=== PATIENT | male | born 1950 | race Caucasian/White ===

== ENCOUNTER → 2017-06-05 | Outpatient (CLI) | payer BC ==
[~2017-06-05] MED LIST: ACC10 PO; ADVIN25050 INH; BUPRTAB51 PO; CALC500T68 PO; CHOL2000 PO; FLM4 PO; HYDC25 PO; MULT-506 PO; OXYC15TA89 PO; POTA550T4 PO; SERT50TA PO; VNTHFA/IN INH
[2017-06-05 12:22] LABS: BLOOD UREA NITROGEN 18 mg/dl (7-18)
[2017-06-05 12:23] LABS: CREATININE 0.92 mg/dl (0.60-1.40)
== END | disposition home or self-care (01) ==
LOC: C.LAB 09:33
PROVIDERS: ATTEND Physician Assistant
DX: Z01.812 Encounter for preprocedural laboratory examination (principal)

== ENCOUNTER 2017-07-10 11:23 | Inpatient (IN) | payer BC, OTHER ==
[~2017-07-10] VITALS: Ht 167.6 cm; Wt 105.2 kg
[2017-07-10] VITALS (8 sets, daily range): BP systolic 107–134; BP diastolic 60–73; PULSE 96–103; TEMP 36.9–37.4; O2SAT 96–97; Ht 167.6 cm; Wt 105.2 kg
[2017-07-10] MEDS ORDERED: SODIUM CHLORIDE 0.9% 1000ML 1,000 ML IV ONE ×3 (12:00→17:30)
[2017-07-10 12:30] LABS: CALCIUM 8.7 mg/dl (8.5-10.1); CREATININE 2.42 mg/dl (0.60-1.40); POTASSIUM 3.4 mmol/L (3.5-5.1)
[2017-07-10 12:36] LABS: HEMATOCRIT 22.9 % (42-52); HEMOGLOBIN 7.6 g/dL (14.0-18.0); MEAN CELL VOLUME 84.8 fL (80-100); MEAN CORPUSCULAR HEMOGLOBIN 28.1 pg (25-34); MEAN CORPUSCULAR HGB CONC 33.2 g/dl (32-36); MEAN PLATELET VOLUME 10.3 fL (7.4-10.4); PLATELET COUNT 256 K/uL (130-400); RED CELL DISTRIBUTION WIDTH SD 43.8 fL (36.4-46.3); WHITE BLOOD COUNT 30.54 K/uL (4.8-10.8)
[2017-07-10 12:42] LABS: BASO ABS # 0.01 K/uL (0-0.2); IG# 0.14 K/uL (0.00-0.02); LYMPH % 2.3 %; LYMPH ABS # 0.69 K/uL (1.2-3.4); MONO % 4.4 %; MONO ABS # 1.34 K/uL (0.11-0.59); NEUT % 92.8 %; NEUT ABS # 28.36 K/uL (1.4-6.5)
--- NOTE | 2017-07-10 12:49 | DIAGNOSTIC IMAGING REPORT ---
SINGLE VIEW CHEST CLINICAL HISTORY: Fever and chills. FINDINGS: An AP, portable, upright chest radiograph is compared to study dated 12/20/2015. The examination is degraded by portable technique and patient rotation. The heart is enlarged and there is atherosclerotic calcification of the thoracic aorta. The pulmonary vasculature is noncongested. There is no airspace consolidation or large pleural effusion. No pneumothorax is seen. The skeletal structures are osteopenic. The bony thorax is grossly intact. Fusion hardware projects over the thoracolumbar junction. Skin clips also project over the back. IMPRESSION: Cardiomegaly with no acute cardiopulmonary abnormality. Electronically signed by: Noel Hanna M.D. 07/10/2017 12:47 PM Dictated Date/Time: 07/10/2017 12:46 PM
[2017-07-10] MEDS ORDERED: METO25TA3 PO (13:01)
[2017-07-10] MEDS ORDERED: GABA1CAP4 PO (13:01)
[2017-07-10] MEDS ORDERED: MORP1TAB11 PO (13:01)
[2017-07-10] MEDS ORDERED: PIPERACILLIN/TAZOBACTAM 4.5 GM/100ML D5W IV STA (13:35)
[2017-07-10] MEDS ORDERED: DAPTOmycin IV 600 MG in SODIUM CHLORIDE 0.9% 50ML 50 ML IV ONE (13:45)
[2017-07-10] MEDS ORDERED: LORAZEPAM 2 MG/ML 1 ML VIAL IV STA (14:59)
--- NOTE | 2017-07-10 15:02 | DIAGNOSTIC IMAGING REPORT ---
ABD/PELVIS NO IV OR ORAL CONT CT DOSE: 1048.54 mGy.cm HISTORY: Pain abd distension; recent back surgery TECHNIQUE: Multiaxial CT images of the abdomen and pelvis were performed without contrast. A dose lowering technique was utilized adhering to the principles of ALARA. COMPARISON STUDY: 11/24/2013 FINDINGS: Hematoma with several contained air bubbles posterior to the low thoracic region. This measures 10 x 3 cm. It is posterior to interval placement of a jose stabilization procedure from the low thoracic through the upper lumbar region. There are small bilateral pleural effusions. There are findings of mild bibasilar atelectatic change. Liver spleen and pancreas are unremarkable. There is mild reactive colonic ileus. There are no obstructive changes. There is no intra-abdominal or intrapelvic free fluid. There is a Mckeon catheter within the bladder. There are pre-existing postoperative changes to the lumbar spine. IMPRESSION: 1. Interval development of a subcutaneous fluid pocket and/or hematoma posterior to the spine involving the low thoracic and upper lumbar region. 2. This appears to relate to interval placement of a jose stabilization procedure of the low thoracic through upper lumbar region. 3. Pre-existing laminectomy and fusion of the upper lumbar region to superior sacrum. 4. Mild reactive small bowel ileus with no true obstructive changes. 5. Small bilateral pleural effusions with bibasilar atelectatic change. The above report was generated using voice recognition software. It may contain grammatical, syntax or spelling errors. Electronically signed by: Jett James M.D. 07/10/2017 3:01 PM Dictated Date/Time: 07/10/2017 2:44 PM
--- NOTE | 2017-07-10 16:00 | DIAGNOSTIC IMAGING REPORT ---
LUMBAR SPINE W/O CONTRAST HISTORY: Pain evaluate for abscess TECHNIQUE: Multiplanar multisequence MRI of the lumbar spine was performed without the use of contrast. COMPARISON: CT abdomen and pelvis same date FINDINGS: For the purpose of the report the L5-S1 disc space will be located on axial image 26 of 33. Nondiagnostic exam due to extensive metallic artifact present. Soft tissue edematous change is noted posterior to the thoracolumbar spine. Appears to been near complete fusion of the thoracolumbar region. Transaxial images show no major compromise of the spinal canal. Evaluation of the low thoracic and upper lumbar region is essentially again nondiagnostic. IMPRESSION: 1. Essentially nondiagnostic exam due to the extensive metallic artifact throughout the low thoracic and lumbar spine. 2. Soft tissue edema posterior to the upper lumbar region and to a lesser extent lower lumbar region. 3. No evidence for focal collection or abscess within the mid to lower lumbar spine. 4. No major compromise of the lower lumbar spinal canal. 5. The study again is nondiagnostic in reference to the low thoracic and upper lumbar region due to the metallic artifact present. The above report was generated using voice recognition software. It may contain grammatical, syntax or spelling errors. Electronically signed by: Jett James M.D. 07/10/2017 3:58 PM Dictated Date/Time: 07/10/2017 3:56 PM
--- NOTE | 2017-07-10 16:15 | DIAGNOSTIC IMAGING REPORT ---
THORACIC SPINE WITHOUT HISTORY: Postoperative pain same TECHNIQUE: Multiplanar multisequence MRI of the thoracic spine was performed without the use of contrast. COMPARISON: CT same date FINDINGS: Nondiagnostic exam due to considerable metallic artifact. The study is nondiagnostic in terms of the low thoracic region. The upper thoracic region shows moderate degenerative disc change. Due to patient motion the study again is essentially nondiagnostic. The mid to upper thoracic region shows degenerative disc change throughout. No major compromise of the spinal canal is present. There is a subcutaneous fluid collection within the subcutaneous tissues extending from the level of T6 inferiorly to mL of minimal T9. This appears to have a maximum linear dimension of 8 cm with transaxial measurements within the subcutaneous fat of 8 x 2 cm. Within limitations of the artifact present, a major extension or significant extension to the spinal canal is appreciated. IMPRESSION: 1. Near nondiagnostic exam due to considerable metallic artifact. 2. Subcutaneous somewhat complex fluid pocket posterior to the thoracic spinal canal from T6 to approximately T9, although it may have more of an inferior extension which is not seen due to metallic artifact. 3. Diagnostic considerations include a subcutaneous hematoma with several small air bubbles most likely present on a postoperative basis. 4. No definite extension to the spinal canal although this is of questionable accuracy due to the severe metallic artifact present. The above report was generated using voice recognition software. It may contain grammatical, syntax or spelling errors. Electronically signed by: Jett James M.D. 07/10/2017 4:14 PM Dictated Date/Time: 07/10/2017 4:09 PM
[2017-07-10] MEDS ORDERED: ICU PROTOCOL FOR HYPERGLYCEMIA PRN ×2 (17:30→22:15)
[2017-07-10] MEDS ORDERED: LORAZEPAM 2 MG/ML 1 ML VIAL IV PRN (17:30)
[2017-07-10] MEDS ORDERED: HYDROmorphone INJ 0.5 MG/0.5 ML SYR IV PRN (17:30)
[2017-07-10] MEDS ORDERED: ACETAMINOPHEN 325 MG TAB PO PRN (17:30)
[2017-07-10] MEDS ORDERED: ONDANSETRON INJ 2 MG/ML 2 ML VIAL IV PRN ×2 (17:30→19:45)
[2017-07-10] MEDS ORDERED: PIPERACILL/TAZOBAC CONSULT ACTIVE PRN (17:45)
[2017-07-10] MEDS ORDERED: DAPTOmycin IV 600 MG in SODIUM CHLORIDE 0.9% 50ML 50 ML IV SCH (17:45)
[2017-07-10] MEDS ORDERED: GLYCOPYRROLATE INJ 0.2 MG/ML VIAL ONE (17:54)
[2017-07-10] MEDS ORDERED: THROMBIN 5000 UNITS KIT ONE (17:54)
[2017-07-10] MEDS ORDERED: ROCURONIUM BROMIDE 10 MG/ML 5 ML VIAL IV ONE (17:54)
[2017-07-10] MEDS ORDERED: SUCCINYLCHOLINE CHLORIDE 20 MG/ML 10 ML VIAL IV ONE (17:54)
[2017-07-10] MEDS ORDERED: LIDOCAINE HCL 2% 2 ML VIAL (20MG/ML) ONE (17:54)
[2017-07-10] MEDS ORDERED: PROPOFOL IV EMULSION 10 MG/ML 20 ML VIAL IV ONE (17:54)
[2017-07-10] MEDS ORDERED: DEXAMETHASONE SOD INJ 4 MG/ML VIAL ONE (17:54)
[2017-07-10] MEDS ORDERED: ONDANSETRON INJ 2 MG/ML 2 ML VIAL ONE (17:54)
[2017-07-10] MEDS ORDERED: NEOSTIGMINE METHYLSULFATE 1 MG/ML 10ML VIAL ONE (17:54)
[2017-07-10] MEDS ORDERED: BACITRACIN 50000 UNIT VIAL ONE ×2 (17:55→17:56)
[2017-07-10] MEDS ORDERED: MIDAZOLAM HCL 1 MG/ML 2ML VIAL ONE (17:55)
[2017-07-10] MEDS ORDERED: FENTANYL CITRATE INJ 50 MCG/1 ML 2 ML VIAL ONE (17:56)
[2017-07-10] MEDS ORDERED: ETOMIDATE 2 MG/ML 20 ML VIAL IV ONE ×2 (17:58→19:38)
[2017-07-10] MEDS ORDERED: KETAMINE HCL INJ 50 MG/ML 10 ML VIAL ONE (17:58)
[2017-07-10] MEDS ORDERED: PIPERACILL/TAZOBAC IV 3.375 GM in DEXTROSE 5% 100ML 100 ML IV SCH (18:00)
--- NOTE | 2017-07-10 18:11 | EMERGENCY ROOM VISIT NOTE ---
ED Visit Note First contact with patient: 11:47 HPI: 67M 12 day s/p T12-L1 fusion here with f/c/rigors, BLE weakness and loss of sensation. Plan: 0/5 strength BLE with loss of sensation from nipple line distally. +1L urinary retention likely neurogenic and likely contributing factor of acute renal failure. MRI non-diagnositic 2/[address] abd/pel demonstrates 10x3 fluid collection posterior to lower T and upper L spine. Given patient's septic presentation patient treated with broad spectrum antibiotics. PA in consultation with Dr. Hill, on-call spine, as well as patient's Spine surgeon , Dr. Torres. Patient to be admitted to ICU. Planned transfusion for Hbg 7.6 to optimize for surgery once medically stable. I reviewed the patient's past medical history, medications, and visit nursing notes. I discussed the case with the physician assistant program manager, examined the patient, and agree with the findings and plan as documented in the physician assistants note.
--- NOTE | 2017-07-10 18:15 | History and Physical ---
History & Physical Date & Time of Service: Jul 10, 2017 at 17:43 Chief Complaint: Back Pain Primary Care Physician: William Hudson D.O. History of Present Illness Source: patient, spouse 67 y/o M Hx HTN, BPH, asthma. Pt underwent T12-L1 fusion 1and hardware placement 2 days prior. A drain was in place until 2 days ago. Since removal of the drain, the pt's reports that he has likely had fevers and has been intermittently somnolent without use of sedatives. The pt developed rigors today and presented to the ER. He was hypotensive on arrival. We could not confirm a fever. Initial labs are notable for leukocytosis, anemia and ARF. A lumbar MRI was obtained and reveals a fluid collection at the surgical site. Image quality is poor owing to surrounding hardware and an abscess could not be confirmed. The orthopedic service was contacted as there is considerable concern for hardware infection. the pt is presumed severely septic and will likely proceed to the OR emergently. 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 Smoking Status: Never Smoker Drug Use: none Marital Status: Occupational Status: employed Immunizations History of Influenza Vaccine: Yes Influenza Vaccine Date: Apr 02, 2008 History of Tetanus Vaccine?: Yes Tetanus Immunization Date: Jun 02, 2005 History of Pneumococcal: Yes Pneumococcal Date: Jun 02, 2000 History of Hepatitis B Vaccine: Yes Hepatitis Immunization Date: Jun 02, 1998 Multi-Drug Resistant Organisms History of MDRO: No Allergies Coded Allergies: No Known Drug Allergy (Verified Allergy, Unknown, ., 07/10/17) POLLEN (Verified Allergy, Unknown, HAY FEVER, 05/22/16) NSAIDs (Verified Adverse Reaction, Unknown, doesn't take had gastric bypass, 07/10/17) Home Medications Scheduled Bupropion (Wellbutrin-Xl), 300 MG PO QAM Calcium W/ Magnesium (Calcium/Magnesium), 1 TAB PO QAM Cholecalciferol (Vitamin D3), 2 CAP PO QAM Fluticasone Prop/Salmeterol (Advair Diskus 250-50 Mcg/Dose), 1 PUFF INH BID Gabapentin (Gabapentin), 300 MG PO HS Hydrochlorothiazide (Hctz *), 25 MG PO QAM Metoprolol Succinate (Toprol Xl), 12.5 MG PO DAILY Morphine Sulfate (Morphine Sulfate Er), 15 MG PO Q12 Multivitamin (Multivitamin), 1 TAB PO QAM Potassium Gluconate (Potassium Gluconate), 1 TAB PO QAM Quinapril Hcl (Accupril *), 40 MG PO QAM Sertraline (Zoloft), 50 MG PO QAM Tamsulosin HCl (Tamsulosin HCl), 0.4 MG PO QAM Scheduled PRN Albuterol Hfa (Ventolin Hfa), 2-4 PUFFS INH Q6H PRN for Shortness of Breath Review of Systems Constitutional: + fever, + chills, + sweats, + weakness, + fatigue Eyes: No worsening of vision ENT: No hearing loss, No nasal symptoms Respiratory: No cough, No sputum Cardiovascular: No chest pain, No orthopnea, No PND Abdomen: No pain, No nausea, No vomiting Musculoskeletal: + joint pain (pain in mid/lower back) Genitourinary - Male: No hematuria, No dysuria Neurologic: + weakness, No memory loss, No paralysis Psychiatric: No depression symptoms Endocrine: No fatigue Hematologic / Lymphatic: No abnormal bleeding/bruising Integumentary: No rash Allergic / Immunologic: No environmental allergies Physical Exam Vital Signs Date Time Temp Pulse Resp B/P (MAP) Pulse Ox O2 Delivery O2 Flow Rate FiO2 07/10/17 17:25 36.9 103 20 107/73 96 2.0 07/10/17 17:23 36.9 103 20 107/73 96 2.0 07/10/17 17:09 36.8 102 20 103/64 95 Nasal Cannula 2.0 07/10/17 16:27 108 07/10/17 16:25 108 20 107/59 92 Room Air 07/10/17 14:00 100 20 97/50 93 Room Air 07/10/17 13:21 99 107/65 93 Room Air 07/10/17 12:05 102 07/10/17 11:39 37.1 101 26 103/57 94 Room Air General Appearance: + pertinent finding (Rigorous and sonolent, overweight, middle-aged male who appears distressed) Head: normocephalic Eyes: normal inspection ENT: normal ENT inspection, pharynx normal Neck: supple, no JVD Respiratory/Chest: chest non-tender, lungs clear, normal breath sounds Cardiovascular: regular rate, rhythm, no edema, no gallop Abdomen/GI: normal bowel sounds, non tender, soft Back: + pertinent finding (erythema surrounding surgical site - pt could not comfortable turn over) Extremities/Musculoskelatal: no calf tenderness, normal capillary refill, + pedal edema Neurologic/Psych: rn medicare II-XII nml as tested, no motor/sensory deficits, alert Skin: normal color, + pertinent finding (Erythema at surgical site) Diagnostics Laboratory Results Results Past 24 Hours Test 07/10/17 11:40 07/10/17 12:09 07/10/17 12:40 07/10/17 14:00 Range/Units White Blood Count 30.54 4.8-10.8 K/uL Red Blood Count 2.70 4.7-6.1 M/uL Hemoglobin 7.6 14.0-18.0 g/dL Hematocrit 22.9 42-52 % Mean Corpuscular Volume 84.8 80-100 fL Mean Corpuscular Hemoglobin 28.1 25-34 pg Mean Corpuscular Hemoglobin Concent 33.2 32-36 g/dl Platelet Count 256 130-400 K/uL Mean Platelet Volume 10.3 7.4-10.4 fL Neutrophils (%) (Auto) 92.8 % Lymphocytes (%) (Auto) 2.3 % Monocytes (%) (Auto) 4.4 % Eosinophils (%) (Auto) 0.0 % Basophils (%) (Auto) 0.0 % Neutrophils # (Auto) 28.36 1.4-6.5 K/uL Lymphocytes # (Auto) 0.69 1.2-3.4 K/uL Monocytes # (Auto) 1.34 0.11-0.59 K/uL Eosinophils # (Auto) 0.00 0-0.5 K/uL Basophils # (Auto) 0.01 0-0.2 K/uL RDW Standard Deviation 43.8 36.4-46.3 fL RDW Coefficient of Variation 14.0 11.5-14.5 % Immature Granulocyte % (Auto) 0.5 % Immature Granulocyte # (Auto) 0.14 0.00-0.02 K/uL Large Platelets 1+ Erythrocyte Sedimentation Rate 63 0-14 mm/hr Sodium Level 133 136-145 mmol/L Potassium Level 3.4 3.5-5.1 mmol/L Chloride Level 99 98-107 mmol/L Carbon Dioxide Level 24 21-32 mmol/L Anion Gap 10.0 3-11 mmol/L Blood Urea Nitrogen 53 7-18 mg/dl Creatinine 2.42 0.60-1.40 mg/dl Est Creatinine Clear Calc Drug Dose 33.2 ml/min Estimated GFR () 31.1 Estimated GFR (Non- 26.8 BUN/Creatinine Ratio 21.9 10-20 Random Glucose 72 70-99 mg/dl Calcium Level 8.7 8.5-10.1 mg/dl C-Reactive Protein 37.30 0-0.29 mg/dl Lipase 76 73-393 U/L Bedside Glucose 98 70-99 mg/dl Bedside Lactic Acid Venous 0.94 0.90-1.70 mmol/L Urine Color DK YELLOW Urine Appearance CLOUDY CLEAR Urine pH 5.0 4.5-7.5 Urine Specific [place] 1.023 1.000-1.030 Urine Protein 1+ NEG Urine Glucose (UA) NEG NEG Urine Ketones TRACE NEG Urine Occult Blood 2+ NEG Urine Nitrite NEG NEG Urine Bilirubin NEG NEG Urine Urobilinogen NEG NEG Urine Leukocyte Esterase NEG NEG Urine WBC (Auto) 1-5 0-5 /hpf Urine RBC (Auto) 0-4 0-4 /hpf Urine Hyaline Casts (Auto) 1-5 0-5 /lpf Urine Epithelial Cells (Auto) >30 0-5 /lpf Urine Bacteria (Auto) NEG NEG Urine Renal Epithelial Cells 0-5 0-5 /lpf Urine Crystals TALC NONE PRSENT Urine Pathogenic Casts 1-5 GRANULAR CASTS 0 /lpf Urine Yeast (Auto) NONE PRSENT Microbiology Results 07/10/17 Blood Culture, Received Pending 07/10/17 Blood Culture, Received Pending 07/10/17 Urine Culture, Received Pending Diagnostic Radiology MRI lumbar 1. Near nondiagnostic exam due to considerable metallic artifact. 2. Subcutaneous somewhat complex fluid pocket posterior to the thoracic spinal canal from T6 to approximately T9, although it may have more of an inferior extension which is not seen due to metallic artifact. 3. Diagnostic considerations include a subcutaneous hematoma with several small air bubbles most likely present on a postoperative basis. 4. No definite extension to the spinal canal although this is of questionable accuracy due to the severe metallic artifact present. EKG Sinus tach - PVCs Impression Assessment and Plan 67 y/o M Hx HTN, BPH, asthma. Pt underwent T12-L1 fusion 1and hardware placement 2 days prior. A drain was in place until 2 days ago. Since removal of the drain, the pt's reports that he has likely had fevers and has been intermittently somnolent without use of sedatives. The pt developed rigors today and presented to the ER. He was hypotensive on arrival. We could not confirm a fever. Initial labs are notable for leukocytosis, anemia and ARF. A lumbar MRI was obtained and reveals a fluid collection at the surgical site. Image quality is poor owing to surrounding hardware and an abscess could not be confirmed. The orthopedic service was contacted as there is considerable concern for hardware infection. the pt is presumed severely septic and will likely proceed to the OR emergently. 1) Sepsis - presumably due to post-op spinal infection - pt assigned to the ICU - orthopedics consulted, laundry operator finishing notified. We have placed him on Dapto/ Zosyn pending culture results. Aggressive IVF provided - may need pressors if hypotension recurs. A lactic acid is pending. he will likely need to proceed to the OR despite critical condition. have spoken to the pt and his in detail regarding his current condition. 2) ARF - likely due to sepsis and volume depletion - IVF provided - trend BMP 3) Anemia - we are transfusing 2 units PRBCs - he may need 2 additional units depending on operative blood loss. 4) HTN - Meds held due to hypotension 5) BPH - catheter to be placed - cont Flomax Full code - SCDs Total time for this admit including review of labs, meds, imaging, EKG - discussion with pt, , laundry operator finishing, orthopedist and ER attending - inc critical care time - 55 mi Level of Care Critical Care Resuscitation Status FULL RESUSCITATION VTE Prophylaxis VTE Risk Assessment Done? Y/N: Yes Risk Level: Moderate Given or contraindicated: SCD's
[2017-07-10] MEDS ORDERED: ESMOLOL HCL 10 MG/ML 10 ML VIAL ONE (19:31)
[2017-07-10] MEDS ORDERED: CISATRACURIUM BESYLATE IV SOLN 2 MG/ML 10 ML VIAL ONE (19:31)
[2017-07-10] MEDS ORDERED: PHENYLEPHRINE HCL INJ 10 MG/ML VIAL ONE ×2 (19:39→19:46)
[2017-07-10] MEDS ORDERED: PHENYLEPHRINE 100MCG/ML 5ML SYR ONE (19:39)
[2017-07-10] MEDS ORDERED: EpHEDrine SULFATE INJ 50 MG/ML AMP IV PRN (19:45)
[2017-07-10] MEDS ORDERED: ATROPINE SULFATE 0.1 MG/ML 5ML SYR IV PRN (19:45)
[2017-07-10] MEDS ORDERED: HYDROmorphone INJ 1 MG/ML SYR IV PRN (19:45)
[2017-07-10] MEDS ORDERED: NALOXONE HCL 0.4 MG/1 ML VIAL/CARP IV PRN (19:45)
[2017-07-10] MEDS ORDERED: THROMBIN FOR SOLN 20000 UNIT KIT ONE (19:46)
[2017-07-10] MEDS ORDERED: FLOSEAL HEMOSTATIC MATRIX 5ML TOP ONE (20:21)
--- NOTE | 2017-07-10 20:34 | [facility] Post Operative Brief Note ---
Immediate Operative Summary Operative Date Jul 10, 2017. Pre-Operative Diagnosis Thoraco-lumbar spinal abscess Post-Operative Diagnosis Thoraco-lumbar spinal abscess Procedure(s) Performed T10-T11 Laminectomy, I&D Surgeon Dr. Torres Patrol Man Surgeon(s) OR staff Estimated Blood Loss 300cc Findings Consistent with Post-Op Diagnosis Specimens A. Explanted Hardware For Culture: 1. Thoracic Abscess - routine - gram stain, aerobic/anaerobic, c+s Anesthesia Type General Complication(s) none Disposition Accompanied Pt To Recover: yes Disposition: Surgical ICU
--- NOTE | 2017-07-10 20:37 | DIAGNOSTIC IMAGING REPORT ---
SPINE ONE VIEW, ANY LEVEL CLINICAL HISTORY: I D SPINE COMPARISON STUDY: Lumbar spine MRI July 10, 2017. Fluoroscopy time: 2 seconds. FINDINGS: Exact localization is difficult given partial visualization of the spine however a multilevel thoracolumbar spine fusion is partially imaged. Surgical instrument is likely at the T10-T11 level. IMPRESSION: Intraoperative localization likely at the T10-T11 level. Electronically signed by: Kelton Muolton M.D. 07/10/2017 8:35 PM Dictated Date/Time: 07/10/2017 8:32 PM
[2017-07-10 20:57] LABS: HEMATOCRIT 23.9 % (42-52); HEMOGLOBIN 8.1 g/dL (14.0-18.0)
--- NOTE | 2017-07-10 21:02 | EMERGENCY ROOM VISIT NOTE ---
ED Visit Note First contact with patient: 11:47 Chief Complaint: Bilateral lower leg numbness and paralysis. History of Present Illness: Mr. eLvi is a 67-year-old white male who is brought into the ED via ambulance accompanied by his complaining of bilateral leg numbness and paralysis. Historically patient had a spinal fusion starting at the level of L1 to L5 many years ago and had no complications. On 06/29/2017 he had a spinal fusion from T10 to L1. This surgery was performed by Dr. Pelletier at the [facility]. He reports since the surgery his pain has been well- controlled. reports that his surgical drain was removed on Sunday, July 07, and reports there was a lot of bleeding when the drain was removed. Patient goes on to report that yesterday he started having some chills and felt he may have had a fever. Then late last night he started having weakness in both legs and was not able to bear weight. Today EMS was activated and he was transferred into the ED. EMS reports patient was slightly hypotensive and tachycardic. He had no acute changes en route. On my initial evaluation patient's only complaint was a mild pulling sensation in the cervical area. He was unable to rate this discomfort. He did not identify any aggravating or alleviating factors related to this sensation. He has not taken any medications for this sensation prior to arrival at the hospital. Patient still complains of chills and rigors, decreased appetite, decreasing urination and decreasing bowel movements. He denies skin eruptions, skin color changes, headache, dizziness, lightheadedness, upper respiratory tract, cough, wheezing, shortness of breath, chest pain, palpitations, abdominal pain, nausea, vomiting, bloody stools, bloody urine, upper extremity weakness/numbness/tingling. Additionally reports that she noted last evening his abdomen appeared distended. Patient agrees with this remark but still denies abdominal pain. Review of Systems: As noted above in history of present illness. All body systems were reviewed and found to be negative as noted above. Past Medical History: As previously noted, hypertension, Current Medications: Medications Dose Route/Sig Max Daily Dose Days Date Category Gabapentin 300 Mg Cap 300 Mg PO HS 07/10/17 Reported Toprol Xl (Metoprolol Succinate) 25 Mg Tabcr 12.5 Mg PO DAILY 07/10/17 Reported Morphine Sulfate Er (Morphine Sulfate) 15 Mg Tab 15 Mg PO Q12 07/10/17 Reported Calcium/Magnesium (Calcium W/ Magnesium) 1 Tab 1 Tab PO QAM 05/22/16 Reported Potassium Gluconate 550 Mg Tab 1 Tab PO QAM 05/22/16 Reported Multivitamin (Multivitamins) Tab 1 Tab PO QAM 05/22/16 Reported Vitamin D3 (Cholecalciferol) 2,000 Unit Cap 2 Cap PO QAM 90 05/22/16 Reported Ventolin Hfa (Albuterol) 200 Puffs/43842 Mcg Aers 2-4 Puffs INH Q6H PRN 05/22/16 Reported Advair Diskus 250-50 Mcg/Dose (Fluticasone Prop/Salmeterol) 14 Puff/1 Inhaler Aerp 1 Puff INH BID 05/22/16 Reported Wellbutrin-Xl (Bupropion HCl) 300 Mg Tabcr 300 Mg PO QAM 11/24/13 Reported Tamsulosin HCl 0.4 Mg Cap 0.4 Mg PO QAM 11/24/13 Reported Zoloft (Sertraline HCl) 50 Mg Tab 50 Mg PO QAM 11/05/08 Reported Hctz * (Hydrochlorothiazide) 25 Mg Tab 25 Mg PO QAM 11/05/08 Reported Accupril * (Quinapril HCl) 40 Mg Tab 40 Mg PO QAM 11/05/08 Reported Allergies to Medications: NSAIDs. Social History: Patient is currently employed; he feels safe in his home environment; he denies tobacco use. Physical Examination: Vital Signs: Date Time Temp Pulse Resp B/P (MAP) Pulse Ox O2 Delivery O2 Flow Rate FiO2 07/10/17 18:12 37.0 101 20 113/72 95 Nasal Cannula 2.0 07/10/17 17:55 37.0 102 20 113/72 96 2.0 07/10/17 17:40 37.4 103 20 112/60 96 2.0 07/10/17 17:25 36.9 103 20 107/73 96 2.0 07/10/17 17:23 36.9 103 20 107/73 96 2.0 07/10/17 17:09 36.8 102 20 103/64 95 Nasal Cannula 2.0 07/10/17 16:27 108 07/10/17 16:25 108 20 107/59 92 Room Air 07/10/17 14:00 100 20 97/50 93 Room Air 07/10/17 13:21 99 107/65 93 Room Air 07/10/17 12:05 102 07/10/17 11:39 37.1 101 26 103/57 94 Room Air GENERAL: 67-year-old male in mild distress due to pain, toxic-appearing, afebrile and hemodynamically stable. NEUROLOGICAL: Awake, alert and oriented to person, place and time. Answering questions appropriately and following commands. Good hand eye coordination. Intermittently patient is found mumbling and talking to himself and possibly show sign for delirium. No sensation to light touch starting at below his nipples extending throughout the abdomen and into the lower extremities. SKIN: Warm, dry and pink. No soft tissue eruptions or trauma noted. Surgical site is clean dry and intact. HEENT: Atraumatic and normocephalic. PERRLA. Sclera white and conjunctiva pink. No drainage from naris. Oral cavity moist and pink. Pharynx is nonerythematous or edematous. Speech normal, slightly slow to respond. No lymphadenopathy. Trachea midline. No jugular venous distention. BACK: No tenderness over the bony spine. Surgical site is slightly tender to palpation but there is no erythema or ecchymosis. No CVA tenderness. THORAX: Lungs sounds are clear to auscultation and equal bilaterally with symmetrical chest wall. No wheezing, rales or rhonchi. HEART: Irregular rate and rhythm. No gallops, rubs or murmurs are appreciated. ABDOMEN: Distended and soft with mild tenderness in the lower abdomen bilaterally. Decreased bowel sounds in all quadrants. No guarding, rigidity or organomegaly. UPPER EXTREMITIES: Moves upper extremities well on command and with purpose. All distal neurovascular statuses are intact and equal bilaterally. 4/5 muscle strength in all movements of the shoulder, elbow, forearm and wrist. LOWER EXTREMITY: No tenderness over the hips, knees, ankles or feet. As previously noted he is not able to distinguish light sensations through any of these areas. No gross bony deformity or malrotation. He was not able to move the hip joints, knee and ankle joints. Mild dependent bilateral edema. Capillary refill was brisk and he had distal pulses intact and equal bilaterally. No calf tenderness or cords. ED Course: Patient is assessed as noted above. Patient's medication list was reviewed. Laboratory Testing: Medications Dose Route/Sig Max Daily Dose Days Date Category Gabapentin 300 Mg Cap 300 Mg PO HS 07/10/17 Reported Toprol Xl (Metoprolol Succinate) 25 Mg Tabcr 12.5 Mg PO DAILY 07/10/17 Reported Morphine Sulfate Er (Morphine Sulfate) 15 Mg Tab 15 Mg PO Q12 07/10/17 Reported Calcium/Magnesium (Calcium W/ Magnesium) 1 Tab Tab 1 Tab PO QAM 05/22/16 Reported Potassium Gluconate 550 Mg Tab 1 Tab PO QAM 05/22/16 Reported Multivitamin (Multivitamins) Tab 1 Tab PO QAM 05/22/16 Reported Vitamin D3 (Cholecalciferol) 2,000 Unit Cap 2 Cap PO QAM 90 05/22/16 Reported Ventolin Hfa (Albuterol) 200 Puffs/29718 Mcg Aers 2-4 Puffs INH Q6H PRN 05/22/16 Reported Advair Diskus 250-50 Mcg/Dose (Fluticasone Prop/Salmeterol) 14 Puff/1 Inhaler Aerp 1 Puff INH BID 05/22/16 Reported Wellbutrin-Xl (Bupropion HCl) 300 Mg Tabcr 300 Mg PO QAM 11/24/13 Reported Tamsulosin HCl 0.4 Mg Cap 0.4 Mg PO QAM 11/24/13 Reported Zoloft (Sertraline HCl) 50 Mg Tab 50 Mg PO QAM 11/05/08 Reported Hctz * (Hydrochlorothiazide) 25 Mg Tab 25 Mg PO QAM 11/05/08 Reported Accupril * (Quinapril HCl) 40 Mg Tab 40 Mg PO QAM 11/05/08 Reported Chest X-Ray: Was read by myself and the radiologist showing no acute infiltrates , effusions or pneumothorax. Radiologist note that the heart is enlarged and there is atherosclerotic calcification within the thoracic aorta. Noncontrast Abdominal/Pelvic CT: Was reviewed by myself and read by the radiologist showing interval development of a subcutaneous fluid pocket and/or hematoma posterior to the spine involving the lower thoracic and upper lumbar region. Interval placement of his spinal fusion. Previous laminectomy and fusion of the lumbar spine. Mild reactive small bowel loops consistent with an ileus but no obstructive changes and small bilateral pleural effusions and bibasilar atelectasis changes. Lumbar MRI Without Contrast: Was read by the radiologist and reviewed by myself showing essentially a nondiagnostic exam due to extensive metal artifact, soft tissue edema posterior to the upper lumbar region, no evidence of focal collection or abscess, no major compromises of the lower lumbar spinal canal. Thoracic MRI Without Contrast: Was reviewed by myself and read by the radiologist and shows a near nondiagnostic examination due to metal artifact, subcutaneous complex fluid pocket posterior to the thoracic spinal canal from T6 to T9, no definitive extension noted but questionable because of metallic artifact. Patient was hydrated with approximately 3 L of normal saline and received 4.5 mg of Zosyn IV and 600 mg of daptomycin IV. Additionally patient was tremulous during his MRI and received 0.5 mg of Ativan IV. Patient was reassessed multiple times during his stay in the emergency department. Patient's case was reviewed with Dr. Roy; in apparently assessed the patient we agreed on diagnostic approach, treatment, disposition and plan. Patient's case was consulted with Dr. Pelletier, orthopedic spine surgeon; he reported that he was not in town the day and that he would be calling Dr. Hill , orthopedic senior regulatory affairs specialist, to have the patient be further evaluated. Patient's case was consulted with Dr. Hill; on initial consultation he reports he had just talked with Dr. Pelletier, and that he would further evaluate the patient when the patient's MRI reading was back. Patient's case was consulted with case management and Dr. Leung, hospitalist; for medical admission. I did once again reconsult Dr. Hill and Dr. Pelletier once patient's MRIs and additional studies were completed; Dr. Pelletier reported that he was coming to the hospital to evaluate the patient for possible surgery. Patient was typed and crossed for 2 units of packed red blood cells and were ordered to be given. Patient and his were educated about today's findings. Clinical Impression: Acute sepsis. Probable surgical abscess and hematoma. Lower extremity paralysis. Acute kidney injury. Decision-Making: Initially my differential diagnosis I considered postsurgical abscess, hematoma, sepsis, and other causes. Patient's blood pressure: Hypotensive. Blood pressure disposition: Fluids. Disposition and Plan: Patient's care was transferred to Dr. Pelletier and Dr. Leung; at the time of transfer of care the 2 physicians were deciding whether the patient should be taking to the arm immediately for surgical evaluation or admitted to the ICU for further stabilization and then surgery. I have personally spent greater than 60 minutes of critical care time in the direct management of this patient. This includes bedside care, interpretation of diagnostic studies, and testing, discussion with consultants, patient, and family members, and other required patient management activities. This 30 minutes is in excess of all separately billable procedures.
--- NOTE | 2017-07-10 21:24 | Anesthesiology Progress Note ---
Anesthesia Post Op Note Date & Time Jul 10, 2017 at 21:24 Vital Signs Pain Intensity: 0 Vital Signs Past 12 Hours Date Time Temp Pulse Resp B/P (MAP) Pulse Ox O2 Delivery O2 Flow Rate FiO2 07/10/17 21:10 37.0 97 18 96 Oxymask 3 103/51 07/10/17 21:00 96 18 98 Oxymask 5 91/47 07/10/17 20:50 99 18 106/51 100 Oxymask 5 93/47 07/10/17 20:41 37.3 99 20 106/51 100 Oxymask 10 07/10/17 18:43 37.0 105 20 125/71 96 07/10/17 18:12 37.0 101 20 113/72 95 Nasal Cannula 2.0 07/10/17 17:55 37.0 102 20 113/72 96 2.0 07/10/17 17:40 37.4 103 20 112/60 96 2.0 07/10/17 17:25 36.9 103 20 107/73 96 2.0 07/10/17 17:23 36.9 103 20 107/73 96 2.0 07/10/17 17:09 36.8 102 20 103/64 95 Nasal Cannula 2.0 07/10/17 16:27 108 07/10/17 16:25 108 20 107/59 92 Room Air 07/10/17 14:00 100 20 97/50 93 Room Air 07/10/17 13:21 99 107/65 93 Room Air 07/10/17 12:05 102 07/10/17 11:39 37.1 101 26 103/57 94 Room Air Notes Mental Status: alert / awake / arousable, participated in evaluation Pt Amnestic to Procedure: Yes Nausea / Vomiting: adequately controlled Pain: adequately controlled Airway Patency, RR, SpO2: stable & adequate BP & HR: stable & adequate Hydration State: stable & adequate Anesthetic Complications: no major complications apparent
[2017-07-10 21:26] LABS: CREATININE 2.09 mg/dl (0.60-1.40)
[2017-07-10] MEDS ORDERED: D5W AND LACTATED RINGERS 1,000 ML IV SCH (21:30)
[2017-07-10 21:37] LABS: CALCIUM 7.5 mg/dl (8.5-10.1)
[2017-07-10] MEDS ORDERED: POTASSIUM CHLR 10 MEQ / WTR 10 MEQ in PREMIXED WATER 100 ML IV STA (21:40)
--- NOTE | 2017-07-10 21:41 | Critical Care Consultation ---
Critical Care Consultation Date of Consultation: Jul 10, 2017. Attending Physician: Eleuterio Leung M.D. Reason for Consultation: 67-year-old male with acute blood loss anemia, sepsis, hypovolemic shock, and JORDAN who underwent emergent T 10-11 laminectomy with I&D of lumbar abscess. History of Present Illness Patient is a 67-year-old male with a company past medical history multiple orthopedic surgeries, particularly of the lumbar spine. The patient underwent surgical intervention of the lumbar spine with hardware [place] on [place] [facility] [place] The patient was discharged on 07/01 with home health. Up to that point, he had been ambulating in his house with a walker and pain had been adequately controlled. On Sunday, 07/07, the PAT drain was removed. It was reported that there was a moderate amount of blood with the drain was removed. Since that time, the patient has noticed progressively worsening numbness from the upper abdomen down his legs. Yesterday, the patient developed increasing weakness and actually sustained a fall while attempting to stand up from a recliner. He had to be helped from the ground by his . Today, the patient was reportedly somewhat confused and felt lightheadedness in addition to weakness. He reports he has been unable to use his legs today. He describes complete numbness from his feet to his belly button. Patient presents to the ER today secondary to the above-mentioned complaints. He was found to have a significant leukocytosis of greater than 30,000. He had an acute anemia of 7.6 and 22.9. He received [address] as well as MRI of the thoracic and lumbar spines demonstrated possible hematoma versus abscess collection. Patient's blood pressure improved with aggressive IV fluid resuscitation. He was subsequently directed to the operating room under the care of Dr. Pelletier for emergent laminectomy with hardware removal and incision and drainage. Upon arrival to the ICU, the patient is awake, alert, and oriented. He describes minimal discomfort at this point. He reports that he has been thirsty over the last few days, but has had little urine output. He reports no history of prostate issues despite Flomax on his EMR. Patient currently denies any headaches, dizziness, blurry vision, chest pain, palpitations, shortness of breath, nausea, vomiting, hematochezia, melena, hematuria, or dysuria. Patient lives with family. He denies any smoking history, alcohol abuse, or illicit drug use. Past Medical/Surgical History Medical Problems: (1) Kidney stones (2) Sepsis (3) Spinal abscess (4) Hypertension (5) DARYL (6) Asthma (7) Depression (8) Osteoarthritis Surgical Problems: (1) H/O spinal fusion Family History No pertinent family history Noncontributory Social History Smoking Status: Never Smoker Smokeless Tobacco Use: No Alcohol Use: none Drug Use: none Marital Status: Housing Status: lives with significant other Occupation Status: employed Allergies Coded Allergies: No Known Drug Allergy (Verified Allergy, Unknown, ., 07/10/17) POLLEN (Verified Allergy, Unknown, HAY FEVER, 05/22/16) NSAIDs (Verified Adverse Reaction, Unknown, doesn't take had gastric bypass, 07/10/17) Home Medications Scheduled Bupropion (Wellbutrin-Xl), 300 MG PO QAM Calcium W/ Magnesium (Calcium/Magnesium), 1 TAB PO QAM Cholecalciferol (Vitamin D3), 2 CAP PO QAM Fluticasone Prop/Salmeterol (Advair Diskus 250-50 Mcg/Dose), 1 PUFF INH BID Gabapentin (Gabapentin), 300 MG PO HS Hydrochlorothiazide (Hctz *), 25 MG PO QAM Metoprolol Succinate (Toprol Xl), 12.5 MG PO DAILY Morphine Sulfate (Morphine Sulfate Er), 15 MG PO Q12 Multivitamin (Multivitamin), 1 TAB PO QAM Potassium Gluconate (Potassium Gluconate), 1 TAB PO QAM Quinapril Hcl (Accupril *), 40 MG PO QAM Sertraline (Zoloft), 50 MG PO QAM Tamsulosin HCl (Tamsulosin HCl), 0.4 MG PO QAM Scheduled PRN Albuterol Hfa (Ventolin Hfa), 2-4 PUFFS INH Q6H PRN for Shortness of Breath Current Inpatient Medications Current Inpatient Medications Medications (Trade) Dose Ordered Sig/Fabricio Route Start Time Stop Time Status Last Admin Dose Admin Acetaminophen (Tylenol Tab) 650 mg Q4H PRN PO 07/10/17 17:30 08/09/17 17:29 Lorazepam (Ativan Inj) 0.5 mg Q4H PRN IV 07/10/17 17:30 08/09/17 17:29 Ondansetron HCl (Zofran Inj) 4 mg Q6H PRN IV 07/10/17 17:30 08/09/17 17:29 Pantoprazole Sodium 40 mg/ Syringe 10 ml @ 5 mls/min DAILY IV 07/11/17 09:00 07/14/17 09:01 UNV Hydromorphone HCl (Dilaudid Inj) 0.5 mg Q4H PRN IV 07/10/17 17:30 07/24/17 17:29 Miscellaneous Information (Icu Protocol For Hyperglycemia) 1 ea PRN PRN N/A 07/10/17 17:30 07/12/17 17:29 Piperacillin Sod/ Tazobactam Sod 3.375 gm/Dextrose 115 ml @ 200 mls/hr Q6 IV 07/10/17 18:00 08/21/17 17:59 UNV Miscellaneous Information (Consult) 1 ea UD PRN N/A 07/10/17 17:45 08/09/17 17:44 UNV Daptomycin 600 mg/ Sodium Chloride 62 ml @ 100 mls/hr Q24H IV 07/10/17 17:45 07/24/17 17:44 UNV Dextrose/Lactated Ringer's 1,000 ml @ 200 mls/hr Q5H IV 07/10/17 21:30 08/09/17 21:29 Bupropion HCl (Wellbutrin-Xl Tab) 300 mg QAM PO 07/11/17 09:00 08/10/17 08:59 Salmeterol Xinafoate/ Fluticasone (Advair Diskus 250/50 Inh) 1 puff BID INH 07/10/17 21:00 08/09/17 20:59 Gabapentin (Neurontin Cap) 300 mg HS PO 07/10/17 21:00 08/09/17 20:59 Sertraline HCl (Zoloft Tab) 50 mg QAM PO 07/11/17 09:00 08/10/17 08:59 Tamsulosin HCl (Flomax Cap) 0.4 mg QAM PO 07/11/17 09:00 08/10/17 08:59 Hydromorphone HCl (Dilaudid Inj) 0.25 mg Q5M PRN IV 07/10/17 19:45 07/11/17 00:45 Naloxone HCl (Narcan Inj) 0.2 mg Q2M PRN IV 07/10/17 19:45 07/11/17 00:45 Ondansetron HCl (Zofran Inj) 4 mg ONE PRN IV 07/10/17 19:45 07/11/17 00:45 Ephedrine Sulfate (EpHEDrine SULFATE INJ) 5 mg Q5M PRN IV 07/10/17 19:45 07/11/17 00:45 Atropine Sulfate (Atropine Sulfate 0.1mg/ml Inj) 0.5 mg Q1M PRN IV 07/10/17 19:45 07/11/17 00:45 Review of Systems A complete 10-point Review of Systems was discussed with the patient, with pertinent positives and negatives listed in the History of Present Illness. All remaining Review of Systems questions can be considered negative unless otherwise specified. Physical Exam Date Time Temp Pulse Resp B/P (MAP) Pulse Ox O2 Delivery O2 Flow Rate FiO2 07/10/17 21:10 37.0 97 18 96 Oxymask 3 103/51 07/10/17 21:00 96 18 98 Oxymask 5 91/47 07/10/17 20:50 99 18 106/51 100 Oxymask 5 93/47 07/10/17 20:41 37.3 99 20 106/51 100 Oxymask 10 07/10/17 18:43 37.0 105 20 125/71 96 07/10/17 18:12 37.0 101 20 113/72 95 Nasal Cannula 2.0 07/10/17 17:55 37.0 102 20 113/72 96 2.0 07/10/17 17:40 37.4 103 20 112/60 96 2.0 07/10/17 17:25 36.9 103 20 107/73 96 2.0 07/10/17 17:23 36.9 103 20 107/73 96 2.0 07/10/17 17:09 36.8 102 20 103/64 95 Nasal Cannula 2.0 07/10/17 16:27 108 07/10/17 16:25 108 20 107/59 92 Room Air 07/10/17 14:00 100 20 97/50 93 Room Air 07/10/17 13:21 99 107/65 93 Room Air 07/10/17 12:05 102 07/10/17 11:39 37.1 101 26 103/57 94 Room Air VITAL SIGNS - Vital signs and nursing notes were reviewed. GENERAL - 67-year-old male appearing his stated age who is in no acute distress. Communicates well with provider and answers questions appropriately. HEAD - NC/AT. EYES - PERRL with EOMI bilaterally. Sclera anicteric. Palpebral conjunctiva pink and moist with no injection noted. EARS - No deformities of external structures noted on gross examination bilaterally. NOSE - Midline and without cyanosis. MOUTH/OROPHARYNX - Without perioral cyanosis. Buccal mucosa pink and dry. NECK - Neck with FROM. Supple to palpation. LUNGS - Chest wall symmetric without accessory muscle use, intercostals retractions, or central cyanosis. Normal vesicular breath sounds CTA B/L. No wheezes, rales, or rhonchi appreciated. CARDIAC - RRR with S1/S2. No murmur, rubs, or gallops appreciated. ABDOMEN - Abdominal contour obese without pulsations or visible masses. BS normoactive all four quadrants. No tenderness, palpable masses, hepatosplenomegaly, or ascites noted. EXTREMITIES - No clubbing or peripheral cyanosis. No pretibial edema present. +3 /5 radial and dorsalis pedis pulses palpated throughout. Unable to assess strength in the bilateral lower extremities secondary to peripheral weakness. Upper extremities with +2/5 strength bilaterally. Absent. Patellar reflexes on exam. Unable to discriminate sensation to light or sharp sensation to the bilateral lower extremities up to the midportion of the abdomen. NEUROLOGIC - Cranial nerves II through XII grossly intact. Extremity exam as above. PSYCH - A&Ox3 and cooperates fully with examiner. Pt is very pleasant and interacts well with examiner. Laboratory Results Last 24 Hours Test 07/10/17 11:40 07/10/17 12:09 07/10/17 12:40 07/10/17 14:00 White Blood Count 30.54 K/uL Red Blood Count 2.70 M/uL Hemoglobin 7.6 g/dL Hematocrit 22.9 % Mean Corpuscular Volume 84.8 fL Mean Corpuscular Hemoglobin 28.1 pg Mean Corpuscular Hemoglobin Concent 33.2 g/dl Platelet Count 256 K/uL Mean Platelet Volume 10.3 fL Neutrophils (%) (Auto) 92.8 % Lymphocytes (%) (Auto) 2.3 % Monocytes (%) (Auto) 4.4 % Eosinophils (%) (Auto) 0.0 % Basophils (%) (Auto) 0.0 % Neutrophils # (Auto) 28.36 K/uL Lymphocytes # (Auto) 0.69 K/uL Monocytes # (Auto) 1.34 K/uL Eosinophils # (Auto) 0.00 K/uL Basophils # (Auto) 0.01 K/uL RDW Standard Deviation 43.8 fL RDW Coefficient of Variation 14.0 % Immature Granulocyte % (Auto) 0.5 % Immature Granulocyte # (Auto) 0.14 K/uL Large Platelets 1+ Erythrocyte Sedimentation Rate 63 mm/hr Sodium Level 133 mmol/L Potassium Level 3.4 mmol/L Chloride Level 99 mmol/L Carbon Dioxide Level 24 mmol/L Anion Gap 10.0 mmol/L Blood Urea Nitrogen 53 mg/dl Creatinine 2.42 mg/dl Est Creatinine Clear Calc Drug Dose 33.2 ml/min Estimated GFR () 31.1 Estimated GFR (Non- 26.8 BUN/Creatinine Ratio 21.9 Random Glucose 72 mg/dl Calcium Level 8.7 mg/dl C-Reactive Protein 37.30 mg/dl Lipase 76 U/L Bedside Glucose 98 mg/dl Bedside Lactic Acid Venous 0.94 mmol/L Urine Color DK YELLOW Urine Appearance CLOUDY Urine pH 5.0 Urine Specific [place] 1.023 Urine Protein 1+ Urine Glucose (UA) NEG Urine Ketones TRACE Urine Occult Blood 2+ Urine Nitrite NEG Urine Bilirubin NEG Urine Urobilinogen NEG Urine Leukocyte Esterase NEG Urine WBC (Auto) 1-5 /hpf Urine RBC (Auto) 0-4 /hpf Urine Hyaline Casts (Auto) 1-5 /lpf Urine Epithelial Cells (Auto) >30 /lpf Urine Bacteria (Auto) NEG Urine Renal Epithelial Cells 0-5 /lpf Urine Crystals TALC Urine Pathogenic Casts 1-5 GRANULAR CASTS /lpf Urine Yeast (Auto) Test 07/10/17 17:58 07/10/17 20:49 Lactic Acid Level 0.9 mmol/L Hemoglobin 8.1 g/dL Hematocrit 23.9 % Sodium Level 138 mmol/L Potassium Level 3.0 mmol/L Chloride Level 108 mmol/L Carbon Dioxide Level 22 mmol/L Anion Gap 8.0 mmol/L Blood Urea Nitrogen 52 mg/dl Creatinine 2.09 mg/dl Est Creatinine Clear Calc Drug Dose 38.5 ml/min Estimated GFR () 37.1 Estimated GFR (Non- 32.0 BUN/Creatinine Ratio 25.0 Random Glucose 93 mg/dl Calcium Level 7.5 mg/dl Diagnostic Results Radiological imaging and reports were reviewed by myself. Radiologist's Interpretation as follows: SPINE ONE VIEW, ANY LEVEL CLINICAL HISTORY: I D SPINE COMPARISON STUDY: Lumbar spine MRI July 10, 2017. Fluoroscopy time: 2 seconds. FINDINGS: Exact localization is difficult given partial visualization of the spine however a multilevel thoracolumbar spine fusion is partially imaged. Surgical instrument is likely at the T10-T11 level. IMPRESSION: Intraoperative localization likely at the T10-T11 level. THORACIC SPINE WITHOUT HISTORY: Postoperative pain same TECHNIQUE: Multiplanar multisequence MRI of the thoracic spine was performed without the use of contrast. COMPARISON: CT same date FINDINGS: Nondiagnostic exam due to considerable metallic artifact. The study is nondiagnostic in terms of the low thoracic region. The upper thoracic region shows moderate degenerative disc change. Due to patient motion the study again is essentially nondiagnostic. The mid to upper thoracic region shows degenerative disc change throughout. No major compromise of the spinal canal is present. There is a subcutaneous fluid collection within the subcutaneous tissues extending from the level of T6 inferiorly to mL of minimal T9. This appears to have a maximum linear dimension of 8 cm with transaxial measurements within the subcutaneous fat of 8 x 2 cm. Within limitations of the artifact present, a major extension or significant extension to the spinal canal is appreciated. IMPRESSION: 1. Near nondiagnostic exam due to considerable metallic artifact. 2. Subcutaneous somewhat complex fluid pocket posterior to the thoracic spinal canal from T6 to approximately T9, although it may have more of an inferior extension which is not seen due to metallic artifact. 3. Diagnostic considerations include a subcutaneous hematoma with several small air bubbles most likely present on a postoperative basis. 4. No definite extension to the spinal canal although this is of questionable accuracy due to the severe metallic artifact present. LUMBAR SPINE W/O CONTRAST HISTORY: Pain evaluate for abscess TECHNIQUE: Multiplanar multisequence MRI of the lumbar spine was performed without the use of contrast. COMPARISON: CT abdomen and pelvis same date FINDINGS: For the purpose of the report the L5-S1 disc space will be located on axial image 26 of 33. Nondiagnostic exam due to extensive metallic artifact present. Soft tissue edematous change is noted posterior to the thoracolumbar spine. Appears to been near complete fusion of the thoracolumbar region. Transaxial images show no major compromise of the spinal canal. Evaluation of the low thoracic and upper lumbar region is essentially again nondiagnostic. IMPRESSION: 1. Essentially nondiagnostic exam due to the extensive metallic artifact throughout the low thoracic and lumbar spine. 2. Soft tissue edema posterior to the upper lumbar region and to a lesser extent lower lumbar region. 3. No evidence for focal collection or abscess within the mid to lower lumbar spine. 4. No major compromise of the lower lumbar spinal canal. 5. The study again is nondiagnostic in reference to the low thoracic and upper lumbar region due to the metallic artifact present. SINGLE VIEW CHEST CLINICAL HISTORY: Fever and chills. FINDINGS: An AP, portable, upright chest radiograph is compared to study dated 12/20/2015. The examination is degraded by portable technique and patient rotation. The heart is enlarged and there is atherosclerotic calcification of the thoracic aorta. The pulmonary vasculature is noncongested. There is no airspace consolidation or large pleural effusion. No pneumothorax is seen. The skeletal structures are osteopenic. The bony thorax is grossly intact. Fusion hardware projects over the thoracolumbar junction. Skin clips also project over the back. IMPRESSION: Cardiomegaly with no acute cardiopulmonary abnormality. ABD/PELVIS NO IV OR ORAL CONT CT DOSE: 1048.54 mGy.cm HISTORY: Pain abd distension; recent back surgery TECHNIQUE: Multiaxial CT images of the abdomen and pelvis were performed without contrast. A dose lowering technique was utilized adhering to the principles of ALARA. COMPARISON STUDY: 11/24/2013 FINDINGS: Hematoma with several contained air bubbles posterior to the low thoracic region. This measures 10 x 3 cm. It is posterior to interval placement of a jose stabilization procedure from the low thoracic through the upper lumbar region. There are small bilateral pleural effusions. There are findings of mild bibasilar atelectatic change. Liver spleen and pancreas are unremarkable. There is mild reactive colonic ileus. There are no obstructive changes. There is no intra-abdominal or intrapelvic free fluid. There is a Mckeon catheter within the bladder. There are pre-existing postoperative changes to the lumbar spine. IMPRESSION: 1. Interval development of a subcutaneous fluid pocket and/or hematoma posterior to the spine involving the low thoracic and upper lumbar region. 2. This appears to relate to interval placement of a jose stabilization procedure of the low thoracic through upper lumbar region. 3. Pre-existing laminectomy and fusion of the upper lumbar region to superior sacrum. 4. Mild reactive small bowel ileus with no true obstructive changes. 5. Small bilateral pleural effusions with bibasilar atelectatic change. Assessment & Plan (1) Hypovolemic shock (2) Acute blood loss anemia (3) S/P laminectomy (4) JORDAN (acute kidney injury) (5) Spinal abscess (6) Sepsis (7) Hypokalemia Reason Critically Ill: 67-year-old male with acute blood loss anemia, sepsis, hypovolemic shock, and JORDAN who underwent emergent T 10-11 laminectomy with I&D of lumbar abscess. Neuro - * CAM ICU: NEGATIVE * Bilateral Lower Extremity Numbness/Weakness in the setting of Spinal Abscess/ Hematoma s/p Laminectomy/I&D: * Continue neuro checks. * Dilaudid PRN pain. * Gabapentin * Appreciate Spiral Surgery Recommendations. * Depression/Anxiety: * Continue Zoloft/Wellbutrin * PRN Ativan Cardiac - * PMHx HTN: * Hold Rx 2/2 HYPOtension. * EKG shows SR w/ PVCs at 99bpm - unchanged. QTc 449ms * Initially hypotensive - responded to IVF/PRBCs. * Pressor support as needed. * Will check cardiac enzymes in the setting of acute blood loss anemia: * Will help gauge need for PRBCs/possible global ischemia. * Will add CPK in the setting of Daptomycin use. * Monitor on Tele. * AM EKGs/EKGs for pain. Respiratory - * h/o Asthma: * Continue Advair. * Will add PRN Xopenex/Atrovent. * Likely DARYL Dx: * Will monitor. * Consider adding CPAP if needed. * Supplemental O2 PRN. * Monitor continuous Pulse Oximetry. GI - * Prophylaxis: Protonix * NPO overnight. RENAL/LYTES - * JORDAN: * 2/2 ??Hypovolemic Shock vs. Obstructive Uropathy?? * Aggressive IVF prior to arrival. * Excessive thirst over last few days with minimal urine output. No sensation in abdomen for bladder pain/spasm. Using Narcotics w/ h/o BPH. * Mckeon Catheter to gravity * IVF: NSS+20mEq KCl@100mL/min * Hypokalemia: * IV replacement until no longer NPO. - * Mckeon Catheter - Strict I&Os * Continue Flomax as BP tolerates. ENDO - * h/o DM - now controlled w/ Diet and Weight Loss: * ISS/gtt PRN. * No h/o Thyroid Dz HEME - * Acute Blood Loss Anemia: * EBL 300 mL intraoperatively. * Initial H&H 7.6/22.9 * Will trend. * Received 2U PRBCs p/t arrival in ICU. * Will add 3rd Unit as H&H minimally improved - ??dilution+anemia vs. progressive bleed?? * Will assume end organ ischemia in the setting of JORDAN - will add cardiac enzymes/liver enzymes for further evaluation. * Will continue to replace as needed. * Leukemoid Reaction 2/2 hematoma vs. sepsis: * Continue to trend. ID - * Spinal Abscess s/p I&D: * Blood Cultures/Abscess Culture Pending. * Antibiotics: Daptomycin/Zosyn * Will check CPK for baseline while receiving Dapto 2/2 associated Rhabdo reactions - particularly in the setting of JORDAN. * Initial Lactate negative - will trend. * Will add ProCal LINES/IV ACCESS - * PIVs Intact. * A-Line in place per Anesthesia Placement. DVT PROPHYLAXIS - * Will hold on chemoprophylaxis at this point 2/2 recent hematoma/blood loss anemia/surgery. * SCDs in place. I have personally spent 45 minutes of critical care time in the direct management of this patient. This is a life/limb threatening event. This includes time spent evaluating patient, direct bedside care, chart review, placing orders, interpretation of diagnostic studies, discussion with consultants, patient, and family members, as well as other required patient management activities. This time is exclusive of all separately billable procedures, and teaching time and separate from and in addition to any other critical care service time. Thank you for this consultation allow us to be part of this patient's care. Please refer to my attending physician's documentation for any further recommendations. attending addendum, the case seen , evaluated agree with the above, in summary the pt with laminectomy, for hardware adjacent infection, started empirically on dapto and zosyn, post op day 0, will continue with abx for at least 2 weeks. neuro eval, DVT prophylaxis, appreciate ortho input. CCT 45 min. Problem Qualifiers (1) Sepsis: Sepsis type: sepsis due to unspecified organism Qualified Codes: A41.9 - Sepsis, unspecified organism
[2017-07-10] MEDS ORDERED: PIPERACILL/TAZOBAC IV 4.5 GM in DEXTROSE 5% 100ML IV ONE (22:00)
[2017-07-10] MEDS ORDERED: SODIUM CHLOR 0.45% + 20MEQ KCL 1,000 ML IV SCH (22:00)
[2017-07-10] MEDS: FLUTICASONE/SALMETEROL 250/50 (ADVAIR) 14 PUFF/1 INHALER INH SCH (22:25)
[2017-07-11] VITALS (57 sets, daily range): BP systolic 71–177; BP diastolic 40–113; PULSE 48–173; TEMP 36.6–37.7; O2SAT 91–97
[2017-07-11] MEDS: GABAPENTIN 300 MG CAP PO SCH ×2 (00:03→10:44)
[2017-07-11] MEDS: POTASSIUM CHLR 10 MEQ / WTR 10 MEQ in PREMIXED WATER 100 ML IV SCH ×3 (01:06→03:30)
[2017-07-11] MEDS ORDERED: PIPERACILL/TAZOBAC IV 4.5 GM in DEXTROSE 5% 100ML IV SCH (02:00)
[2017-07-11] MEDS ORDERED: INFLUENZA VACCINE HIGH DOSE 65+ 0.5 ML SYR IM. ONE (02:15)
[2017-07-11] MEDS ORDERED: PNEUMOCOCCAL ADMINISTRATION CHARGE ONE (02:15)
[2017-07-11] MEDS ORDERED: PNEUMOCOCCAL POLYSACCHARIDES 25 MCG/0.5 ML VIAL/SYR IM. ONE (02:15)
[2017-07-11] MEDS ORDERED: INFLUENZA ADMINISTRATION CHARGE ONE (02:15)
[2017-07-11 02:25] LABS: HEMATOCRIT 25.6 % (42-52); HEMOGLOBIN 8.5 g/dL (14.0-18.0); MEAN CELL VOLUME 83.9 fL (80-100); MEAN CORPUSCULAR HEMOGLOBIN 27.9 pg (25-34); MEAN CORPUSCULAR HGB CONC 33.2 g/dl (32-36); MEAN PLATELET VOLUME 10.2 fL (7.4-10.4); PLATELET COUNT 190 K/uL (130-400); RED CELL DISTRIBUTION WIDTH CV 14.1 % (11.5-14.5); RED CELL DISTRIBUTION WIDTH SD 43.6 fL (36.4-46.3); WHITE BLOOD COUNT 24.94 K/uL (4.8-10.8)
[2017-07-11 03:06] LABS: ALBUMIN 1.4 gm/dl (3.4-5.0); CALCIUM 7.4 mg/dl (8.5-10.1); CREATININE 1.8 mg/dl (0.60-1.40); PHOSPHORUS 3.1 mg/dl (2.5-4.9); POTASSIUM 3.5 mmol/L (3.5-5.1); TOTAL PROTEIN 4.4 gm/dl (6.4-8.2)
[2017-07-11 03:20] LABS: BASO ABS # 0.01 K/uL (0-0.2); EOS ABS # 0.01 K/uL (0-0.5); IG# 0.13 K/uL (0.00-0.02); LYMPH ABS # 0.49 K/uL (1.2-3.4); MONO ABS # 0.76 K/uL (0.11-0.59); NEUT % 94.5 %; NEUT ABS # 23.54 K/uL (1.4-6.5)
[2017-07-11] MEDS: HYDROmorphone INJ 0.5 MG/0.5 ML SYR IV PRN ×3 (07:55→13:57)
--- NOTE | 2017-07-11 08:14 | OPERATIVE REPORT ---
DATE OF OPERATION: 07/10/2017 PREOPERATIVE DIAGNOSES: 1. Epidural abscess versus hematoma. 2. Previous thoracolumbar fusion instrumentation and T12-L1 decompression. 3. Lower extremity paraparesis. POSTOPERATIVE DIAGNOSES: Same. PROCEDURES: 1. Irrigation and debridement of thoracolumbar spine abscess. 2. T10 and T11 laminectomy. 3. Crosslink hardware removal, T11-12. SURGEON: Jung Torres MD. FIRST AID DIRECTOR: OR staff. ANESTHESIA: General endotracheal anesthesia. COMPLICATIONS: None. ESTIMATED BLOOD LOSS: 350 mL. INDICATIONS: The patient is a 67-year-old male with prior lumbar fusion from L1-S1 who underwent an elective extension of the fusion to T10 with instrumentation and T12-L1 decompression. He did well initially postoperatively, but 2 days prior to presentation noted an increasing numbness that began extending to lower extremities. He became confused and reportedly did note ambulatory difficulties 24 hours prior to presentation to the ED. Symptoms progressed and after noting a low-grade fever, presented to ED with left lower extremity paraparesis. He had no active motor function, bilateral LE's & decreased sensation to light touch from the umbilicus distally. He was somewhat confused and lethargic. Workup revealed markedly elevated white count, hypertension and purulence draining from the incision. MRI was limited in quality of the thoracic and lumbar spine due to metallic artifact from hardware. After discussion with her medical physicians, anesthesia and patient's family, he was brought emergently to the OR for procedures as above. DESCRIPTION OF THE PROCEDURE: After identification of patient and operative level, he was brought to the OR where he underwent induction of general anesthesia. He was then positioned prone on the David OR table with all bony prominences well padded. Care was taken to avoid pressure on the periorbital area. Lumbosacral area was sterilely prepped and draped in usual fashion. Antibiotics were administered. Time-out was performed. Level was confirmed and a thoracolumbar incision was reopened and gross purulent material was identified. There was also bloody discharge. There was eliezer purulence at the subcutaneous tissue and jose abscess. There appeared to be communication of deep and the distal fascia just above the decompression with purulent material throughout. Cultures were taken. All suture material was removed. The fascia was released and consolidated organized hematoma was noted in the laminectomy bed at T12-L1. I removed all of this material after placement of Gelpi's so that the dural tube could be well visualized. I then passed a [place] elevator to the remaining T12 lamina superiorly and pus was noted, released purulent drainage to be released from the lamina. I then completed T12 laminectomy, continued to ascend with the decompression using Kerrisons as long as I could visualize purulent material deep to lamina and ligamentum flavum. I continued to decompress widely until I ran into the crosslink which was removed. After removal of T11, no further purulent material was noted. I then moved along the flavum and inferior portion of T10, confirmed that there were no further visualized purulent material. I removed the remaining bone of L1 distally, probed distal to this and did not find any more purulent material. I then irrigated with bacitracin solution and pulse lavage care taken to avoid applying pulse lavage to the dural tube. I then irrigated regular irrigation solution. I then applied FloSeal and bone wax for hemostasis. I then used fluoroscopy to confirm extent of decompression up to the T10 pedicle screws. I then placed a PAT drain deep after confirmation of acceptable hemostasis and closed the fascia with Prolene sutures and then closed skin with Vicryl and eve. All sponge and needle counts were correct at the end of the case. The patient remained hemodynamically stable throughout the case. I attest to the content of the Intraoperative Record and any orders documented therein. Any exceptions are noted below. ARI
[2017-07-11 08:30] LABS: HEMATOCRIT 28.6 % (42-52); HEMOGLOBIN 9.8 g/dL (14.0-18.0)
[2017-07-11] MEDS ORDERED: TAMSULOSIN HCL 0.4 MG CAP PO SCH (09:00)
[2017-07-11] MEDS ORDERED: PANTOprazole INJ 40 MG in SYRINGE 0 ML IV SCH (09:00)
[2017-07-11] MEDS ORDERED: BuPROPion XL 300 MG TABCR PO SCH (09:00)
[2017-07-11] MEDS ORDERED: SERTRALINE HCL 50 MG TAB PO SCH (09:00)
--- NOTE | 2017-07-11 09:59 | Hospitalist Progress Note ---
Hospitalist Progress Note Date of Service Jul 11, 2017. Subjective Pt evaluation today including: conversation w/ patient, conversation w/ family , physical exam, chart review, lab review, review of studies, conversation w/ family consultant PO Intake: Fair Voiding: haynes catheter in place The patient was seen and examined this morning. Pt and are present at bedside. The patient was seen in conjunction with Dr. Pelletier and Dr. Ren. The patient reports having intermittent pain throughout his back up into the shoulders, into his neck. He denies sensation of pain or light touch into bilateral lower extremities. The patient complains of an extremely dry mouth, and is requesting oral intake. He denies any difficulty with swallowing function or speech. He reports having sensation to light touch in the abdomen above the level of the umbilicus. Currently planning to begin a course of steroids, continue on broad-spectrum antibiotics, and supportive care. Additional Comments: Constitutional: No fever, sweats or chills Eyes: No diplopia, no worsening or blurred vision ENT: normal hearing, no trouble swallowing Respiratory: No cough, sputum, dyspnea at rest, patient denies shortness of breath Cardiovascular: No chest pain, tightness or palpitations Abdomen: No pain, + absent sensation to light touch below the umbilicus. No nausea, vomiting, diarrhea or constipation. Pt is unsure if he is passing gas. Musculoskeletal: No joint pain, calf pain, swelling Neurologic: sensation diminished below the level of the umbilicus and into BLE. Inability to move BLE. Psychiatric: No anxiety or depression Skin: No rash or itch Objective Vital Signs Date Time Temp Pulse Resp B/P (MAP) Pulse Ox O2 Delivery O2 Flow Rate FiO2 07/11/17 06:31 105 27 177/63 (101) 94 07/11/17 06:01 105 25 127/59 (81) 93 07/11/17 06:00 112 25 128/61 (83) 93 07/11/17 05:05 36.6 104 24 120/71 96 2.0 07/11/17 04:00 Nasal Cannula 2.0 07/11/17 03:58 36.7 103 24 139/63 97 2.0 07/11/17 03:28 36.7 103 22 131/62 95 2.0 07/11/17 03:15 36.9 101 21 123/89 95 2.0 07/11/17 03:10 36.9 103 23 135/66 96 2.0 07/11/17 00:00 Nasal Cannula 2.0 07/11/17 00:00 36.7 99 27 143/70 94 07/10/17 23:30 37.1 102 21 134/68 97 07/10/17 22:43 36.9 97 22 127/67 97 2.0 07/10/17 22:27 36.9 96 23 127/62 97 2.0 07/10/17 22:18 37.4 96 22 124/61 96 2.0 07/10/17 21:20 Room Air 2.0 07/10/17 21:10 37.0 97 18 96 Oxymask 3 103/51 07/10/17 21:00 96 18 98 Oxymask 5 91/47 07/10/17 20:50 99 18 106/51 100 Oxymask 5 93/47 07/10/17 20:41 37.3 99 20 106/51 100 Oxymask 10 07/10/17 18:43 37.0 105 20 125/71 96 07/10/17 18:12 37.0 101 20 113/72 95 Nasal Cannula 2.0 07/10/17 17:55 37.0 102 20 113/72 96 2.0 07/10/17 17:40 37.4 103 20 112/60 96 2.0 07/10/17 17:25 36.9 103 20 107/73 96 2.0 07/10/17 17:23 36.9 103 20 107/73 96 2.0 07/10/17 17:09 36.8 102 20 103/64 95 Nasal Cannula 2.0 07/10/17 16:27 108 07/10/17 16:25 108 20 107/59 92 Room Air 07/10/17 14:00 100 20 97/50 93 Room Air 07/10/17 13:21 99 107/65 93 Room Air 07/10/17 12:05 102 07/10/17 11:39 37.1 101 26 103/57 94 Room Air Physical Exam Notes: General: awake, alert, no apparent distress, occasionally has fine tremor in upper body Head: Normocephalic, atraumatic ENT: PERRL, EOMI, no pharyngeal exudate, MM dry Chest: Clear to auscultation, on room air, no adventitious breath sounds Cardiac: RRR with occasional PVC, no murmur, no JVD, normal peripheral pulses, good capillary refill Abdominal: NABS x 4 quadrants, soft, nontender to palpation. No sensation below the level of the umbilicus. Extremities: Normal inspection, minimal nonpitting BLE peripheral edema, no erythema, calfs nontender to palpation Psych: Normal mood and affect Neuro: AAO x 3, Flaccid paralysis of BLE with 0/5 strength. Patellar reflexes are absent. Babinski with outward flaring toes. Upper extremities: Strength is 3/5 in hand media senior recruiter on left and 2/5 on right. Pt is able to shrug shoulders and move his head and neck with full active ROM. He has sensation to light touch in upper extremities. Speech is clear. Laboratory Results Last 24 Hours Test 07/10/17 11:40 07/10/17 12:09 07/10/17 12:40 07/10/17 14:00 White Blood Count 30.54 K/uL Red Blood Count 2.70 M/uL Hemoglobin 7.6 g/dL Hematocrit 22.9 % Mean Corpuscular Volume 84.8 fL Mean Corpuscular Hemoglobin 28.1 pg Mean Corpuscular Hemoglobin Concent 33.2 g/dl Platelet Count 256 K/uL Mean Platelet Volume 10.3 fL Neutrophils (%) (Auto) 92.8 % Lymphocytes (%) (Auto) 2.3 % Monocytes (%) (Auto) 4.4 % Eosinophils (%) (Auto) 0.0 % Basophils (%) (Auto) 0.0 % Neutrophils # (Auto) 28.36 K/uL Lymphocytes # (Auto) 0.69 K/uL Monocytes # (Auto) 1.34 K/uL Eosinophils # (Auto) 0.00 K/uL Basophils # (Auto) 0.01 K/uL RDW Standard Deviation 43.8 fL RDW Coefficient of Variation 14.0 % Immature Granulocyte % (Auto) 0.5 % Immature Granulocyte # (Auto) 0.14 K/uL Large Platelets 1+ Erythrocyte Sedimentation Rate 63 mm/hr Sodium Level 133 mmol/L Potassium Level 3.4 mmol/L Chloride Level 99 mmol/L Carbon Dioxide Level 24 mmol/L Anion Gap 10.0 mmol/L Blood Urea Nitrogen 53 mg/dl Creatinine 2.42 mg/dl Est Creatinine Clear Calc Drug Dose 33.2 ml/min Estimated GFR () 31.1 Estimated GFR (Non- 26.8 BUN/Creatinine Ratio 21.9 Random Glucose 72 mg/dl Calcium Level 8.7 mg/dl C-Reactive Protein 37.30 mg/dl Lipase 76 U/L Bedside Glucose 98 mg/dl Bedside Lactic Acid Venous 0.94 mmol/L Urine Color DK YELLOW Urine Appearance CLOUDY Urine pH 5.0 Urine Specific Fouke 1.023 Urine Protein 1+ Urine Glucose (UA) NEG Urine Ketones TRACE Urine Occult Blood 2+ Urine Nitrite NEG Urine Bilirubin NEG Urine Urobilinogen NEG Urine Leukocyte Esterase NEG Urine WBC (Auto) 1-5 /hpf Urine RBC (Auto) 0-4 /hpf Urine Hyaline Casts (Auto) 1-5 /lpf Urine Epithelial Cells (Auto) >30 /lpf Urine Bacteria (Auto) NEG Urine Renal Epithelial Cells 0-5 /lpf Urine Crystals TALC Urine Pathogenic Casts 1-5 GRANULAR CASTS /lpf Urine Yeast (Auto) Test 07/10/17 17:58 07/10/17 20:49 07/11/17 00:12 07/11/17 02:08 Lactic Acid Level 0.9 mmol/L 0.8 mmol/L Hemoglobin 8.1 g/dL 8.5 g/dL Hematocrit 23.9 % 25.6 % Sodium Level 138 mmol/L 138 mmol/L Potassium Level 3.0 mmol/L 3.5 mmol/L Chloride Level 108 mmol/L 108 mmol/L Carbon Dioxide Level 22 mmol/L 21 mmol/L Anion Gap 8.0 mmol/L 9.0 mmol/L Blood Urea Nitrogen 52 mg/dl 50 mg/dl Creatinine 2.09 mg/dl 1.80 mg/dl Est Creatinine Clear Calc Drug Dose 38.5 ml/min 45.9 ml/min Estimated GFR () 37.1 44.5 Estimated GFR (Non- 32.0 38.4 BUN/Creatinine Ratio 25.0 28.0 Random Glucose 93 mg/dl 91 mg/dl Calcium Level 7.5 mg/dl 7.4 mg/dl Bedside Glucose 86 mg/dl White Blood Count 24.94 K/uL Red Blood Count 3.05 M/uL Mean Corpuscular Volume 83.9 fL Mean Corpuscular Hemoglobin 27.9 pg Mean Corpuscular Hemoglobin Concent 33.2 g/dl Platelet Count 190 K/uL Mean Platelet Volume 10.2 fL Neutrophils (%) (Auto) 94.5 % Lymphocytes (%) (Auto) 2.0 % Monocytes (%) (Auto) 3.0 % Eosinophils (%) (Auto) 0.0 % Basophils (%) (Auto) 0.0 % Neutrophils # (Auto) 23.54 K/uL Lymphocytes # (Auto) 0.49 K/uL Monocytes # (Auto) 0.76 K/uL Eosinophils # (Auto) 0.01 K/uL Basophils # (Auto) 0.01 K/uL RDW Standard Deviation 43.6 fL RDW Coefficient of Variation 14.1 % Immature Granulocyte % (Auto) 0.5 % Immature Granulocyte # (Auto) 0.13 K/uL Toxic Vacuolation 2+ Ovalocytes 1+ Echinocytes 1+ Phosphorus Level 3.1 mg/dl Magnesium Level 2.0 mg/dl Total Bilirubin 0.7 mg/dl Direct Bilirubin 0.3 mg/dl Aspartate Amino Transf (AST/SGOT) 48 U/L Alanine Aminotransferase (ALT/SGPT) 18 U/L Alkaline Phosphatase 74 U/L Total Creatine Kinase 1133 U/L Troponin I 0.066 ng/ml Total Protein 4.4 gm/dl Albumin 1.4 gm/dl Procalcitonin 6.19 ng/ml Test 07/11/17 08:04 Hemoglobin 9.8 g/dL Hematocrit 28.6 % Total Creatine Kinase 894 U/L Troponin I 0.127 ng/ml Assessment and Plan This is a 67 yo M who underwent previous L1-S1 lumbar fusion and required revision of the lumbar fusion at T10 and T12-L1 decompression which was done at [facility] 2 week prior to this admission. The patient had developed increased drainage and bleeding from the surgical site, spinal drain was left intact and was removed by home health nursing. On Sunday evening, pt developed increased numbess that descended into the legs bilaterally, low grade fevers, rigors and presented to the ER. At the time of admission he had been nonambulatory x 24 hours. The patient was taken for emergent O2 intervention due to severe sepsis. Abscess was I&Ds intraoperatively. Bilateral lower extremity paraplegia/areflexia/flaccid paralysis Sepsis - presumably due to post-op spinal infection Spinal shock - pt assigned to the ICU - WBC >30,000 at time of admission is today 24K. Acute anemia of 7.6 and 22.9 on admit now s/p 3 U PRBCs and maintained in the 9s. - CT as well as MRI of the thoracic and lumbar spines demonstrated possible hematoma versus abscess collection. 07/10: Pt taken to the OR by Dr. Pelletier for emergent laminectomy with hardware removal and incision and drainage - Cont Dapto/Zosyn - appreciate ID recs - Aggressive IVF provided - may need pressors if hypotension recurs, he is currently off the epinephrine gtt. - neurology consulted: planning on initiating steroids at this time and ICU. - Sensory level is above where his lumbar abscesses, possible that this is spinal shock - Possible that may re-image with MRI within next 24 hours. Initial imaging studies were very poor due to rigors associated with sepsis and pt inability to lie flat. JORDAN on CKD - likely due to sepsis and volume depletion - IVF provided - trend BMP - Cr slightly improved to 1.8 this morning from 2.4 at time of admission - UA with granular casts, likely ATN with acute volume depletion. Elevated Troponin - 0.066 -->0.127 - Will trend x 1 more set, at this time unlikely ACS - Likely secondary to volume - demand ischemia with acute anemia as described below. Anemia - Hgb improved to 9.8 s/p 3 U PRBCs, first 2 U were minimally effective. Continue to trend CBC with am labs, may need more frequent checks if any changes with mentation. - secondary to acute blood loss HTN - Meds held due to hypotension BPH - catheter to be placed - cont Flomax h/o Asthma Possible DARYL - cont advair , prn Xopenex/Atrovent. - continuous pulse O2, o2 protocol, consider CPAP DVT ppx: Teds, scds, no chemical anticoagulation CODE STATUS: FULL CODE Disposition: Consider transfer to tertiary care center if any further neurological compromise. Discharge unknown currently. Time spent including chart review, discussion with patient and family, discussion with consultants, medical decision making was 95 min.
--- NOTE | 2017-07-11 10:15 | Neurology Consultation ---
Neurology Consultation Date of Consultation: Jul 11, 2017. Attending Physician: Lucas Faustin D.O. Primary Care Physician: William Hudson D.O. Reason for Consultation: Consult for 4 limb weakness History of Present Illness Source: patient, hospital records This is a 67-year-old male who presents for worsening lower extremity weakness and fevers. He is recent T12 to L1 fusion. Patient was home for a few days and reportedly doing well. Home nursing had pulled drain. After which she seemed to start to have fevers. He noticed increased numbness going up his legs and body on Sunday. Family reports that he started to have altered mental status on Sunday along with fevers and chills and aches. Patient presented to the emergency room yesterday for further evaluation. MRI of L spine noted a fluid collection concerning for possible subcutaneous abscess in the thoracic region. Patient was treated for sepsis and acute renal failure. WBCs were noted to be elevated. Patient went to surgery early this morning for abscess debridement. operative note noted organized hematoma around T12-L1 and purulent discharge up to T11. Patient reports all over body pain, aches, and zaps. He reports a headache that seems similar to his past headaches but a little bit larger than normal. Reports stiff neck. Patient does have a history of neck pain and cervical fusion. He does report some zaps her sharp pains in his arms but is unclear whether these are true cervical radiculopathy symptoms versus a symptoms of his current sepsis. Patient feels weak all over in addition to his severe lower tremor weakness. At home family also reported that he seemed to not be going to the bathroom despite feeling thirsty and wanting to drink fluids. Patient denies any trouble swallowing or changes with vision. Past Medical/Surgical History Medical Problems: (1) Acute blood loss anemia Status: Acute (2) JORDAN (acute kidney injury) Status: Acute (3) Hypokalemia Status: Acute (4) Hypovolemic shock Status: Acute (5) Sepsis Status: Acute (6) Spinal abscess Status: Acute Surgical Problems: (1) S/P laminectomy Status: Acute Past mental history significant for hypertension, dyslipidemia, and asthma Family History Patient denies any significant family history Social History Patient works as a dentist. Normal independence activities of daily living although more recently has been using the assistance of a walker. No tobacco use. No alcohol use. No illegal drug use. Smoking Status: Never smoker Smokeless Tobacco Use: No Alcohol Use: none Drug Use: none Marital Status: Housing Status: lives with significant other Occupation Status: employed Allergies Coded Allergies: No Known Drug Allergy (Verified Allergy, Unknown, ., 07/10/17) POLLEN (Verified Allergy, Unknown, HAY FEVER, 05/22/16) NSAIDs (Verified Adverse Reaction, Unknown, doesn't take had gastric bypass, 07/10/17) Current Inpatient Medications Current Inpatient Medications Medications (Trade) Dose Ordered Sig/Fabricio Route Start Time Stop Time Status Last Admin Dose Admin Acetaminophen (Tylenol Tab) 650 mg Q4H PRN PO 07/10/17 17:30 08/09/17 17:29 Lorazepam (Ativan Inj) 0.5 mg Q4H PRN IV 07/10/17 17:30 08/09/17 17:29 Ondansetron HCl (Zofran Inj) 4 mg Q6H PRN IV 07/10/17 17:30 08/09/17 17:29 Pantoprazole Sodium 40 mg/ Syringe 10 ml @ 5 mls/min DAILY IV 07/11/17 09:00 07/14/17 09:01 07/11/17 07:55 5 MLS/MIN Miscellaneous Information (Consult) 1 ea UD PRN N/A 07/10/17 17:45 08/09/17 17:44 Bupropion HCl (Wellbutrin-Xl Tab) 300 mg QAM PO 07/11/17 09:00 08/10/17 08:59 Salmeterol Xinafoate/ Fluticasone (Advair Diskus 250/50 Inh) 1 puff BID INH 07/10/17 21:00 08/09/17 20:59 07/10/17 22:25 1 PUFF Gabapentin (Neurontin Cap) 300 mg HS PO 07/10/17 21:00 08/09/17 20:59 Sertraline HCl (Zoloft Tab) 50 mg QAM PO 07/11/17 09:00 08/10/17 08:59 Tamsulosin HCl (Flomax Cap) 0.4 mg QAM PO 07/11/17 09:00 08/10/17 08:59 Piperacillin Sod/ Tazobactam Sod 4.5 gm/Dextrose 120 ml @ 30 mls/hr Q8H IV 07/11/17 02:00 08/22/17 01:59 07/11/17 02:27 30 MLS/HR Daptomycin 600 mg/ Syringe 12 ml @ 6 mls/min DAILY@1400 IV 07/11/17 14:00 07/23/17 14:01 Miscellaneous Information (Icu Protocol For Hyperglycemia) 1 ea PRN PRN N/A 07/10/17 22:15 07/12/17 22:14 Hydromorphone HCl (Dilaudid Inj) 0.5 mg Q2HWA PRN IV 07/11/17 03:00 07/25/17 02:59 07/11/17 07:55 0.5 MG Miscellaneous Information (Pharmacy Consult) 1 ea NOW STAT N/A 07/11/17 08:48 07/11/17 08:49 UNV Sodium Chloride 1,000 ml @ 125 mls/hr Q8H IV 07/11/17 09:00 08/10/17 08:59 Review of Systems Complete review of systems otherwise negative except for the above-noted history of present illness Physical Exam Vital Signs (Past 24 Hrs): Date Time Temp Pulse Resp B/P (MAP) Pulse Ox O2 Delivery O2 Flow Rate FiO2 07/11/17 06:31 105 27 177/63 (101) 94 07/11/17 06:01 105 25 127/59 (81) 93 07/11/17 06:00 112 25 128/61 (83) 93 07/11/17 05:05 36.6 104 24 120/71 96 2.0 07/11/17 04:00 Nasal Cannula 2.0 07/11/17 03:58 36.7 103 24 139/63 97 2.0 07/11/17 03:28 36.7 103 22 131/62 95 2.0 07/11/17 03:15 36.9 101 21 123/89 95 2.0 07/11/17 03:10 36.9 103 23 135/66 96 2.0 07/11/17 00:00 Nasal Cannula 2.0 07/11/17 00:00 36.7 99 27 143/70 94 07/10/17 23:30 37.1 102 21 134/68 97 07/10/17 22:43 36.9 97 22 127/67 97 2.0 07/10/17 22:27 36.9 96 23 127/62 97 2.0 07/10/17 22:18 37.4 96 22 124/61 96 2.0 07/10/17 21:20 Room Air 2.0 07/10/17 21:10 37.0 97 18 96 Oxymask 3 103/51 07/10/17 21:00 96 18 98 Oxymask 5 91/47 07/10/17 20:50 99 18 106/51 100 Oxymask 5 93/47 07/10/17 20:41 37.3 99 20 106/51 100 Oxymask 10 07/10/17 18:43 37.0 105 20 125/71 96 07/10/17 18:12 37.0 101 20 113/72 95 Nasal Cannula 2.0 07/10/17 17:55 37.0 102 20 113/72 96 2.0 07/10/17 17:40 37.4 103 20 112/60 96 2.0 07/10/17 17:25 36.9 103 20 107/73 96 2.0 07/10/17 17:23 36.9 103 20 107/73 96 2.0 07/10/17 17:09 36.8 102 20 103/64 95 Nasal Cannula 2.0 07/10/17 16:27 108 07/10/17 16:25 108 20 107/59 92 Room Air 07/10/17 14:00 100 20 97/50 93 Room Air 07/10/17 13:21 99 107/65 93 Room Air 07/10/17 12:05 102 07/10/17 11:39 37.1 101 26 103/57 94 Room Air Gen.: Patient is alert and lying in bed with a diffuse shivering and Riggers HEENT: Normocephalic /atraumatic, no scleral icterus Heart: Regular rate and rhythm Extremities: No gross deformities or rashes noted Neurological examination: Mental status: Patient is alert and oriented x3. Attention and concentration normal for the situation. Good fund of knowledge. Remote and recent memory intact. Speech is fluent without any dysarthria or aphasia noted Cranial nerve: Funduscopic examination was unremarkable. No papilledema. Pupils equally round and reactive to light. Extraocular muscles intact without nystagmus. No facial asymmetry noted. Facial sensation intact. Tongue is midline. Good palatal elevation. Good shoulder shrug bilaterally. Hearing grossly intact to voice. Coordination: Patient had good finger to nose without dysmetria Sensation: Patient was unable to feel light touch or sharp in the bilateral lower extremities. Maybe had some vague sense towards the proximal lower extremities. Appeared to have a sensory level at T6 on the right and T4 on the left of his chest. Strength: 4/5 and bilateral upper extremities both proximally and distally. 0/5 bilateral lower extremities. Deep tendon reflexes: +1 in bilateral biceps brachioradialis. +0 in bilateral patellar. Toes were equivocal to plantar stimulation but did seem to have some withdrawal to plantar stimulation on the left. Gait unable to be tested due to paraparesis Laboratory Results Past 24 Hours: 07/11/17 02:08 Red Blood Count 3.05, Mean Corpuscular Volume 83.9, Mean Corpuscular Hemoglobin 27.9, Mean Corpuscular Hemoglobin Concent 33.2, Mean Platelet Volume 10.2, Neutrophils (%) (Auto) 94.5, Lymphocytes (%) (Auto) 2.0, Monocytes (%) (Auto) 3.0, Eosinophils (%) (Auto) 0.0, Basophils (%) (Auto) 0.0, Neutrophils # (Auto) 23.54, Lymphocytes # (Auto) 0.49, Monocytes # (Auto) 0.76, Eosinophils # (Auto) 0.01, Basophils # (Auto) 0.01 07/11/17 08:04 07/11/17 02:08 Test 07/10/17 11:40 07/10/17 12:40 07/10/17 14:00 07/11/17 00:12 Large Platelets 1+ Erythrocyte Sedimentation Rate 63 mm/hr (0-14) C-Reactive Protein 37.30 mg/dl (0-0.29) Lipase 76 U/L (73-393) Bedside Lactic Acid Venous 0.94 mmol/L (0.90-1.70) Urine Color DK YELLOW Urine Appearance CLOUDY (CLEAR) Urine pH 5.0 (4.5-7.5) Urine Specific [place] 1.023 (1.000-1.030) Urine Protein 1+ (NEG) Urine Glucose (UA) NEG (NEG) Urine Ketones TRACE (NEG) Urine Occult Blood 2+ (NEG) Urine Nitrite NEG (NEG) Urine Bilirubin NEG (NEG) Urine Urobilinogen NEG (NEG) Urine Leukocyte Esterase NEG (NEG) Urine WBC (Auto) 1-5 /hpf (0-5) Urine RBC (Auto) 0-4 /hpf (0-4) Urine Hyaline Casts (Auto) 1-5 /lpf (0-5) Urine Epithelial Cells (Auto) >30 /lpf (0-5) Urine Bacteria (Auto) NEG (NEG) Urine Renal Epithelial Cells 0-5 /lpf (0-5) Urine Crystals TALC (NONE PRSENT) Urine Pathogenic Casts 1-5 GRANULAR CASTS /lpf (0) Urine Yeast (Auto) (NONE PRSENT) Bedside Glucose 86 mg/dl (70-99) Test 07/11/17 02:08 07/11/17 08:04 White Blood Count 24.94 K/uL (4.8-10.8) Red Blood Count 3.05 M/uL (4.7-6.1) Hemoglobin 8.5 g/dL (14.0-18.0) Hematocrit 25.6 % (42-52) Mean Corpuscular Volume 83.9 fL (80-100) Mean Corpuscular Hemoglobin 27.9 pg (25-34) Mean Corpuscular Hemoglobin Concent 33.2 g/dl (32-36) Platelet Count 190 K/uL (130-400) Mean Platelet Volume 10.2 fL (7.4-10.4) Neutrophils (%) (Auto) 94.5 % Lymphocytes (%) (Auto) 2.0 % Monocytes (%) (Auto) 3.0 % Eosinophils (%) (Auto) 0.0 % Basophils (%) (Auto) 0.0 % Neutrophils # (Auto) 23.54 K/uL (1.4-6.5) Lymphocytes # (Auto) 0.49 K/uL (1.2-3.4) Monocytes # (Auto) 0.76 K/uL (0.11-0.59) Eosinophils # (Auto) 0.01 K/uL (0-0.5) Basophils # (Auto) 0.01 K/uL (0-0.2) RDW Standard Deviation 43.6 fL (36.4-46.3) RDW Coefficient of Variation 14.1 % (11.5-14.5) Immature Granulocyte % (Auto) 0.5 % Immature Granulocyte # (Auto) 0.13 K/uL (0.00-0.02) Toxic Vacuolation 2+ Ovalocytes 1+ Echinocytes 1+ Anion Gap 9.0 mmol/L (3-11) Est Creatinine Clear Calc Drug Dose 45.9 ml/min Estimated GFR () 44.5 Estimated GFR (Non- 38.4 BUN/Creatinine Ratio 28.0 (10-20) Lactic Acid Level 0.8 mmol/L (0.4-2.0) Calcium Level 7.4 mg/dl (8.5-10.1) Phosphorus Level 3.1 mg/dl (2.5-4.9) Magnesium Level 2.0 mg/dl (1.8-2.4) Total Bilirubin 0.7 mg/dl (0.2-1) Direct Bilirubin 0.3 mg/dl (0-0.2) Aspartate Amino Transf (AST/SGOT) 48 U/L (15-37) Alanine Aminotransferase (ALT/SGPT) 18 U/L (12-78) Alkaline Phosphatase 74 U/L (45-117) Total Protein 4.4 gm/dl (6.4-8.2) Albumin 1.4 gm/dl (3.4-5.0) Procalcitonin 6.19 ng/ml (0-0.5) Total Creatine Kinase 894 U/L (39-308) Troponin I 0.127 ng/ml (0-0.045) Date/Time Source Procedure Growth Status 07/10/17 22:00 Nasal MRSA DNA Surveillance Screen - Final Specimen Negative for MRSA by DNA Probe Complete Impression This is a 67-year-old male with progressive sensory deficits and paraplegia of the lower extremities since Sunday/Sunday. In addition has been having symptoms of fevers and chills consistent with found lumbar abscess and sepsis. Considering that his sensory level is above where his lumbar abscesses, may indicate a component of spinal shock. Alternative explanation would be non- visualized abscess higher up in the thoracic spine. Plan Continue with antibiotics for treatment of sepsis and lumbar abscess. I do not have a strong opinion for low dose versus high-dose pulsed steroids in this situation. I agree with physical therapy We'll see how patient does with the above treatment. If he continues to worsen or does not improve over the next day or so, could consider trying to repeat his thoracic spine to see if we image any other fluid collections concerning for abscess. I do not think the patient has any cervical lesion causing his weakness at this time. Thank you for allowing me to participate in this patient's care. If there is any questions or concerns, feel free to call/page me.
--- NOTE | 2017-07-11 10:21 | ORTHOPEDIC CONSULTATION ---
DATE OF CONSULTATION: 07/11/2017 HISTORY OF PRESENT ILLNESS: This patient was seen on 07/10/2017 in the ED after admission for confusion, rigors and paralysis. He is a 67-year-old male well known to myself having undergone previous L1-S1 lumbar fusion, who developed adjacent level disease and has required revision of his lumbar surgery with extension of fusion at T10 and T12-L1 decompression. This was done at an outside institution 2 weeks prior. He had significant sustained drain output. The drain was maintained and after removal, there was concern for some bleeding. He states that he noticed bleeding at the drain site. Following this, he developed increasing numbness that ascended in the legs. They did not seek evaluation initially. On the night prior to admission, he was unable to support himself on his legs and became confused and lethargic. His called for EMS transport and he was brought to the hospital. At the time of presentation, he had a flaccid paralysis in the lower extremities with mid abdominal sensory level. He has been nonambulatory for 24 hours. The patient was afebrile on admission, but was confused. reported low-grade fevers at home prior to admission to the ED. He was seen by medicine and anesthesia and in the ED, it was decided based upon hypertension, neurologic deficit and imaging showing a subcutaneous abscess, he should be brought to the OR emergently. PAST MEDICAL HISTORY: Diabetes, hypertension, depression, history of gastric bypass, history of posterior cervical fusion, history of lumbar fusion, hypertension, and asthma. ALLERGIES: NSAIDs. SOCIAL HISTORY: The patient is a dentist locally, works part-time. MEDICATIONS: List as per the EMR. REVIEW OF SYSTEMS: Per HPI. PHYSICAL EXAMINATION: GENERAL: At the time of my evaluation in the ED, the patient was confused, lethargic. He could answer some questions, but was somewhat somnolent. He was tachycardic and hypertensive. At the time of my evaluation, I inspected the prior thoracolumbar incision. There is eliezer purulent drainage from the incision. There is a large fluctuant area and subcutaneous tissue. HEENT: The patient is slow to respond with speech. His trachea is midline. No JVD. LUNGS: The patient had symmetric chest excursion without retractions. CARDIAC: Tachycardic ABDOMEN: Mildly distended, soft and no significant point tenderness, no guarding. EXTREMITIES: Revealed no pitting edema, nontender range of motion, no active range of motion. Passive range of motion-Nontender. NEUROLOGIC: The patient had approximately T6-T8 sensory level to light touch with no sensation distal to this. He had flaccid paralysis with 0/5 motor function in all motor groups in the lower extremities bilaterally. He was areflexic with testing of the patellar reflexes as well as ankle clonus. Babinski was nonresponsive. UPPER EXTREMITIES: Strength evaluation revealed intact motor function in all motor groups, but generalized weakness that appeared to be due to confusion. He appeared to have intact sensation to light touch in the upper extremities in all dermatomes. He had painless range of motion of the cervical spine, limited extension consistent with prior cervical fusion. IMAGING STUDIES: Thoracic and Lumbar MRI were reviewed. Image quality was significantly limited due to metallic artifact and motion artifact. The patient's upper mid thoracic spine did not appear to have any eliezer spinal cord compression or obvious abscess or fluid collection. Thoracolumbar spine was poorly visualized due to metallic artifact and motion artifact, subcutaneous fluid collection in subcutaneous tissues was noted. ASSESSMENT AND PLAN: The patient was brought emergently to the OR after consultation with anesthesia and medicine. Plan was for an emergent I&D of the thoracolumbar spine, exploration of the operative site, possible laminectomies, possible wound VAC application. Family is in agreement and the risk of lack of neurologic recovery was reviewed. ARI
[2017-07-11] MEDS ORDERED: DAPTOMYCIN CONSULT ACTIVE SCH (10:27)
[2017-07-11] MEDS ORDERED: SODIUM CHLORIDE 0.9% IV ONE (10:30)
[2017-07-11] MEDS ORDERED: METHYLPREDNISOLONE IV ONE (10:30)
[2017-07-11] MEDS: SODIUM CHLORIDE 0.9% 1000ML 1,000 ML IV SCH ×3 (10:41→22:48)
[2017-07-11] MEDS: FLUTICASONE/SALMETEROL 250/50 (ADVAIR) 14 PUFF/1 INHALER INH SCH ×2 (10:42→20:42)
--- NOTE | 2017-07-11 11:53 | Progress Note ---
Progress Note Date of Service Jul 11, 2017. Progress Note ID Consult Dictated #[id number] A/P: 1. Severe Sepsis with MODS - gpc sepsis 2. Post op infection - spinal fusion s/p I&D 3. Leukocytosis -Will continue emperic abx, follow cultures - suspect staph -Repeat cultures x 2 -Will need echo as well -With degree of paralysis would have low threshold for transfer to tertiary care center for neurosurgery eval -Steroids initiated, follow response -Thank you
--- NOTE | 2017-07-11 12:01 | Critical Care Progress Note ---
Critical Care Progress Note Date of Service Jul 11, 2017. Attending Dr. Ren Subjective The patient continues to have paraplegia, no sensation from the level of the umbilicus down below, the patient presented to the hospital with paraplegia, patient went to the OR emergently and underwent removal of hardware from the thoracolumbar spine and drainage of epidural abscess. The patient brought to the ICU for further monitoring. The patient in the ICU started to feel better however the pain was very uncontrollable. The patient continued to have no sensation in his lower extremities from the umbilical level down. He has no movement. His Babinskis were upgoing toes bilaterally. The patient was started empirically on Dilaudid for pain control, and he continued to have uncontrollable pain. He appeared to be very sensitive to Dilaudid doses. Anesthesia were consulted for pain control and their input is highly appreciated. The patient did not have any chest pain and no shortness of breath reported. He was on room air and his O2 saturation was 95%. Due to the persistent neurologic deficits and possible spinal cord shock or compression , the patient was started empirically on steroids. The patient oral intake was somewhat low. Objective The patient was awake but appeared lethargic. And his mental status also with the dose of Dilaudid, appreciate Dr. Wu assistance with adjusting the dose. Review of system was limited due to the patient pain control with narcotics. His physical exam revealed borderline blood pressure was 90/60, O2 saturation is 95% with nasal cannula, heart rate is 90 normal sinus rhythm with multiple ectopic beats. All appear to be atrial. No JVP, heart examination S1 and S2 regular rate and rhythm with ectopic beats, lungs with distant breath sounds at the bases, no crackles, abdomen is benign. Neuro examination revealed, normal cranial nerves bilaterally, 5 over 5 equal motor sensory function in the upper extremities. 0 over 5 in the lower extremities. No sensation from the level of the umbilicus and below. Babinski upgoing toes bilaterally. Areflexia in the patellar. Assessment & Plan #1 sepsis with gram-positive cocci bacteremia consistent with Staphylococcus aureus, sensitivities pending. #2 epidural abscess, status post removal of thoracolumbar hardware and abscess drainage. PAT in place. #3 spinal cord shock in which the patient blood pressure has been borderline supported with IV fluids. I am concerned the patient could be heading towards septic shock versus neurogenic shock. #4 paraplegia due to epidural abscess. #5 history of trigeminy rhythm. #6 borderline diabetes, diet-controlled. #7 acute kidney insufficiency in the face of sepsis. Plan: #1 I would continue with Zosyn and daptomycin. #2 I will change the IV fluid to normal saline given the patient isotonic fluid to maintain his blood pressure. #3 we will add norepinephrine if needed for blood pressure. #4 identification of the bacteremia noted to be Staphylococcus aureus, sensitivities pending, continue with current antibiotics. #5 the patient is very sensitive to all Dilaudid with 0.5 mg dose as he become more sleepy, the dose was adjusted to 0.2 mg every hour if needed. #[address] Wu input from anesthesia helping out with the management of this complex case. I agree with his plan adding gabapentin. #[address] Bagley input from infectious disease, we'll continue with the current antibiotics pending sensitivity. #8 although it is controversial, given the benefit and risk ratio with rather start the patient on Solu-Medrol drip to to help reduce inflammatory changes and hopefully it would add some benefits of starting spina cord function. The risk of hyperglycemia is minimal. Interaction with infectious process also is limited given the patient broad-spectrum antibiotic coverage. #9 DVT and GI prophylaxis provided. #[address] Torres from also, appreciate his input, we will start tonight heparin subcutaneous for DVT prophylaxis and start head elevation and OT consult. #11 given the patient sepsis and lack of neurosurgery service and our institution, I would plan to transfer the patient to the neuro unit where neurosurgery service is available and and further neuro monitoring is available. That can be accomplished at a tertiary care center. The patient underwent an emergency procedure and our institution and stabilize to the point that can be transferred to a tertiary care center. Discussed in details with the family who are in agreement in favor of this plan. #12 glucose control. #13 appreciate the input of pharmacy helping out with this case. Case discussed with the staff and details. Critical care time spent with the patient was 60 minutes. Data Medications: Current Inpatient Medications Medications (Trade) Dose Ordered Sig/Fabricio Route Start Time Stop Time Status Last Admin Dose Admin Acetaminophen (Tylenol Tab) 650 mg Q4H PRN PO 07/10/17 17:30 08/09/17 17:29 Lorazepam (Ativan Inj) 0.5 mg Q4H PRN IV 07/10/17 17:30 08/09/17 17:29 07/11/17 10:42 0.5 MG Ondansetron HCl (Zofran Inj) 4 mg Q6H PRN IV 07/10/17 17:30 08/09/17 17:29 Pantoprazole Sodium 40 mg/ Syringe 10 ml @ 5 mls/min DAILY IV 07/11/17 09:00 07/14/17 09:01 07/11/17 07:55 5 MLS/MIN Miscellaneous Information (Consult) 1 ea UD PRN N/A 07/10/17 17:45 08/09/17 17:44 Bupropion HCl (Wellbutrin-Xl Tab) 300 mg QAM PO 07/11/17 09:00 08/10/17 08:59 07/11/17 10:44 300 MG Salmeterol Xinafoate/ Fluticasone (Advair Diskus 250/50 Inh) 1 puff BID INH 07/10/17 21:00 08/09/17 20:59 07/11/17 10:42 1 PUFF Gabapentin (Neurontin Cap) 300 mg HS PO 07/10/17 21:00 08/09/17 20:59 07/11/17 10:44 300 MG Sertraline HCl (Zoloft Tab) 50 mg QAM PO 07/11/17 09:00 08/10/17 08:59 07/11/17 10:44 50 MG Tamsulosin HCl (Flomax Cap) 0.4 mg QAM PO 07/11/17 09:00 08/10/17 08:59 07/11/17 10:43 0.4 MG Piperacillin Sod/ Tazobactam Sod 4.5 gm/Dextrose 120 ml @ 30 mls/hr Q8H IV 07/11/17 02:00 08/22/17 01:59 07/11/17 02:27 30 MLS/HR Daptomycin 600 mg/ Syringe 12 ml @ 6 mls/min DAILY@1400 IV 07/11/17 14:00 07/23/17 14:01 Miscellaneous Information (Icu Protocol For Hyperglycemia) 1 ea PRN PRN N/A 07/10/17 22:15 07/12/17 22:14 Hydromorphone HCl (Dilaudid Inj) 0.5 mg Q2HWA PRN IV 07/11/17 03:00 07/25/17 02:59 07/11/17 10:42 0.5 MG Daptomycin (Consult) 1 ea UD N/A 07/11/17 10:27 08/10/17 10:26 Sodium Chloride 1,000 ml @ 125 mls/hr Q8H IV 07/11/17 09:00 08/10/17 08:59 07/11/17 10:41 125 MLS/HR Methylprednisolone Sodium Succinate 6530 mg/Sodium Chloride 354.48 ml @ 30.824 mls/hr TODAY@1115,2230 IV 07/11/17 11:15 07/12/17 09:59 Vital Signs: Date Time Temp Pulse Resp B/P (MAP) Pulse Ox O2 Delivery O2 Flow Rate FiO2 07/11/17 08:00 Room Air 07/11/17 08:00 37.7 104 20 109/69 (82) 94 Room Air 129/66 (87) 07/11/17 06:31 105 27 177/63 (101) 94 07/11/17 06:01 105 25 127/59 (81) 93 07/11/17 06:00 112 25 128/61 (83) 93 07/11/17 05:05 36.6 104 24 120/71 96 2.0 07/11/17 04:00 Nasal Cannula 2.0 07/11/17 03:58 36.7 103 24 139/63 97 2.0 07/11/17 03:28 36.7 103 22 131/62 95 2.0 07/11/17 03:15 36.9 101 21 123/89 95 2.0 07/11/17 03:10 36.9 103 23 135/66 96 2.0 07/11/17 00:00 Nasal Cannula 2.0 07/11/17 00:00 36.7 99 27 143/70 94 07/10/17 23:30 37.1 102 21 134/68 97 07/10/17 22:43 36.9 97 22 127/67 97 2.0 07/10/17 22:27 36.9 96 23 127/62 97 2.0 07/10/17 22:18 37.4 96 22 124/61 96 2.0 07/10/17 21:20 Room Air 2.0 07/10/17 21:10 37.0 97 18 96 Oxymask 3 103/51 07/10/17 21:00 96 18 98 Oxymask 5 91/47 07/10/17 20:50 99 18 106/51 100 Oxymask 5 93/47 07/10/17 20:41 37.3 99 20 106/51 100 Oxymask 10 07/10/17 18:43 37.0 105 20 125/71 96 07/10/17 18:12 37.0 101 20 113/72 95 Nasal Cannula 2.0 07/10/17 17:55 37.0 102 20 113/72 96 2.0 07/10/17 17:40 37.4 103 20 112/60 96 2.0 07/10/17 17:25 36.9 103 20 107/73 96 2.0 07/10/17 17:23 36.9 103 20 107/73 96 2.0 07/10/17 17:09 36.8 102 20 103/64 95 Nasal Cannula 2.0 07/10/17 16:27 108 07/10/17 16:25 108 20 107/59 92 Room Air 07/10/17 14:00 100 20 97/50 93 Room Air 07/10/17 13:21 99 107/65 93 Room Air 07/10/17 12:05 102 Laboratory Results: Last 24 Hours Test 07/10/17 12:09 07/10/17 12:40 07/10/17 14:00 07/10/17 17:58 Bedside Glucose 98 mg/dl Bedside Lactic Acid Venous 0.94 mmol/L Urine Color DK YELLOW Urine Appearance CLOUDY Urine pH 5.0 Urine Specific Cando 1.023 Urine Protein 1+ Urine Glucose (UA) NEG Urine Ketones TRACE Urine Occult Blood 2+ Urine Nitrite NEG Urine Bilirubin NEG Urine Urobilinogen NEG Urine Leukocyte Esterase NEG Urine WBC (Auto) 1-5 /hpf Urine RBC (Auto) 0-4 /hpf Urine Hyaline Casts (Auto) 1-5 /lpf Urine Epithelial Cells (Auto) >30 /lpf Urine Bacteria (Auto) NEG Urine Renal Epithelial Cells 0-5 /lpf Urine Crystals TALC Urine Pathogenic Casts 1-5 GRANULAR CASTS /lpf Urine Yeast (Auto) Lactic Acid Level 0.9 mmol/L Test 1/23/18 20:49 07/11/17 00:12 07/11/17 02:08 07/11/17 08:04 Hemoglobin 8.1 g/dL 8.5 g/dL 9.8 g/dL Hematocrit 23.9 % 25.6 % 28.6 % Sodium Level 138 mmol/L 138 mmol/L Potassium Level 3.0 mmol/L 3.5 mmol/L Chloride Level 108 mmol/L 108 mmol/L Carbon Dioxide Level 22 mmol/L 21 mmol/L Anion Gap 8.0 mmol/L 9.0 mmol/L Blood Urea Nitrogen 52 mg/dl 50 mg/dl Creatinine 2.09 mg/dl 1.80 mg/dl Est Creatinine Clear Calc Drug Dose 38.5 ml/min 45.9 ml/min Estimated GFR () 37.1 44.5 Estimated GFR (Non- 32.0 38.4 BUN/Creatinine Ratio 25.0 28.0 Random Glucose 93 mg/dl 91 mg/dl Calcium Level 7.5 mg/dl 7.4 mg/dl Bedside Glucose 86 mg/dl White Blood Count 24.94 K/uL Red Blood Count 3.05 M/uL Mean Corpuscular Volume 83.9 fL Mean Corpuscular Hemoglobin 27.9 pg Mean Corpuscular Hemoglobin Concent 33.2 g/dl Platelet Count 190 K/uL Mean Platelet Volume 10.2 fL Neutrophils (%) (Auto) 94.5 % Lymphocytes (%) (Auto) 2.0 % Monocytes (%) (Auto) 3.0 % Eosinophils (%) (Auto) 0.0 % Basophils (%) (Auto) 0.0 % Neutrophils # (Auto) 23.54 K/uL Lymphocytes # (Auto) 0.49 K/uL Monocytes # (Auto) 0.76 K/uL Eosinophils # (Auto) 0.01 K/uL Basophils # (Auto) 0.01 K/uL RDW Standard Deviation 43.6 fL RDW Coefficient of Variation 14.1 % Immature Granulocyte % (Auto) 0.5 % Immature Granulocyte # (Auto) 0.13 K/uL Toxic Vacuolation 2+ Ovalocytes 1+ Echinocytes 1+ Lactic Acid Level 0.8 mmol/L Phosphorus Level 3.1 mg/dl Magnesium Level 2.0 mg/dl Total Bilirubin 0.7 mg/dl Direct Bilirubin 0.3 mg/dl Aspartate Amino Transf (AST/SGOT) 48 U/L Alanine Aminotransferase (ALT/SGPT) 18 U/L Alkaline Phosphatase 74 U/L Total Creatine Kinase 1133 U/L 894 U/L Troponin I 0.066 ng/ml 0.127 ng/ml Total Protein 4.4 gm/dl Albumin 1.4 gm/dl Procalcitonin 6.19 ng/ml
[2017-07-11] MEDS: METHYLPREDNISOLONE IV SCH ×2 (12:09→22:15)
[2017-07-11] MEDS: SODIUM CHLORIDE 0.9% IV SCH ×2 (12:09→22:15)
--- NOTE | 2017-07-11 12:28 | INFECT. DISEASE CONSULTATION ---
DATE OF CONSULTATION: 07/11/2017 HISTORY OF PRESENT ILLNESS: This is a 67-year-old gentleman who recently underwent a thoracolumbar fusion surgery days prior to admission. He was discharged home and per nursing, was ambulating with a walker. He is also being followed by home nursing. His PAT drain was removed 2 days prior to admission. Since the drain was removed, the patient has had worsening fevers and has been increasingly lethargic. He had an episode of rigors yesterday and for that reason was brought to the hospital. Blood cultures were obtained late last night and are already positive on 2/2 sets for gram positive cocci. He did undergo a MRI of thoracic and lumbar spine upon arrival to the hospital, which showed an 8 x 2 cm abscess in the T6-T9, lower thoracic or upper lumbar area. He did go emergently to the OR last night and purulent drainage was noted with communication to the hardware. No drains were placed. Cultures were taken from the OR and Gram stain are growing gram positive cocci. The patient was placed empirically on daptomycin and Zosyn. Infectious diseases was consulted for sepsis and daptomycin use. He has been afebrile since admission. Just prior to my examination, he was given Ativan and Dilaudid and he is lethargic. His and his brother are present at the bedside. His white blood cell count was as high as 30,000 yesterday and it is 24 today. His sed rate is elevated at 67. He appears to be tolerating antibiotics well. When asked if he is in pain, he states that he is feeling "pretty good." I am unable to obtain any additional review of systems as he is lethargic from recent Ativan and Dilaudid. He is also started on Solu-Medrol as he remains without feeling from the nipple area down to his feet. Per nursing, his reflexes are intact; however, he has no movement or sensation in either lower extremity. His brother states that he was seen by surgery this morning and the plan is to reimage the patient within the next 24 hours to look for any additional collections as his area of paresthesia is higher than the area of abscess found in the OR yesterday. PAST MEDICAL HISTORY: Significant for high cholesterol, hypertension, and a recent spinal fusion with hardware placement from T12-L1 on the 05 of July. FAMILY HISTORY: Noncontributory. SOCIAL HISTORY: He does not smoke. He drinks occasionally. He is and currently employed as a dentist. He does not have any antibiotic. ALLERGIES: HE DOES HAVE AN ALLERGY TO NSAIDS. CURRENT MEDICATIONS: Include daptomycin, Solu-Medrol, Protonix, Wellbutrin, Zoloft, Flomax, Dilaudid, Zosyn, Advair, Neurontin, Tylenol, and Ativan. PHYSICAL EXAMINATION: VITAL SIGNS: His current temperature is 37.7. Prior to this, he has been afebrile. Pulse is 104, respiratory rate 20, blood pressure is 109/69, and oxygen saturation is 94% on room air. GENERAL: He is responsive, but lethargic secondary to receiving Ativan and Dilaudid prior to my examination. He does answer all questions appropriately, but then falls back to sleep. HEENT: Mucous membranes are dry. HEART: Regular. I do not auscultate a murmur. He is tachycardic. LUNGS: Clear anteriorly with decreased breath sounds at the bases. ABDOMEN: Nondistended. There is no purposeful movement or sensation again from the nipple level down. LABORATORY STUDIES: CBC today reveals a white blood cell count 24.9, hemoglobin is 9.8, and platelets are 190. Sed rate done yesterday is 63. Chemistry panel reveals a sodium of 138, potassium 3.5, chloride 108, bicarbonate 21, BUN 50, and creatinine 1.8 down from 2.9. Yesterday, it was 2.4 on admission. CRP was 37.3. Glucose is 91. Lactic acid 0.9. Procalcitonin is 6.1. CK was elevated at 1133. This improved to 894. Troponins are mildly elevated, most recently was 0.127. Urinalysis was negative for bacteria. Blood cultures again from the are growing gram positives in 2/2 sets. These were drawn on 12:20 and 12:30. Yesterday, urine cultures obtained and pending. OR culture has many polys and moderate gram positive cocci on Gram stain. Culture is pending. CAT scan of the abdomen and pelvis was done yesterday, which shows a subcutaneous fluid pocket and/or hematoma posterior to the spine involving the lower thoracic and upper lumbar injury. Per CAT scan report, this measured 10 x 3 cm. Again lumbar spine and thoracic spine MRI showed extensive metallic artifact with effusion. There was no evidence of focal collection or abscess in the lower lumbar spine; however, thoracic spine MRI did show a collection in the subcutaneous tissue, extending from T6-T9, which measured 8 x 2 cm. ASSESSMENT AND PLAN: 1. Gram-positive septicemia with postop infection with a significant abscess, status post drainage. 2. Leukocytosis. At this time, he will be continued on broad spectrum antibiotics and so additional culture results are back. Repeat blood cultures will be obtained. He will also need an echocardiogram. His major concern is severe sepsis with multiorgan dysfunction and subsequent paralysis postoperatively. He is currently on steroids. We will plan for repeat imaging, but I would suggest a low threshold for transfer to tertiary care center where he can undergo neurosurgical evaluation as well. Thank you for this consultation.
--- NOTE | 2017-07-11 12:50 | Anesthesiology Progress Note ---
Anesthesia Post Op Note Date & Time Jul 11, 2017 at 12:45 Vital Signs Pain Intensity: 8.0 Vital Signs Past 12 Hours Date Time Temp Pulse Resp B/P (MAP) Pulse Ox O2 Delivery O2 Flow Rate FiO2 07/11/17 08:00 Room Air 07/11/17 08:00 37.7 104 20 109/69 (82) 94 Room Air 129/66 (87) 07/11/17 06:31 105 27 177/63 (101) 94 07/11/17 06:01 105 25 127/59 (81) 93 07/11/17 06:00 112 25 128/61 (83) 93 07/11/17 05:05 36.6 104 24 120/71 96 2.0 07/11/17 04:00 Nasal Cannula 2.0 07/11/17 03:58 36.7 103 24 139/63 97 2.0 07/11/17 03:28 36.7 103 22 131/62 95 2.0 07/11/17 03:15 36.9 101 21 123/89 95 2.0 07/11/17 03:10 36.9 103 23 135/66 96 2.0 Notes Mental Status: alert / awake / arousable, participated in evaluation Nausea / Vomiting: adequately controlled Pain: see Notes Airway Patency, RR, SpO2: stable & adequate BP & HR: stable & adequate Hydration State: stable & adequate Awake alert anxious, c/o pain, treated with medication as ordered Scale number 8.. VSS. Pt voiced concerns pain wasn't controlled. Spoke with his nurse Ayaka working on strategy to improve patient's pain and comfort. To be seen by neurology and pain management. Updated Dr. Reich on patient status, will follow..
[2017-07-11] MEDS ORDERED: DAPTOmycin IV 600 MG in SYRINGE 0 ML IV SCH (14:00)
[2017-07-11] MEDS ORDERED: HYDROmorphone INJ 0.5 MG/0.5 ML SYR IV PRN (15:00)
--- NOTE | 2017-07-11 15:09 | Pain Management Consultation ---
Pain Management Consultation Date of Consultation Jul 11, 2017. Reason for Consultation Pain management input History Mr. Ronen Levi is a 67-year-old male admitted to [facility] with epidural abscess and sepsis. He underwent surgical debridement last night and is currently in intensive care unit. Consultation was requested by the respiratory assistant for management of patient's pain. History was obtained from patient's EMR and family members present as a patient is barely arousable. He is unable to respond to any questions and is unable to verbalize. He can barely remain awake for 10 seconds before falling back asleep. He has received Ativan and hydromorphone recently. Nursing staff reports that he becomes very lethargic after receiving hydromorphone at the current dose. Nursing staff reports that when the patient was awake earlier, he was complaining of pain at the surgical site. I am unable to obtain any further history from the patient regarding his pain symptoms as result. Past Medical/Surgical History (1) Cervical stenosis of spinal canal (2) Asthma with exacerbation (3) Sepsis (4) Spinal abscess (5) JORDAN (acute kidney injury) (6) S/P laminectomy (7) H/O spinal fusion Family History No pertinent family history Social / Work History Smokeless Tobacco Use: No Alcohol Use: none Marital Status: Occupation: employed Allergies Coded Allergies: No Known Drug Allergy (Verified Allergy, Unknown, ., 07/10/17) POLLEN (Verified Allergy, Unknown, HAY FEVER, 05/22/16) NSAIDs (Verified Adverse Reaction, Unknown, doesn't take had gastric bypass, 07/10/17) Medications Current Inpatient Medications Medications (Trade) Dose Ordered Sig/Fabricio Route Start Time Stop Time Status Last Admin Dose Admin Acetaminophen (Tylenol Tab) 650 mg Q4H PRN PO 07/10/17 17:30 08/09/17 17:29 Lorazepam (Ativan Inj) 0.5 mg Q4H PRN IV 07/10/17 17:30 08/09/17 17:29 07/11/17 10:42 0.5 MG Ondansetron HCl (Zofran Inj) 4 mg Q6H PRN IV 07/10/17 17:30 08/09/17 17:29 Pantoprazole Sodium 40 mg/ Syringe 10 ml @ 5 mls/min DAILY IV 07/11/17 09:00 07/14/17 09:01 07/11/17 07:55 5 MLS/MIN Miscellaneous Information (Consult) 1 ea UD PRN N/A 07/10/17 17:45 08/09/17 17:44 Bupropion HCl (Wellbutrin-Xl Tab) 300 mg QAM PO 07/11/17 09:00 08/10/17 08:59 07/11/17 10:44 300 MG Salmeterol Xinafoate/ Fluticasone (Advair Diskus 250/50 Inh) 1 puff BID INH 07/10/17 21:00 08/09/17 20:59 07/11/17 10:42 1 PUFF Gabapentin (Neurontin Cap) 300 mg HS PO 07/10/17 21:00 08/09/17 20:59 07/11/17 10:44 300 MG Sertraline HCl (Zoloft Tab) 50 mg QAM PO 07/11/17 09:00 08/10/17 08:59 07/11/17 10:44 50 MG Tamsulosin HCl (Flomax Cap) 0.4 mg QAM PO 07/11/17 09:00 08/10/17 08:59 07/11/17 10:43 0.4 MG Piperacillin Sod/ Tazobactam Sod 4.5 gm/Dextrose 120 ml @ 30 mls/hr Q8H IV 07/11/17 02:00 08/22/17 01:59 07/11/17 02:27 30 MLS/HR Daptomycin 600 mg/ Syringe 12 ml @ 6 mls/min DAILY@1400 IV 07/11/17 14:00 07/23/17 14:01 07/11/17 13:52 6 MLS/MIN Miscellaneous Information (Icu Protocol For Hyperglycemia) 1 ea PRN PRN N/A 07/10/17 22:15 07/12/17 22:14 Hydromorphone HCl (Dilaudid Inj) 0.5 mg Q2HWA PRN IV 07/11/17 03:00 07/25/17 02:59 07/11/17 13:57 0.5 MG Daptomycin (Consult) 1 ea UD N/A 07/11/17 10:27 08/10/17 10:26 Sodium Chloride 1,000 ml @ 125 mls/hr Q8H IV 07/11/17 09:00 2/23/18 08:59 07/11/17 10:41 125 MLS/HR Methylprednisolone Sodium Succinate 6530 mg/Sodium Chloride 354.48 ml @ 30.824 mls/hr TODAY@1115,2230 IV 07/11/17 11:15 07/12/17 09:59 07/11/17 12:09 30.824 MLS/HR Physical Exam Height & Weight: Height 5 feet, 6.00 inches. Weight 105.200 (Kilograms) 231 (Pounds) Last Vital Signs Documentation Date Time Temp Pulse Resp B/P (MAP) Pulse Ox O2 Delivery O2 Flow Rate FiO2 07/11/17 13:01 65 24 96/60 (67) 91 75/60 07/11/17 13:00 37.7 07/11/17 12:00 Room Air 07/11/17 05:05 2.0 Exam: Mr. Levi is asleep but entering the room. He is barely arousable with loud verbal stimulus but falsely within 10 seconds. He is unable to cooperate and answer any questions. He is moving his upper extremity spontaneously but he is not moving his extremities spontaneously. He does not respond to painful stimuli up to approximately T8 level. Above T8 level, he responds to painful stimulus. Further neurologic exam could not be carried out as patient is not able to cooperate. Laboratory Laboratory Results (Last CBC): 07/11/17 02:08 Red Blood Count 3.05 L, Mean Corpuscular Volume 83.9, Mean Corpuscular Hemoglobin 27.9, Mean Corpuscular Hemoglobin Concent 33.2, Mean Platelet Volume 10.2, Neutrophils (%) (Auto) 94.5, Lymphocytes (%) (Auto) 2.0, Monocytes (%) ( Auto) 3.0, Eosinophils (%) (Auto) 0.0, Basophils (%) (Auto) 0.0, Neutrophils # ( Auto) 23.54 H, Lymphocytes # (Auto) 0.49 L, Monocytes # (Auto) 0.76 H, Eosinophils # (Auto) 0.01, Basophils # (Auto) 0.01 07/11/17 08:04 [place] Drug Monitoring Program Search Results: patient reviewed within database Assessment 1. Status post debridement of epidural abscess in the thoracic spine. 2. Patient lethargic and unable to cooperate to obtain full history and physical examination pertinent his postop acute pain. Recommendations 1. Recommend changing IV hydromorphone to 0.2 mg every hour rather than the current regimen to minimize sedation and lethargy. 2. Recommend increasing gabapentin to 300 mg by mouth 3 times a day. 3. 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 4. Orders written. Recommendation discussed with Dr. Ren.
[2017-07-11] MEDS: PIPERACILL/TAZOBAC IV 4.5 GM in DEXTROSE 5% 100ML IV SCH ×2 (15:25→22:15)
--- NOTE | 2017-07-11 15:50 | Discharge Summary ---
Discharge Summary Date of Service Jul 11, 2017. 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 Sepsis - presumably due to post-op spinal infection Spinal shock S/p gastric bypass surgery Hx of DM II JORDAN on CKD Elevated Troponin Acute blood loss Anemia HTN BPH h/o Asthma Possible DARYL Immunizations: Have You Had Influenza Vaccine: Yes Influenza Vaccine Date: Apr 02, 2008 History of Tetanus Vaccine?: Yes Tetanus Immunization Date: Jun 02, 2005 History of Pneumococcal: Yes Pneumococcal Date: Jun 02, 2000 History of Hepatitis B Vaccine: Yes Hepatitis Immunization Date: Jun 02, 1998 Procedures: SPINE ONE VIEW, ANY LEVEL 07/10/17 IMPRESSION: Intraoperative localization likely at the T10-T11 level. ABD/PELVIS NO IV OR ORAL CONT 07/10/17 IMPRESSION: 1. Interval development of a subcutaneous fluid pocket and/or hematoma posterior to the spine involving the low thoracic and upper lumbar region. 2. This appears to relate to interval placement of a jose stabilization procedure of the low thoracic through upper lumbar region. 3. Pre-existing laminectomy and fusion of the upper lumbar region to superior sacrum. 4. Mild reactive small bowel ileus with no true obstructive changes. 5. Small bilateral pleural effusions with bibasilar atelectatic change. Consultations: Lodging Facilities Manager Neurology Orthopedics Discharge Exam Subjective Pt evaluation today including: conversation w/ patient, conversation w/ family , physical exam, chart review, lab review, review of studies, conversation w/ medical economics consultant PO Intake: Fair Voiding: haynes catheter in place The patient was seen and examined this morning. Pt and are present at bedside. The patient was seen in conjunction with Dr. Pelletier and Dr. Ren. The patient reports having intermittent pain throughout his back up into the shoulders, into his neck. He denies sensation of pain or light touch into bilateral lower extremities. The patient complains of an extremely dry mouth, and is requesting oral intake. He denies any difficulty with swallowing function or speech. He reports having sensation to light touch in the abdomen above the level of the umbilicus. Currently planning to begin a course of steroids, continue on broad-spectrum antibiotics, and supportive care. Additional Comments: Constitutional: No fever, sweats or chills Eyes: No diplopia, no worsening or blurred vision ENT: normal hearing, no trouble swallowing Respiratory: No cough, sputum, dyspnea at rest, patient denies shortness of breath Cardiovascular: No chest pain, tightness or palpitations Abdomen: No pain, + absent sensation to light touch below the umbilicus. No nausea, vomiting, diarrhea or constipation. Pt is unsure if he is passing gas. Musculoskeletal: No joint pain, calf pain, swelling Neurologic: sensation diminished below the level of the umbilicus and into BLE. Inability to move BLE. Psychiatric: No anxiety or depression Skin: No rash or itch Physical Exam: General: awake, alert, no apparent distress, occasionally has fine tremor in upper body Head: Normocephalic, atraumatic ENT: PERRL, EOMI, no pharyngeal exudate, MM dry Chest: Clear to auscultation, on room air, no adventitious breath sounds Cardiac: RRR with occasional PVC, no murmur, no JVD, normal peripheral pulses, good capillary refill Abdominal: NABS x 4 quadrants, soft, nontender to palpation. No sensation below the level of the umbilicus. Extremities: Normal inspection, minimal nonpitting BLE peripheral edema, no erythema, calfs nontender to palpation Psych: Normal mood and affect Neuro: AAO x 3, Flaccid paralysis of BLE with 0/5 strength. Patellar reflexes are absent. Babinski with outward flaring toes. Upper extremities: Strength is 3/5 in hand test carrier on left and 2/5 on right. Pt is able to shrug shoulders and move his head and neck with full active ROM. He has sensation to light touch in upper extremities. Speech is clear. Hospital Course This is a 67 yo M who underwent previous L1-S1 lumbar fusion and required revision of the lumbar fusion at T10 and T12-L1 decompression which was done at [facility] 2 week prior to this admission. The patient had developed increased drainage and bleeding from the surgical site, spinal drain was left intact and was removed 2 days prior to admission by home health nursing. On Sunday evening, pt developed increased lethargy and numbness that descended into the legs bilaterally, low grade fevers, rigors and presented to the ER via EMS. At the time of admission he had been nonambulatory x 24 hours. The patient was taken for emergent OR intervention due to severe sepsis. Abscess was I&Ds intraoperatively. Pt has been started on dapomycin and zosyn. 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 Acute anemia of 7.6 and 22.9 on admit now s/p 3 U PRBCs and maintained in the 9s. - CT as well as MRI of the thoracic and lumbar spines demonstrated possible hematoma versus abscess collection. 07/10: Pt taken to the OR by Dr. Pelletier for emergent laminectomy with hardware removal and incision and drainage - Started on Dapto/Zosyn on 07/09 - intraop abscess cultures growing out staph aureus, Blood cultures growing gram + cocci in 2/2 bottles at this time. - Aggressive IVF provided - may need pressors if hypotension recurs, he is currently off the epinephrine gtt. - Started on high dose solumedrol 07/10: Loading dose of 30 mg/kg x 1 then followed by 5.4 mg/kg/hr x 23 hours. - neurology consulted: - Sensory level is above where his lumbar abscesses, possible that this is spinal shock - Possible that may re-image with MRI within next 24 hours. Initial imaging studies were very poor due to rigors associated with sepsis and pt inability to lie flat. JORDAN on CKD - likely due to sepsis and volume depletion - IVF provided - trend BMP - Cr slightly improved to 1.8 this morning from 2.4 at time of admission - UA with granular casts, likely ATN with acute volume depletion. Elevated Troponin - 0.066 -->0.127 - Will trend x 1 more set, at this time unlikely ACS - Likely secondary to volume - demand ischemia with acute anemia as described below. Anemia - Hgb improved to 9.8 s/p 3 U PRBCs, first 2 U were minimally effective. Continue to trend CBC with am labs, may need more frequent checks if any changes with mentation. - secondary to acute blood loss HTN - Meds held due to hypotension BPH - catheter to be placed - cont Flomax h/o Asthma Possible DARYL - cont advair , prn Xopenex/Atrovent. - continuous pulse O2, o2 protocol, consider CPAP DVT ppx: Teds, scds, no chemical anticoagulation CODE STATUS: FULL CODE Disposition: Consider transfer to tertiary care center if any further neurological compromise. Discharge unknown currently. Time spent including chart review, discussion with patient and family, discussion with consultants, medical decision making was 95 min. Total Time Spent: Greater than 30 minutes This includes examination of the patient, discharge planning, medication reconciliation, and communication with other providers. Discharge Instructions Please refer to the electronic Patient Visit Report (Discharge Instructions) for additional information. Follow-Up Pt being transferred to [facility] Additional Copies To William Hudson D.O.
[2017-07-11] MEDS ORDERED: GABAPENTIN 300 MG CAP PO SCH (21:00)
--- NOTE | 2017-07-11 21:04 | ORTHOPEDICS PROGRESS NOTE ---
DATE: 07/11/2017 HISTORY OF PRESENT ILLNESS: Please note: this reflects my AM evaluation of patient. The patient reported incisional discomfort with attempted repositioning at the site of the thoracic incision. He reported an absence of sensation in the lower extremities. He denied any radicular pain at the time of my assessment. PHYSICAL EXAMINATION: GENERAL: The patient remained mildly tachycardic. Blood pressure was stable. Hemovac output was 80 overnight. NEUROLOGIC: Postop day #1 revealed no neurologic recovery in terms of motor function in lower extremities. Sensory level remained midway between the nipples and the umbilicus. Lower extremities remain areflexic. Upper extremities demonstrated some generalized weakness, but no focal deficits on strength testing and intact sensation to light touch in all distributions. LABORATORY DATA: Hematocrit was acceptable after transfusion. ASSESSMENT AND PLAN: The patient remained paraparetic due to epidural abscess. He appears to have improved blood pressure this morning after volume resuscitation and pressors. Defer to ICU for management of these issues. Discussion with neurology and hoop cutter regarding treatment plan and given that he appeared to be in septic shock presentation, steroids have not been administered. One consideration of length of time, he appeared to have clinical weakness prior to presentation. The patient will be maintained in the ICU with blood pressure maintenance, bowel regimen, skin checks and we discussed starting subQ heparin, on postop day #1 in the evening. Antibiotics per medicine/ID. The drain will remain in place. He is safe to reposition - the spine is stable. Given the discrepancy between the identified abscess in the sensory level, we discussed getting followup imaging to ensure there is no further process higher in the thoracic spine as it was not visualized well due to poor quality of previous study. Once he is medically stable, we discussed proceeding with this. ARI
[2017-07-11] MEDS ORDERED: NOREPINEPHRINE BIT INJ 8 MG in DEXTROSE 5% 500ML 500 ML IV PRN (22:13)
[2017-07-11] MEDS ORDERED: SODIUM CHLORIDE 0.9% 250ML 250 ML IV SCH (22:15)
[2017-07-11 23:19] LABS: HEMATOCRIT 31.4 % (42-52); HEMOGLOBIN 10.7 g/dL (14.0-18.0); MEAN CELL VOLUME 83.1 fL (80-100); MEAN CORPUSCULAR HEMOGLOBIN 28.3 pg (25-34); MEAN PLATELET VOLUME 10.5 fL (7.4-10.4); PLATELET COUNT 233 K/uL (130-400); RED CELL DISTRIBUTION WIDTH SD 45.6 fL (36.4-46.3); WHITE BLOOD COUNT 22.29 K/uL (4.8-10.8)
[2017-07-11 23:31] LABS: MEAN CORPUSCULAR HGB CONC 34.1 g/dl (32-36)
[2017-07-11 23:43] LABS: CALCIUM 7.9 mg/dl (8.5-10.1); CREATININE 1.61 mg/dl (0.60-1.40); POTASSIUM 3.5 mmol/L (3.5-5.1)
--- NOTE | 2017-07-11 23:46 | Critical Care Progress Note ---
Critical Care Progress Note Date of Service Jul 11, 2017. Critical Care Progress Note At 2100, the patient's blood pressure which had been maintaining in the low 100s to 90s systolic had drifted down into the 80s. Heart rate remained stable in the 90s. Patient received a 250 mL normal saline bolus at my direction. After the bolus, the patient's blood pressure had not changed and had actually dipped into the 70s consistently on a line readings. Levophed drip was ordered to help maintain blood pressure. At change of shift, patient was scheduled for ground transfer via [facility] crew from between [id number]. At 2149, we received a call informing us that the [facility] Ground Crew had been cancelled by video tape transferrer. 2158: I personally spoke with the coordinator who informed us that the transfer had been decline secondary to increased ground influx to their facility. They informed us that we would need to arrange transport to their facility. 2209: I personally spoke with admissions who attempted to contact other ground transport support who had declined. She was awaiting to hear back from [facility] ground crew who had been dispatched to a transport to [facility] earlier in the evening. 2215: Patient's BP continues to decrease - 60s-70s systolic w/ MAPs in the 50s - order to start Levophed gtt. 2235: Spoke with [facility] transfer center for Air Transfer. 2245: [facility] transfer center called back to state that Leidy would not be flying 2/2 "icing". 2249: Added stat labs while awaiting transfer. 2254: Attempted to contact [facility] EMS crew ([phone]) - No answer. 2255: Spoke with [facility] EMS crew ([phone]). [employer] states that he cannot transport patient at this time if patient on Levophed gtt. Would need nurse versus critical care transport. 225: Spoke with clinical coordinator (Malgorzata). Will contact [facility] Crew versus sending Nurse en route w/ pt. 2300: Spoke with [facility] transfer center. They are OK with us contacting other critical care transport staff as they have no available crews at this point. 2304: Spoke with [facility] transfer center in regards to transfer patient with [facility] crew to [facility]. Will "verify room and contact crew". 2325: Return call from [facility] transfer center - [facility] ETA 10 min. Throughout this process, I did perform laboratory interpretation. The patient has a stable H&H despite his declining blood pressure. His blood pressure did improve with vasopressor support. I had multiple conversations with family regarding transfer and appropriateness to facility. All questions were answered to patient and family's satisfaction. Patient remains in guarded condition. I have personally spent 45 minutes of critical care time in the direct management of this patient. This is a life/limb threatening event. This includes time spent evaluating patient, direct bedside care, chart review, placing orders, interpretation of diagnostic studies, discussion with consultants, patient, and family members, as well as other required patient management activities. This time is exclusive of all separately billable procedures, and teaching time and separate from and in addition to any other critical care service time. Thank you for this consultation allow us to be part of this patient's care. Please refer to my attending physician's documentation for any further recommendations.
[2017-07-12] VITALS: BP 110/52
== END 2017-07-12 00:25 | disposition short-term general hospital (02) | DRG 495 ==
LOC: EDBD 11:23 → C.EDC 11:30 → C.MSICU 17:33 → ENRESERV 19:04
PROVIDERS: ADMIT Internal Medicine; ATTEND Internal Medicine
PROC: 0J9700Z Drainage of Back Subcutaneous Tissue and Fascia with Drainage Device, Open Approach (ICD-10-PCS; principal; 2017-07-10 17:30)
PROC: 0PP404Z Removal of Internal Fixation Device from Thoracic Vertebra, Open Approach (ICD-10-PCS; principal; 2017-07-10 17:30)
DX: T84.7XXA Infection and inflammatory reaction due to other internal orthopedic prosthetic devices, implants and grafts, initial encounter (principal); A41.01 Sepsis due to Methicillin susceptible Staphylococcus aureus; R65.20 Severe sepsis without septic shock; G06.1 Intraspinal abscess and granuloma; R57.1 Hypovolemic shock; G82.20 Paraplegia, unspecified; N17.9 Acute kidney failure, unspecified; D62 Acute posthemorrhagic anemia; I24.8 Other forms of acute ischemic heart disease; R29.2 Abnormal reflex; Z98.1 Arthrodesis status; E87.6 Hypokalemia; I12.9 Hypertensive chronic kidney disease with stage 1 through stage 4 chronic kidney disease, or unspecified chronic kidney disease; N18.9 Chronic kidney disease, unspecified; R73.03 Prediabetes; N40.0 Benign prostatic hyperplasia without lower urinary tract symptoms; J45.909 Unspecified asthma, uncomplicated; G47.33 Obstructive sleep apnea (adult) (pediatric); F32.9 Major depressive disorder, single episode, unspecified; F41.9 Anxiety disorder, unspecified; E66.9 Obesity, unspecified; Z68.37 Body mass index [BMI] 37.0-37.9, adult; Z98.84 Bariatric surgery status; Z79.891 Long term (current) use of opiate analgesic; Z79.899 Other long term (current) drug therapy; N13.9 Obstructive and reflux uropathy, unspecified

== ENCOUNTER 2017-10-19 14:00 | Inpatient (IN) | payer BC, OTHER ==
[~2017-10-19] VITALS: Ht 170.2 cm; Wt 89.1 kg
[~2017-10-19 14:00] MED LIST changes: +GABA-1219 PO; +METO25TA4 PO; +MORP1TAB11 PO; -OXYC15TA89 PO
[2017-10-19] MEDS ORDERED: SODIUM CHLORIDE 0.9% 1000ML 1,000 ML IV STA (14:38)
[2017-10-19 14:48] LABS: BASO % 0.3 %; BASO ABS # 0.02 K/uL (0-0.2); EOS % 13.5 %; EOS ABS # 0.93 K/uL (0-0.5); HEMATOCRIT 31.2 % (42-52); HEMOGLOBIN 10.2 g/dL (14.0-18.0); IG# 0.01 K/uL (0.00-0.02); LYMPH ABS # 2.28 K/uL (1.2-3.4); MEAN CELL VOLUME 90.4 fL (80-100); MEAN CORPUSCULAR HEMOGLOBIN 29.6 pg (25-34); MEAN CORPUSCULAR HGB CONC 32.7 g/dl (32-36); MEAN PLATELET VOLUME 9.5 fL (7.4-10.4); MONO % 5.9 %; MONO ABS # 0.41 K/uL (0.11-0.59); NEUT % 47.2 %; NEUT ABS # 3.26 K/uL (1.4-6.5); PLATELET COUNT 256 K/uL (130-400); RED CELL DISTRIBUTION WIDTH SD 53.5 fL (36.4-46.3); WHITE BLOOD COUNT 6.91 K/uL (4.8-10.8)
[2017-10-19 14:57] LABS: ALBUMIN 1.8 gm/dl (3.4-5.0); ALT/SGPT 17 U/L (12-78); AST/SGOT 19 U/L (15-37); BLOOD UREA NITROGEN 12 mg/dl (7-18); CALCIUM 8.4 mg/dl (8.5-10.1); CARBON DIOXIDE 28 mmol/L (21-32); CREATININE 0.69 mg/dl (0.60-1.40); GLUCOSE 81 mg/dl (70-99); LIPASE 145 U/L (73-393); POTASSIUM 3.7 mmol/L (3.5-5.1); SODIUM 143 mmol/L (136-145)
[2017-10-19 15:02] LABS: ALKALINE PHOSPHATASE 143 U/L (45-117)
--- NOTE | 2017-10-19 15:40 | DIAGNOSTIC IMAGING REPORT ---
CHEST ONE VIEW PORTABLE CLINICAL HISTORY: Evaluate Fever/Sepsis COMPARISON STUDY: Chest radiograph July 10, 2017. FINDINGS: Postoperative findings within the cervical spine as well as the lumbar spine are partially imaged. There is no pneumothorax. There are small bilateral pleural effusions. There is interstitial thickening consistent with pulmonary edema. Bibasilar opacities are noted. IMPRESSION: 1. Interstitial thickening consistent with pulmonary edema. 2. Small bilateral pleural effusions with bibasilar opacities which favor atelectasis however consolidation could appear similar. Radiographic follow-up is recommended. 3. Mild cardiomegaly. Electronically signed by: Kelton Moulton M.D. 10/19/2017 3:38 PM Dictated Date/Time: 10/19/2017 3:37 PM
[2017-10-19] MEDS ORDERED: FERR1TAB62 PO (15:44)
[2017-10-19] MEDS ORDERED: DICL250C73 PO (15:44)
[2017-10-19] MEDS ORDERED: MIDO5TAB PO (15:44)
[2017-10-19] MEDS ORDERED: SERT1TAB88 PO (15:44)
[2017-10-19] MEDS ORDERED: POTA-639 PO (15:44)
[2017-10-19] MEDS ORDERED: PROBCAP2 PO (15:44)
[2017-10-19] MEDS ORDERED: PANT40TA2 PO (15:44)
[2017-10-19] MEDS ORDERED: ZYP5 PO (15:44)
[2017-10-19] MEDS ORDERED: ATV5X PO (15:44)
[2017-10-19] MEDS ORDERED: ACET-1256 PO (15:55)
[2017-10-19] MEDS ORDERED: CYAN100020 PO (15:57)
[2017-10-19] MEDS ORDERED: PIPERACILLIN/TAZOBACTAM 4.5 GM/100ML D5W IV STA (16:41)
[2017-10-19] MEDS ORDERED: VANCOMYCIN IV STA (16:41)
[2017-10-19] MEDS ORDERED: SODIUM CHLORIDE 0.9% IV STA (16:41)
[2017-10-19] MEDS ORDERED: VANCOMYCIN CONSULT ACTIVE PRN ×2 (16:45→19:00)
[2017-10-19 16:57] LABS: INFLUENZA A PCR Neg for Influ A (NEG); INFLUENZA B PCR Neg for Influ B (NEG)
[2017-10-19] MEDS ORDERED: VANCOMYCIN IV 1,000 MG in SODIUM CHLORIDE 0.9% 250ML 250 ML IV STA (17:15)
[2017-10-19] MEDS ORDERED: VANCOMYCIN 1GM ED/ASU OMNICELL ONE (17:31)
[2017-10-19] MEDS ORDERED: POLYETHYLENE (MIRALAX) 17 GM PACK PO PRN (17:45)
[2017-10-19] MEDS ORDERED: ONDANSETRON INJ 2 MG/ML 2 ML VIAL IV PRN (17:45)
[2017-10-19] MEDS ORDERED: ACETAMINOPHEN 500 MG TAB PO PRN (17:45)
[2017-10-19] MEDS ORDERED: ALUMINUM/MAGNESIUM/SIMETH (MAALOX MAX) 30 ML UDC PO PRN (17:45)
[2017-10-19] MEDS ORDERED: PIPERACILL/TAZOBAC CONSULT ACTIVE PRN (18:00)
--- NOTE | 2017-10-19 18:02 | History and Physical ---
History & Physical Date & Time of Service: October 19, 2017 at 17:55 Chief Complaint: Sob/Illness Primary Care Physician: William Hudson D.O. History of Present Illness This patient is a 67-year-old paraplegic from recent spinal infection after having spinal surgery. This occurred around June of this year. Patient is chronically debilitated with lower extremity weakness having a chronic Mckeon catheter and rectal incontinence. The patient states that he over the last few days has had fevers and chills has "felt cold all the time" is at increased blood pressure and felt short of breath. He was encouraged to come to his family physician however that was then referred to him come to the ER in the ER his chest x-ray reveals bilateral pulmonary congestion which looks most consistent with heart failure he is an abnormal urinalysis but is chronically catheterized. He has no overt fever at this time no other focal signs or symptoms of new changes or problems with his body including no focal discomfort his back or increased spasticity of his legs Past Medical/Surgical History Medical Problems: (1) Abdominal pain (2) Acute blood loss anemia (3) JORDAN (acute kidney injury) (4) Asthma attack (5) Asthma with exacerbation (6) Campylobacter diarrhea (7) Cervical stenosis of spinal canal (8) Flank pain (9) Heart failure (10) Hypokalemia (11) Hypovolemic shock (12) Kidney stone (13) Kidney stone (14) Kidney stones (15) Nausea, vomiting and diarrhea (16) Pneumonia (17) Sepsis (18) Spinal abscess (19) UTI (urinary tract infection) Surgical Problems: (1) H/O spinal fusion (2) S/P laminectomy Family History No pertinent family history Patient denies any pertinent medical family history Social History Smoking Status: Never Smoker Drug Use: none Marital Status: Occupational Status: employed Immunizations History of Influenza Vaccine: Yes Influenza Vaccine Date: Apr 02, 2008 History of Tetanus Vaccine?: Yes Tetanus Immunization Date: Jun 02, 2005 History of Pneumococcal: Yes Pneumococcal Date: Jun 02, 2000 History of Hepatitis B Vaccine: Yes Hepatitis Immunization Date: Jun 02, 1998 Allergies Coded Allergies: No Known Drug Allergy (Verified Allergy, Unknown, ., 07/10/17) POLLEN (Verified Allergy, Unknown, HAY FEVER, 05/22/16) NSAIDs (Verified Adverse Reaction, Unknown, doesn't take had gastric bypass, 07/10/17) Home Medications Scheduled Calcium W/ Magnesium (Calcium/Magnesium), 1 TAB PO QAM Cholecalciferol (Vitamin D3), 2 CAP PO QAM Cyanocobalamin (Vitamin B12), 1 TAB PO DAILY Dicloxacillin Sodium (Dynapen), 250 MG PO QID Ferrous Sulfate (Ferrous Sulfate), 325 MG PO BID Lorazepam (Lorazepam), 0.25 MG PO HS Midodrine Hcl (Midodrine Hcl), 5 MG PO BID Olanzapine (Olanzapine), 5 MG PO HS Pantoprazole (Pantoprazole Sodium), 40 MG PO DAILY Potassium Ext Rel (Klor-Con), 20 MEQ PO DAILY Probiotic Product (Florajen3), 1 CAP PO DAILY Sertraline HCl (Sertraline HCl), 75 MG PO DAILY Scheduled PRN Acetaminophen (Tylenol), 1,000 MG PO Q6 PRN for Pain Albuterol Hfa (Ventolin Hfa), 2-4 PUFFS INH Q6H PRN for Shortness of Breath Fluticasone Prop/Salmeterol (Advair Diskus 250-50 Mcg/Dose), 1 PUFF INH BID PRN for SOB/Wheezing Review of Systems ROS: well nourished well developed. No double vision blurry vision No problems with speech or swallowing No palpitations, chest pain or pressure he does give a history of having an atrial tachycardia prior to his surgery but is no details regarding that has not had a evaluation of a health system prior to his presentation in June Patient feels he has been short of breath may be hearing a scant wheeze and occasionally No abdominal pain nausea vomiting diarrhea he is chronically catheterized with notices no changes in his urine color No focal joint pain or muscle pain he is chronically with lower extremity weakness No skin rashes or oral lesions No unusual bruising or bleeding No focused back pain or increased spasticity No changes in memory or confusion Physical Exam Vital Signs Date Time Temp Pulse Resp B/P (MAP) Pulse Ox O2 Delivery O2 Flow Rate FiO2 10/19/17 17:44 81 23 144/77 97 Nasal Cannula 2.0 10/19/17 16:49 86 22 138/73 98 Nasal Cannula 2.0 10/19/17 15:55 82 22 154/77 97 Nasal Cannula 2.0 10/19/17 15:03 81 23 138/76 97 Nasal Cannula 2.0 10/19/17 14:20 95 Nasal Cannula 2.0 10/19/17 14:20 78 10/19/17 14:05 36.8 89 23 145/77 95 Nasal Cannula 2.0 10/19/17 14:05 95 Nasal Cannula 2.0 General Appearance: WD/WN, + moderate distress Head: normocephalic, atraumatic Eyes: normal inspection, sclerae normal ENT: hearing grossly normal, pharynx normal Neck: supple, no JVD Respiratory/Chest: chest non-tender, no respiratory distress, + rales Cardiovascular: regular rate, rhythm, no murmur Abdomen/GI: normal bowel sounds, non tender, soft Back: normal inspection, no CVA tenderness, no muscle spasm Extremities/Musculoskelatal: + pedal edema, + pertinent finding (No venous cords or cellulitis noted) Neurologic/Psych: alert, oriented x 3, + pertinent finding (Has pretty much flaccid lower extremities) Skin: normal color, warm/dry Diagnostics Laboratory Results Results Past 24 Hours Test 10/19/17 14:00 10/19/17 14:50 10/19/17 15:05 10/19/17 15:13 Range/Units White Blood Count 6.91 4.8-10.8 K/uL Red Blood Count 3.45 4.7-6.1 M/uL Hemoglobin 10.2 14.0-18.0 g/dL Hematocrit 31.2 42-52 % Mean Corpuscular Volume 90.4 80-100 fL Mean Corpuscular Hemoglobin 29.6 25-34 pg Mean Corpuscular Hemoglobin Concent 32.7 32-36 g/dl Platelet Count 256 130-400 K/uL Mean Platelet Volume 9.5 7.4-10.4 fL Neutrophils (%) (Auto) 47.2 % Lymphocytes (%) (Auto) 33.0 % Monocytes (%) (Auto) 5.9 % Eosinophils (%) (Auto) 13.5 % Basophils (%) (Auto) 0.3 % Neutrophils # (Auto) 3.26 1.4-6.5 K/uL Lymphocytes # (Auto) 2.28 1.2-3.4 K/uL Monocytes # (Auto) 0.41 0.11-0.59 K/uL Eosinophils # (Auto) 0.93 0-0.5 K/uL Basophils # (Auto) 0.02 0-0.2 K/uL RDW Standard Deviation 53.5 36.4-46.3 fL RDW Coefficient of Variation 16.0 11.5-14.5 % Immature Granulocyte % (Auto) 0.1 % Immature Granulocyte # (Auto) 0.01 0.00-0.02 K/uL Sodium Level 143 136-145 mmol/L Potassium Level 3.7 3.5-5.1 mmol/L Chloride Level 110 98-107 mmol/L Carbon Dioxide Level 28 21-32 mmol/L Anion Gap 5.0 3-11 mmol/L Blood Urea Nitrogen 12 7-18 mg/dl Creatinine 0.69 0.60-1.40 mg/dl Est Creatinine Clear Calc Drug Dose 77.8 ml/min Estimated GFR () 114.7 Estimated GFR (Non- 98.9 BUN/Creatinine Ratio 17.4 10-20 Random Glucose 81 70-99 mg/dl Calcium Level 8.4 8.5-10.1 mg/dl Total Bilirubin 0.2 0.2-1 mg/dl Direct Bilirubin 0.1 0-0.2 mg/dl Aspartate Amino Transf (AST/SGOT) 19 15-37 U/L Alanine Aminotransferase (ALT/SGPT) 17 12-78 U/L Alkaline Phosphatase 143 45-117 U/L Troponin I < 0.015 0-0.045 ng/ml Pro-B-Type Natriuretic Peptide 3518 0-900 pg/ml Total Protein 6.0 6.4-8.2 gm/dl Albumin 1.8 3.4-5.0 gm/dl Lipase 145 73-393 U/L Lactic Acid Level 1.2 0.4-2.0 mmol/L Urine Color YELLOW Urine Appearance CLOUDY CLEAR Urine pH 5.5 4.5-7.5 Urine Specific [place] 1.014 1.000-1.030 Urine Protein TRACE NEG Urine Glucose (UA) NEG NEG Urine Ketones NEG NEG Urine Occult Blood 1+ NEG Urine Nitrite POS NEG Urine Bilirubin NEG NEG Urine Urobilinogen NEG NEG Urine Leukocyte Esterase LARGE NEG Urine WBC (Auto) >30 0-5 /hpf Urine RBC (Auto) 5-10 0-4 /hpf Urine Hyaline Casts (Auto) 10-30 0-5 /lpf Urine Epithelial Cells (Auto) 0-5 0-5 /lpf Urine Bacteria (Auto) 1+ NEG Venous Blood pH 7.37 7.36-7.41 Venous Blood Partial Pressure CO2 47 38.0-50.0 mmHg Venous Blood Partial Pressure O2 39 mmHg Venous Blood HCO3 26 mmol/L Venous Blood Oxygen Saturation 71.7 % Venous Blood Base Excess 0.7 mEq/L Test 10/19/17 15:58 Range/Units Influenza Type A (RT-PCR) Neg for Influ A NEG Influenza Type B (RT-PCR) Neg for Influ B NEG Microbiology Results 10/19/17 Blood Culture, Received Pending 10/19/17 Blood Culture, Received Pending 10/19/17 Urine Culture, Received Pending other (Chest x-ray shows bilateral increased interstitial markings in her right median fissure fluid collection) Impression Assessment and Plan 67-year-old male presents with shortness of breath with a prehospital history of hypertension and fever concerns for infectious source could be lung or urine , previous history of MSSA infection from his back with lower extremity paralysis because of it Infectious disease, the patient typically takes dicloxacillin suppressive therapy this will be held as he is on vancomycin and Zosyn. Blood cultures are obtained. Urine culture be obtained. A renal ultrasound because of his history of kidney stones a see if he has any obstructive uropathy that may predispose of a baby more ill than he is actually appearing. We will consult infectious disease to determine the best use of antibiotics once we have his source. A transthoracic echocardiogram will be obtained due to concern for heart failure this will also evaluate for valvular issues he has no peripheral stigmata of endocarditis at this time Regarding the clinical presentation of possible heart failure, with his previous staph bacteremia concern for valvular competence will be undertaken. The patient has no signs or symptoms of acute coronary syndrome however we will have him in telemetry unit given his history of tachyarrhythmia and will trend cardiac enzymes Regarding his urine out let obstruction of the chronic Mckeon catheter will maintain this at this time Regarding medications for his bilateral lower extremity paralysis or paraplegia will maintain his Lorazepam for spasticity and his Zyprexa for his general mood He does have a history of asthma does not appear to be the local [place] truck [place] of this particular admission will maintain his Advair with as needed albuterol DVT prevention is Lovenox therapy Patient is a full code Resuscitation Status VTE Prophylaxis Will order VTE Prophylaxis: Yes
[2017-10-19] MEDS ORDERED: HydrALAZINE HCL 20 MG/ML VIAL IV PRN (18:15)
[2017-10-19] MEDS ORDERED: ALBUTEROL HFA 8 GM INHALER INH PRN (18:15)
[2017-10-19] MEDS ORDERED: FLUTICASONE/SALMETEROL 250/50 (ADVAIR) 14 PUFF/1 INHALER INH PRN (18:15)
--- NOTE | 2017-10-19 19:15 | EMERGENCY ROOM VISIT NOTE ---
History Report prepared by Johnny: Lilian Carlos Under the Supervision of: Dr. Cj Roy M.D. First contact with patient: 14:36 Chief Complaint: SHORTNESS OF BREATH Stated Complaint: SOB/ILLNESS Nursing Triage Summary: Pt reports increased work of breathing over past day, since yesterday 5/3 in AM. Pt was examined by home health nurse this AM who spoke with Dr Chin, who wanted pt evaluated in ED. History of asthma. EMS reported audible expiratory wheezing, crackles in lower right lobe. 92% SaO2 on room air. Duoneb administered en route and O2 at 2LMPM, SaO2 up to 97%. Pt states he has a weak cough, is not bringings anything up. Prehosptial BP 154/ 82. Entidal 23. Pt also c/o pain in bilateral upper arms "the long bones on my arms ache". Pt is recent parapalegic as of Jun 2017, Hx of staph-A non-MRSA. Pt denies trauma. History of Present Illness The patient is a 67 year old male who presents to the Emergency Room with complaints of persistent SOB starting yesterday. 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 The infection was thought to have originated from a spinal fusion surgery he had in the past. He started feeling like it was harder to breathe yesterday. His home health nurse was concerned about his breathing and found that he had a fever. His blood pressure was also higher than normal. He had been feeling at baseline 3 days ago. He has had a headache for which he took Tylenol. He has some chest tightness which he attributes to breathing hard. He denies any cough, congestion, nausea, vomiting, or diarrhea. The urine through his Mckeon has appeared clear. His leg swelling is at baseline. He is on antibiotics indefinitely. The dose was decreased around 2 weeks ago. He is normally not on oxygen. The patient was on Lovenox, but was taken off of it 2.5 weeks ago. Source of History: patient, spouse/significant other Onset: yesterday Position: chest Quality: other (SOB) Timing: other (persistent) Associated Symptoms: + fevers, + headache, No cough, No nausea, No vomiting , No diarrhea, No urinary symptoms Note: Pt reports high blood pressure, chest tightness. Review of Systems See HPI for pertinent positives and negatives. A total of ten systems were reviewed and were otherwise negative. Past Medical & Surgical Medical Problems: (1) Heart failure (2) Kidney stones (3) UTI (urinary tract infection) Surgical Problems: (1) H/O spinal fusion Family History No pertinent family history Social History Smoking Status: Never Smoker Drug Use: none Marital Status: Housing Status: lives with significant other Occupation Status: employed Current/Historical Medications Scheduled Calcium W/ Magnesium (Calcium/Magnesium), 1 TAB PO QAM Cholecalciferol (Vitamin D3), 2 CAP PO QAM Cyanocobalamin (Vitamin B12), 1 TAB PO DAILY Dicloxacillin Sodium (Dynapen), 250 MG PO QID Ferrous Sulfate (Ferrous Sulfate), 325 MG PO BID Lorazepam (Lorazepam), 0.25 MG PO HS Midodrine Hcl (Midodrine Hcl), 5 MG PO BID Olanzapine (Olanzapine), 5 MG PO HS Pantoprazole (Pantoprazole Sodium), 40 MG PO DAILY Potassium Ext Rel (Klor-Con), 20 MEQ PO DAILY Probiotic Product (Florajen3), 1 CAP PO DAILY Sertraline HCl (Sertraline HCl), 75 MG PO DAILY Scheduled PRN Acetaminophen (Tylenol), 1,000 MG PO Q6 PRN for Pain Albuterol Hfa (Ventolin Hfa), 2-4 PUFFS INH Q6H PRN for Shortness of Breath Fluticasone Prop/Salmeterol (Advair Diskus 250-50 Mcg/Dose), 1 PUFF INH BID PRN for SOB/Wheezing Allergies Coded Allergies: No Known Drug Allergy (Verified Allergy, Unknown, ., 07/10/17) POLLEN (Verified Allergy, Unknown, HAY FEVER, 05/22/16) NSAIDs (Verified Adverse Reaction, Unknown, doesn't take had gastric bypass, 07/10/17) Physical Exam Vital Signs Date Time Temp Pulse Resp B/P (MAP) Pulse Ox O2 Delivery O2 Flow Rate FiO2 10/19/17 16:49 86 22 138/73 98 Nasal Cannula 2.0 10/19/17 15:55 82 22 154/77 97 Nasal Cannula 2.0 10/19/17 15:03 81 23 138/76 97 Nasal Cannula 2.0 10/19/17 14:20 95 Nasal Cannula 2.0 10/19/17 14:20 78 10/19/17 14:05 36.8 89 23 145/77 95 Nasal Cannula 2.0 10/19/17 14:05 95 Nasal Cannula 2.0 Physical Exam GENERAL: Awake, alert, chronically ill-appearing, fatigued, in no distress HENT: Normocephalic, atraumatic. Dry cracked mucous membranes, otherwise oropharynx unremarkable. EYES: Normal conjunctiva. Sclera non-icteric. NECK: Supple. No nuchal rigidity. FROM. No JVD. RESPIRATORY: Diminished breath sounds at the bases, otherwise clear to auscultation. CARDIAC: Regular rate, normal rhythm. Extremities warm and well perfused. Pulses equal. ABDOMEN: Soft, non-distended. No tenderness to palpation. No rebound or guarding. No masses. RECTAL: Deferred. MUSCULOSKELETAL: Chest examination reveals no tenderness. The back is symmetrical on inspection without obvious abnormality. There is no CVA tenderness to palpation. No joint edema. LOWER EXTREMITIES: Calves are equal size bilaterally and non-tender. 2+ edema. No discoloration. NEURO: Normal sensorium. Paralysis from the nipple line distally at baseline. SKIN: No rash or jaundice noted. Medical Decision & Procedures ER Provider Diagnostic Interpretation: Radiology results as stated below per my review and radiologist interpretation: CHEST ONE VIEW PORTABLE CLINICAL HISTORY: Evaluate Fever/Sepsis COMPARISON STUDY: Chest radiograph July 10, 2017. FINDINGS: Postoperative findings within the cervical spine as well as the lumbar spine are partially imaged. There is no pneumothorax. There are small bilateral pleural effusions. There is interstitial thickening consistent with pulmonary edema. Bibasilar opacities are noted. IMPRESSION: 1. Interstitial thickening consistent with pulmonary edema. 2. Small bilateral pleural effusions with bibasilar opacities which favor atelectasis however consolidation could appear similar. Radiographic follow-up is recommended. 3. Mild cardiomegaly. Electronically signed by: Kelton Moulton M.D. 10/19/2017 3:38 PM Dictated Date/Time: 10/19/2017 3:37 PM Laboratory Results 10/19/17 14:00 Red Blood Count 3.45, Mean Corpuscular Volume 90.4, Mean Corpuscular Hemoglobin 29.6, Mean Corpuscular Hemoglobin Concent 32.7, Mean Platelet Volume 9.5, Neutrophils (%) (Auto) 47.2, Lymphocytes (%) (Auto) 33.0, Monocytes (%) (Auto) 5.9, Eosinophils (%) (Auto) 13.5, Basophils (%) (Auto) 0.3, Neutrophils # (Auto ) 3.26, Lymphocytes # (Auto) 2.28, Monocytes # (Auto) 0.41, Eosinophils # (Auto ) 0.93, Basophils # (Auto) 0.02 10/19/17 14:00 Test 10/19/17 14:00 10/19/17 14:50 10/19/17 15:05 10/19/17 15:13 White Blood Count 6.91 K/uL (4.8-10.8) Red Blood Count 3.45 M/uL (4.7-6.1) Hemoglobin 10.2 g/dL (14.0-18.0) Hematocrit 31.2 % (42-52) Mean Corpuscular Volume 90.4 fL (80-100) Mean Corpuscular Hemoglobin 29.6 pg (25-34) Mean Corpuscular Hemoglobin Concent 32.7 g/dl (32-36) Platelet Count 256 K/uL (130-400) Mean Platelet Volume 9.5 fL (7.4-10.4) Neutrophils (%) (Auto) 47.2 % Lymphocytes (%) (Auto) 33.0 % Monocytes (%) (Auto) 5.9 % Eosinophils (%) (Auto) 13.5 % Basophils (%) (Auto) 0.3 % Neutrophils # (Auto) 3.26 K/uL (1.4-6.5) Lymphocytes # (Auto) 2.28 K/uL (1.2-3.4) Monocytes # (Auto) 0.41 K/uL (0.11-0.59) Eosinophils # (Auto) 0.93 K/uL (0-0.5) Basophils # (Auto) 0.02 K/uL (0-0.2) RDW Standard Deviation 53.5 fL (36.4-46.3) RDW Coefficient of Variation 16.0 % (11.5-14.5) Immature Granulocyte % (Auto) 0.1 % Immature Granulocyte # (Auto) 0.01 K/uL (0.00-0.02) Erythrocyte Sedimentation Rate 31 mm/hr (0-14) Anion Gap 5.0 mmol/L (3-11) Est Creatinine Clear Calc Drug Dose 77.8 ml/min Estimated GFR () 114.7 Estimated GFR (Non- 98.9 BUN/Creatinine Ratio 17.4 (10-20) Calcium Level 8.4 mg/dl (8.5-10.1) Total Bilirubin 0.2 mg/dl (0.2-1) Direct Bilirubin 0.1 mg/dl (0-0.2) Aspartate Amino Transf (AST/SGOT) 19 U/L (15-37) Alanine Aminotransferase (ALT/SGPT) 17 U/L (12-78) Alkaline Phosphatase 143 U/L (45-117) Pro-B-Type Natriuretic Peptide 3518 pg/ml (0-900) Total Protein 6.0 gm/dl (6.4-8.2) Albumin 1.8 gm/dl (3.4-5.0) Lipase 145 U/L (73-393) Lactic Acid Level 1.2 mmol/L (0.4-2.0) Urine Color YELLOW Urine Appearance CLOUDY (CLEAR) Urine pH 5.5 (4.5-7.5) Urine Specific [place] 1.014 (1.000-1.030) Urine Protein TRACE (NEG) Urine Glucose (UA) NEG (NEG) Urine Ketones NEG (NEG) Urine Occult Blood 1+ (NEG) Urine Nitrite POS (NEG) Urine Bilirubin NEG (NEG) Urine Urobilinogen NEG (NEG) Urine Leukocyte Esterase LARGE (NEG) Urine WBC (Auto) >30 /hpf (0-5) Urine RBC (Auto) 5-10 /hpf (0-4) Urine Hyaline Casts (Auto) 10-30 /lpf (0-5) Urine Epithelial Cells (Auto) 0-5 /lpf (0-5) Urine Bacteria (Auto) 1+ (NEG) Venous Blood pH 7.37 (7.36-7.41) Venous Blood Partial Pressure CO2 47 mmHg (38.0-50.0) Venous Blood Partial Pressure O2 39 mmHg Venous Blood HCO3 26 mmol/L Venous Blood Oxygen Saturation 71.7 % Venous Blood Base Excess 0.7 mEq/L Test 10/19/17 15:58 Influenza Type A (RT-PCR) Neg for Influ A (NEG) Influenza Type B (RT-PCR) Neg for Influ B (NEG) Laboratory results reviewed by me Medications Administered Medications (Trade) Dose Ordered Sig/Fabricio Route Start Time Stop Time Status Last Admin Dose Admin Sodium Chloride 1,000 ml @ 999 mls/hr Q1H1M STAT IV 10/19/17 14:38 10/19/17 15:38 DC 10/19/17 15:00 999 MLS/HR Piperacillin Sod/ Tazobactam Sod (Zosyn Iv) 4.5 gm NOW STAT IV 10/19/17 16:41 10/19/17 16:44 DC 10/19/17 16:47 4.5 GM Vancomycin HCl 1000 mg/Sodium Chloride 270 ml @ 125 mls/hr NOW STAT IV 10/19/17 17:15 10/19/17 19:24 DC 10/19/17 17:49 125 MLS/HR ECG Per My Interpretation Indication: SOB/dyspnea Rate (beats per minute): 79 Rhythm: normal sinus Findings: no acute ischemic change, other (normal axis) ED Course 1437: The patient was evaluated in room C11B. A complete history and physical exam was performed. 1651: Upon reexamination, the patient was stable. I discussed the test results and treatment plan with him. The patient will be evaluated for further management. 1657: I discussed the patient with NOHELIA Sanchez hospitalist - He will evaluate the patient for further treatment. Medical Decision I reviewed the patient's past medical history, medications, and the nursing notes as described above. Differential diagnosis: Etiologies such as viral syndrome, otitis, pharyngitis, pneumonia, influenza, meningitis, urinary tract infection, sepsis, bacteremia, as well as others were entertained. The patient is a 67-year-old gentleman with a complicated past medical history spinal abscess and subsequent paralysis in June who presents emergency department for worsening feverishness and chills over the past couple of days per hpi. On arrival the patient is fatigued appearing and uncomfortable but no acute distress, afebrile, with new oxygen requirement given 91% on room air but otherwise stable vital signs. EKG unremarkable. Chest x-ray bibasilar opacities that could be consistent with pneumonia. UA grossly positive for UTI in setting of indwelling Mckeon catheter. WBC and lactate within normal limits. However, given the patient's complicated history in the setting of infectious symptoms including oxygen requirement will treat for pneumonia and UTI with broad-spectrum antibiotics. Case was discussed with NOHELIA Sanchez hospitalist, who will admit the patient for further management. Medication Reconcilliation Current Medication List: was personally reviewed by me Blood Pressure Screening Patient's blood pressure: Elevated blood pressure Referred to hospitalist. Consults Time Called: 1654 Consulting Physician: NOHELIA Sanchez hospitalist Returned Call: [phone] I discussed the patient with him - He will evaluate the patient for further treatment. Impression Primary Impression: UTI (urinary tract infection) Additional Impression: Pneumonia Scribe Attestation The scribe's documentation has been prepared under my direction and personally reviewed by me in its entirety. I confirm that the note above accurately reflects all work, treatment, procedures, and medical decision making performed by me. Departure Information Dispostion Being Evaluated By Hospitalist Referrals William Hudson D.O. (PCP) Patient Instructions My [facility] Problem Qualifiers
--- NOTE | 2017-10-19 19:50 | DIAGNOSTIC IMAGING REPORT ---
(RENAL)RETROPERITON COMP HISTORY: 67 years-old Male eval for hydro or renal stones acute bilateral flank pain COMPARISON: CT abdomen and pelvis 07/10/2017 TECHNIQUE: Multiple real-time sonographic images of the kidneys and urinary bladder were obtained assessing grayscale appearance and color flow FINDINGS: The right kidney measures 10.9 x 5.9 x 5.6 cm. Mild cortical thinning. No renal calculi or hydronephrosis. Mildly exophytic 1.3 cm hypoechoic lesion suggesting benign cyst is noted along the superior pole right kidney. The left kidney measures 9.9 x 6.5 x 5.5 cm and is not well seen secondary to patient positioning. Mild cortical thinning. No left-sided renal calculi right arthrosis. Partially decompressed or bladder lumen with Mckeon catheter in place. Suggested minimal layering debris within the bladder lumen. IMPRESSION: 1. Mild cortical thinning of the bilateral kidneys without renal calculi or hydronephrosis. 2. Mckeon catheter within a partially decompressed bladder lumen. Suggestion of mild urinary bladder debris. Correlate with urinalysis. The above report was generated using voice recognition software. It may contain grammatical, syntax or spelling errors. Electronically signed by: Charlie Sosa M.D. 10/19/2017 7:49 PM Dictated Date/Time: 10/19/2017 7:47 PM
[2017-10-19] MEDS ORDERED: IV FLUIDS COMPLETED PRN (20:00)
[2017-10-19] MEDS ORDERED: FUROSEMIDE INJ 40 MG in SYRINGE 0 ML IV ONE (20:15)
[2017-10-19 20:30] VITALS: BP 148/74; PULSE 69; TEMP 36.8; Ht 170.2 cm; Wt 89.1 kg
[2017-10-19] MEDS ORDERED: OLANZAPINE 5 MG TAB PO SCH (21:00)
[2017-10-19] MEDS ORDERED: DICLOXACILLIN SODIUM 250 MG CAP PO SCH (21:00)
[2017-10-19 22:03] LABS: INR 1.1 (0.9-1.1)
[2017-10-19] MEDS: LORAZEPAM 0.5 MG TAB PO SCH (22:10)
[2017-10-19] MEDS: VANCOMYCIN IV 1,250 MG in SODIUM CHLORIDE 0.9% 250ML 250 ML IV SCH (22:14)
[2017-10-19] MEDS: ENOXAPARIN 40 MG/0.4 ML SYR SC SCH (22:32)
[2017-10-19 23:35] VITALS: BP 147/81; PULSE 75; TEMP 37.1; O2SAT 94
[2017-10-19] MEDS: PIPERACILL/TAZOBAC IV 3.375 GM in DEXTROSE 5% 100ML 100 ML IV SCH (23:38)
[2017-10-19 23:44] VITALS: BP 118/71; PULSE 75; TEMP 36.9; O2SAT 93
[2017-10-20] MEDS ORDERED: TRAZODONE HCL 50 MG TAB PO ONE (01:45)
[2017-10-20 04:00] VITALS: BP 150/74; PULSE 78; TEMP 36.7; O2SAT 92
[2017-10-20 05:36] LABS: HEMATOCRIT 29.7 % (42-52); HEMOGLOBIN 9.4 g/dL (14.0-18.0); MEAN CELL VOLUME 90.8 fL (80-100); MEAN CORPUSCULAR HEMOGLOBIN 28.7 pg (25-34); MEAN CORPUSCULAR HGB CONC 31.6 g/dl (32-36); MEAN PLATELET VOLUME 8.9 fL (7.4-10.4); PLATELET COUNT 207 K/uL (130-400); RED CELL DISTRIBUTION WIDTH CV 15.9 % (11.5-14.5); RED CELL DISTRIBUTION WIDTH SD 53.2 fL (36.4-46.3); WHITE BLOOD COUNT 6.36 K/uL (4.8-10.8)
[2017-10-20 06:09] LABS: BLOOD UREA NITROGEN 11 mg/dl (7-18); CALCIUM 8.1 mg/dl (8.5-10.1); CARBON DIOXIDE 27 mmol/L (21-32); CREATININE 0.69 mg/dl (0.60-1.40); GLUCOSE 71 mg/dl (70-99); POTASSIUM 3.2 mmol/L (3.5-5.1); SODIUM 143 mmol/L (136-145)
[2017-10-20 07:31] VITALS: BP 162/82; PULSE 85; TEMP 37.1; O2SAT 92
--- NOTE | 2017-10-20 07:48 | Progress Note ---
Subjective Date of Service: October 20, 2017. Subjective pt feels slightly better, he has negative us of kidneys, did have some lower K+ with diuresis, troponin have been negative Problem List Medical Problems: (1) Acute blood loss anemia Status: Acute (2) JORDAN (acute kidney injury) Status: Acute (3) Hypokalemia Status: Acute (4) Hypovolemic shock Status: Acute (5) Pneumonia Status: Acute (6) Sepsis Status: Acute (7) Spinal abscess Status: Acute Surgical Problems: (1) S/P laminectomy Status: Acute Review of Systems Constitutional: No fever, No chills, No weakness, No fatigue Respiratory: No cough, No shortness of breath, No dyspnea on exertion Cardiac: No chest pain, No orthopnea, No edema Abdomen: No pain, No nausea, No vomiting Male : No dysuria, No urinary frequency, No incontinence Psychiatric: + depression symptoms, + anhedonism Objective Vital Signs Date Time Temp Pulse Resp B/P (MAP) Pulse Ox O2 Delivery O2 Flow Rate FiO2 10/20/17 04:00 36.7 78 21 150/74 (99) 92 Room Air 10/20/17 04:00 Room Air 10/20/17 00:00 Room Air 10/19/17 23:44 36.9 75 18 118/71 (87) 93 Room Air 10/19/17 23:35 37.1 75 19 147/81 (103) 94 Room Air 10/19/17 20:30 36.8 69 20 148/74 Room Air 10/19/17 19:29 84 20 149/76 97 10/19/17 17:44 81 23 144/77 97 Nasal Cannula 2.0 10/19/17 16:49 86 22 138/73 98 Nasal Cannula 2.0 10/19/17 15:55 82 22 154/77 97 Nasal Cannula 2.0 10/19/17 15:03 81 23 138/76 97 Nasal Cannula 2.0 10/19/17 14:20 95 Nasal Cannula 2.0 10/19/17 14:20 78 10/19/17 14:05 36.8 89 23 145/77 95 Nasal Cannula 2.0 10/19/17 14:05 95 Nasal Cannula 2.0 Physical Exam General Appearance: WD/WN, + moderate distress Eyes: normal inspection, sclerae normal Respiratory/Chest: chest non-tender, lungs clear, + decreased breath sounds ( bases) Cardiovascular: regular rate, rhythm, no murmur Abdomen: normal bowel sounds, non tender, soft Extremities: + pedal edema, + swelling Neurologic/Psychiatric: alert, oriented x 3 Laboratory Results Last 24 Hours Test 10/19/17 14:00 10/19/17 14:50 10/19/17 15:05 10/19/17 15:13 White Blood Count 6.91 K/uL Red Blood Count 3.45 M/uL Hemoglobin 10.2 g/dL Hematocrit 31.2 % Mean Corpuscular Volume 90.4 fL Mean Corpuscular Hemoglobin 29.6 pg Mean Corpuscular Hemoglobin Concent 32.7 g/dl Platelet Count 256 K/uL Mean Platelet Volume 9.5 fL Neutrophils (%) (Auto) 47.2 % Lymphocytes (%) (Auto) 33.0 % Monocytes (%) (Auto) 5.9 % Eosinophils (%) (Auto) 13.5 % Basophils (%) (Auto) 0.3 % Neutrophils # (Auto) 3.26 K/uL Lymphocytes # (Auto) 2.28 K/uL Monocytes # (Auto) 0.41 K/uL Eosinophils # (Auto) 0.93 K/uL Basophils # (Auto) 0.02 K/uL RDW Standard Deviation 53.5 fL RDW Coefficient of Variation 16.0 % Immature Granulocyte % (Auto) 0.1 % Immature Granulocyte # (Auto) 0.01 K/uL Erythrocyte Sedimentation Rate 31 mm/hr Sodium Level 143 mmol/L Potassium Level 3.7 mmol/L Chloride Level 110 mmol/L Carbon Dioxide Level 28 mmol/L Anion Gap 5.0 mmol/L Blood Urea Nitrogen 12 mg/dl Creatinine 0.69 mg/dl Est Creatinine Clear Calc Drug Dose 77.8 ml/min Estimated GFR () 114.7 Estimated GFR (Non- 98.9 BUN/Creatinine Ratio 17.4 Random Glucose 81 mg/dl Calcium Level 8.4 mg/dl Total Bilirubin 0.2 mg/dl Direct Bilirubin 0.1 mg/dl Aspartate Amino Transf (AST/SGOT) 19 U/L Alanine Aminotransferase (ALT/SGPT) 17 U/L Alkaline Phosphatase 143 U/L Troponin I < 0.015 ng/ml Pro-B-Type Natriuretic Peptide 3518 pg/ml Total Protein 6.0 gm/dl Albumin 1.8 gm/dl Lipase 145 U/L Lactic Acid Level 1.2 mmol/L Urine Color YELLOW Urine Appearance CLOUDY Urine pH 5.5 Urine Specific Emery 1.014 Urine Protein TRACE Urine Glucose (UA) NEG Urine Ketones NEG Urine Occult Blood 1+ Urine Nitrite POS Urine Bilirubin NEG Urine Urobilinogen NEG Urine Leukocyte Esterase LARGE Urine WBC (Auto) >30 /hpf Urine RBC (Auto) 5-10 /hpf Urine Hyaline Casts (Auto) 10-30 /lpf Urine Epithelial Cells (Auto) 0-5 /lpf Urine Bacteria (Auto) 1+ Venous Blood pH 7.37 Venous Blood Partial Pressure CO2 47 mmHg Venous Blood Partial Pressure O2 39 mmHg Venous Blood HCO3 26 mmol/L Venous Blood Oxygen Saturation 71.7 % Venous Blood Base Excess 0.7 mEq/L Test 10/19/17 15:58 10/19/17 21:27 10/19/17 22:51 10/20/17 05:23 Influenza Type A (RT-PCR) Neg for Influ A Influenza Type B (RT-PCR) Neg for Influ B Prothrombin Time 11.1 SECONDS Prothromb Time International Ratio 1.1 Troponin I < 0.015 ng/ml < 0.015 ng/ml White Blood Count 6.36 K/uL Red Blood Count 3.27 M/uL Hemoglobin 9.4 g/dL Hematocrit 29.7 % Mean Corpuscular Volume 90.8 fL Mean Corpuscular Hemoglobin 28.7 pg Mean Corpuscular Hemoglobin Concent 31.6 g/dl RDW Standard Deviation 53.2 fL RDW Coefficient of Variation 15.9 % Platelet Count 207 K/uL Mean Platelet Volume 8.9 fL Sodium Level 143 mmol/L Potassium Level 3.2 mmol/L Chloride Level 111 mmol/L Carbon Dioxide Level 27 mmol/L Anion Gap 5.0 mmol/L Blood Urea Nitrogen 11 mg/dl Creatinine 0.69 mg/dl Est Creatinine Clear Calc Drug Dose 119.3 ml/min Estimated GFR () 114.7 Estimated GFR (Non- 98.9 BUN/Creatinine Ratio 16.1 Random Glucose 71 mg/dl Calcium Level 8.1 mg/dl Assessment and Plan 67-year-old male presents with shortness of breath with a prehospital history of hypertension and fever concerns for infectious source could be lung or urine , previous history of MSSA infection from his back with lower extremity paralysis because of it Infectious disease, the patient typically takes dicloxacillin suppressive therapy this will be held as he was started on vancomycin and Zosyn. Blood cultures are pending. Urine culture also. A renal ultrasound because of his history of kidney stones, has ruled out obstructive uropathy We will consult infectious disease. A transthoracic echocardiogram pending due to concern for heart failure Regarding the clinical presentation of possible heart failure, with his previous staph bacteremia concern for valvular competence will be undertaken. 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
[2017-10-20] MEDS: MIDODRINE 2.5 MG TAB PO SCH ×3 (09:00→16:12)
[2017-10-20] MEDS: POTASSIUM CHLR 10 MEQ / WTR 100 ML IV SCH ×3 (09:09→12:25)
[2017-10-20] MEDS: PIPERACILL/TAZOBAC IV 3.375 GM in DEXTROSE 5% 100ML 100 ML IV SCH ×3 (09:10→23:13)
[2017-10-20] MEDS: VANCOMYCIN IV 1,250 MG in SODIUM CHLORIDE 0.9% 250ML 250 ML IV SCH ×2 (09:10→16:47)
[2017-10-20] MEDS: FUROSEMIDE INJ 20 MG in SYRINGE 0 ML IV SCH (09:16)
[2017-10-20] MEDS: POTASSIUM CHLORIDE 20 MEQ TABCR PO SCH ×3 (09:22→20:43)
[2017-10-20] MEDS: LACTOBACILLUS ACIDOPHILUS (FLORANEX) TAB PO SCH (09:24)
[2017-10-20] MEDS: PANTOprazole SOD 40 MG TAB PO SCH (09:24)
[2017-10-20] MEDS: SERTRALINE HCL 50 MG TAB PO SCH (09:25)
--- NOTE | 2017-10-20 10:11 | Pharmacy Progress Note ---
Pharmacy Abx Initial Consult Date of Service October 20, 2017. Pharmacy Dosing Scope Date of Consult: 10/19/17 Consultation requested by: Dr. Mills Pharmacy is consulted to initiate Vancomycin + Zosyn IV dosing therapy, order appropriate labs and adjust drug dose/frequency. Subjective The patient is a 67 year old male admitted on October 19, 2017 at 17:38. Objective Height (Feet): 5 Height (Inches): 7.00 Weight (Kilograms): 101.000 Vital Signs (Past 12Hrs) Vital Signs Past 12 Hours Date Time Temp Pulse Resp B/P (MAP) Pulse Ox O2 Delivery O2 Flow Rate FiO2 10/20/17 07:31 37.1 85 20 162/82 (108) 92 Room Air 10/20/17 04:00 36.7 78 21 150/74 (99) 92 Room Air 10/20/17 04:00 Room Air 10/20/17 00:00 Room Air 10/19/17 23:44 36.9 75 18 118/71 (87) 93 Room Air 10/19/17 23:35 37.1 75 19 147/81 (103) 94 Room Air Lab Results (24Hrs) Laboratory Tests (24 Hours) Test 10/19/17 14:00 10/19/17 14:50 10/20/17 05:23 Erythrocyte Sedimentation Rate 31 mm/hr (0-14) H White Blood Count 6.91 K/uL (4.8-10.8) 6.36 K/uL (4.8-10.8) Red Blood Count 3.45 M/uL (4.7-6.1) L Hemoglobin 10.2 g/dL (14.0-18.0) L Hematocrit 31.2 % (42-52) L Mean Corpuscular Volume 90.4 fL (80-100) Mean Corpuscular Hemoglobin 29.6 pg (25-34) Mean Corpuscular Hemoglobin Concent 32.7 g/dl (32-36) Platelet Count 256 K/uL (130-400) Mean Platelet Volume 9.5 fL (7.4-10.4) Neutrophils (%) (Auto) 47.2 % Lymphocytes (%) (Auto) 33.0 % Monocytes (%) (Auto) 5.9 % Eosinophils (%) (Auto) 13.5 % Basophils (%) (Auto) 0.3 % Neutrophils # (Auto) 3.26 K/uL (1.4-6.5) Lymphocytes # (Auto) 2.28 K/uL (1.2-3.4) Monocytes # (Auto) 0.41 K/uL (0.11-0.59) Eosinophils # (Auto) 0.93 K/uL (0-0.5) H Basophils # (Auto) 0.02 K/uL (0-0.2) Lactic Acid Level 1.2 mmol/L (0.4-2.0) Micro Results Date/Time Source Procedure Growth Status 10/19/17 14:50 Blood Blood Culture Pending Received 10/19/17 14:50 Blood Blood Culture Pending Received 10/19/17 15:05 Urine,Catheterized Urine Culture Pending Received Risk Factors for Resistance * Resident in a [facility] or extended-care facility * Hospitalization for 48 hours or more within the past 90 days * History of infection with a multidrug-resistant organism: MSSA back infection June 2017 * Antimicrobial use within the last 90 days: Chronic dicloxacillin for suppressive therapy indefinitely Assessment & Plan Assessment 67 year old male initiated on IV Vancomycin + ZOsyn for possible pneumonia vs UTI. Plan Vancomycin IV * Loading dose given in ED: 1000 mg (10.5 mg/kg) of note, this was an insufficient loading dose because weight was incorrect in the computer. It was listed as 52kg instead of 92 kg * Maintenance dose: 1250 mg IV (13 mg/kg) every 10 hours gave initial maintenance dose early (only 4 hrs after initial "load" to serve as a modified loading dose * Goal trough level for Pulmonary/UTI : 10 to 20 mcg/mL depending on site of infection and c/s * Trough level ordered for 10/21/17 @ 0400 (prior to 4th maintenance dose) * Piperacillin/tazobactam * 4.5 g bolus administered over 30 minutes, then 3.375 g IV extended infusion every 8 hours for CrCl greater than 20 mL/min Pharmacy will continue to follow and will adjust dose/frequency as necessary. Thank you.
[2017-10-20 11:06] VITALS: BP 162/89; PULSE 82; TEMP 37; O2SAT 93
--- NOTE | 2017-10-20 13:55 | ECHOCARDIOGRAM REPORT ---
*NOTICE TO RECEIVING [employer]Y This information is strictly Confidential and protected under [place] law. [place] law prohibits you from making any further disclosure of this information unless further disclosure is expressly permitted by the written consent of the person to whom it pertains or is authorized by law. A general authorization for the release of medical or other information is not sufficient for this purpose. Hospital accepts no responsibility if the information is made available to any other person, INCLUDING THE PATIENT. Interpretation Summary * Name: KEEGAN LEAL Study Date: 10/20/2017 06:18 AM BP: 150/74 mmHg * Patient Location: C.2T\S\E219\S\1 HR: 78 * : 1950 (M/d/yyyy) Gender: Male Height: 67 in * Age: 67 yrs Ethnicity: CA Weight: 115 lb * Ordering Physician: Ramin Mills * Referring Physician: William Hudson D.O. * Performed By: Anisha Villegas RDCS * * Reason For Study: CHF * BSA: 1.6 m2 * -- Conclusions -- * Left ventricular systolic function is normal. * No regional wall motion abnormalities noted. * Ejection Fraction = 65-70%. * There is mild concentric left ventricular hypertrophy. * Grade I diastolic dysfunction, (abnormal relaxation pattern). * No significant valvular pathology. Procedure Details * A complete two-dimensional transthoracic echocardiogram was performed (2D, M-mode, Doppler and color flow Doppler). * The study was technically difficult. * There were technical limitations due to patient'spoor positioning Left Ventricle * The left ventricle is grossly normal size. * There is mild concentric left ventricular hypertrophy. * Ejection Fraction = 65-70%. * Left ventricular systolic function is normal. * No regional wall motion abnormalities noted. Right Ventricle * The right ventricle is not well visualized. * The right ventricular systolic function is normal as assessed by tricuspid annular plane systolic excursion (TAPSE) (normal >1.5 cm). Atria * The left atrium is mildly dilated. * Right atrium not well visualized. * There is no evidence of atrial septal defect, but resolution does not allow assessment for a patent foramen ovale. Mitral Valve * The mitral valve is grossly normal. * There is no mitral valve stenosis. * Significant mitral regurgitation is absent. Tricuspid Valve * The tricuspid valve is not well visualized, but is grossly normal. * There is no tricuspid stenosis. * Significant tricuspid regurgitation is absent. Aortic Valve * The aortic valve is not well visualized. * The aortic valve opens well. * No hemodynamically significant valvular aortic stenosis. * There is no significant aortic regurgitation. Pulmonic Valve * The pulmonary valve is not well seen, but the Doppler examination is normal without significant regurgitation or stenosis. Great Vessels * Borderline aortic root dilatation. * The pulmonary is not well visualized. Pericardium/Pleural * There is no pericardial effusion. Great Vessels * Normal inferior vena cava size and collapsability with sniff indicates a normal right atrial pressure of 3 mmHg Left Ventricular Diastolic Function * Grade I diastolic dysfunction, (abnormal relaxation pattern). MMode 2D Measurements and Calculations IVSd 1.9 cm IVSs 2.0 cm LVIDd 3.9 cm LVIDs 2.5 cm LVPWd 1.6 cm LVPWs 1.5 cm IVS/LVPW 1.2 FS 36.7 % EDV(Teich) 65.7 ml ESV(Teich) 21.6 ml EF(Teich) 67.2 % EDV(cubed) 59.0 ml ESV(cubed) 15.0 ml EF(cubed) 74.6 % % IVS thick 2.2 % % LVPW thick -5.85 % LV mass(C)d 295.2 grams LV mass(C)dI 184.7 grams/m\S\2 LV mass(C)s 164.8 grams LV mass(C)sI 103.1 grams/m\S\2 SV(Teich) 44.1 ml SI(Teich) 27.6 ml/m\S\2 SV(cubed) 44.0 ml SI(cubed) 27.6 ml/m\S\2 ACS 1.1 cm LA dimension 3.6 cm LVAd ap4 41.7 cm\S\2 LVLd ap4 9.7 cm EDV(MOD-sp4) 145.4 ml EDV(sp4-el) 151.4 ml LVAs ap4 22.9 cm\S\2 LVLs ap4 8.4 cm ESV(MOD-sp4) 50.6 ml ESV(sp4-el) 52.9 ml EF(MOD-sp4) 65.2 % EF(sp4-el) 65.0 % LVAd ap2 27.2 cm\S\2 LVLd ap2 8.1 cm EDV(MOD-sp2) 74.1 ml EDV(sp2-el) 77.7 ml LVAs ap2 14.8 cm\S\2 LVLs ap2 6.2 cm ESV(MOD-sp2) 27.4 ml ESV(sp2-el) 29.6 ml EF(MOD-sp2) 63.1 % EF(sp2-el) 62.0 % LVLd %diff -20.87 % EDV(MOD-bp) 114.5 ml LVLs %diff -34.94 % ESV(MOD-bp) 41.9 ml EF(MOD-bp) 63.4 % LVLs apical 2.2 cm SV(MOD-sp4) 94.8 ml SI(MOD-sp4) 59.3 ml/m\S\2 SV(MOD-sp2) 46.7 ml SI(MOD-sp2) 29.2 ml/m\S\2 SV(MOD-bp) 72.6 ml SI(MOD-bp) 45.4 ml/m\S\2 SV(sp4-el) 98.4 ml SI(sp4-el) 61.6 ml/m\S\2 SV(sp2-el) 48.2 ml SI(sp2-el) 30.1 ml/m\S\2 Doppler Measurements and Calculations MV E max michael 71.5 cm/sec MV A max michael 71.5 cm/sec MV E/A 1.0 MV dec time 0.34 sec Ao V2 max 135.5 cm/sec Ao max PG 7.3 mmHg Ao max PG (full) 3.0 mmHg LV V1 max PG 4.4 mmHg LV V1 max 104.3 cm/sec PA V2 max 84.1 cm/sec PA max PG 2.8 mmHg
[2017-10-20 15:42] VITALS: BP 167/84; PULSE 84; TEMP 36.7; O2SAT 93
[2017-10-20 19:25] VITALS: BP 165/82; PULSE 77; TEMP 36.7; O2SAT 92
[2017-10-20] MEDS: OLANZAPINE 5 MG TAB PO SCH (20:43)
[2017-10-20] MEDS: LORAZEPAM 0.5 MG TAB PO SCH (20:43)
[2017-10-20] MEDS: ENOXAPARIN 40 MG/0.4 ML SYR SC SCH (20:44)
[2017-10-20 23:56] VITALS: BP 148/74; PULSE 87; TEMP 36.9; O2SAT 96
[2017-10-21] VITALS (7 sets, daily range): BP systolic 115–153; BP diastolic 68–78; PULSE 75–82; TEMP 36.6–37.1; O2SAT 90–97
[2017-10-21] MEDS ORDERED: VANCOMYCIN TROUGH ONE (03:30)
[2017-10-21 03:53] LABS: CREATININE 0.82 mg/dl (0.60-1.40); POTASSIUM 3.8 mmol/L (3.5-5.1)
[2017-10-21] MEDS: VANCOMYCIN IV 1,250 MG in SODIUM CHLORIDE 0.9% 250ML 250 ML IV SCH (04:20)
[2017-10-21] MEDS: MIDODRINE 2.5 MG TAB PO SCH ×2 (07:32→16:13)
[2017-10-21] MEDS: PIPERACILL/TAZOBAC IV 3.375 GM in DEXTROSE 5% 100ML 100 ML IV SCH ×2 (08:20→18:17)
[2017-10-21] MEDS: LACTOBACILLUS ACIDOPHILUS (FLORANEX) TAB PO SCH (08:21)
[2017-10-21] MEDS: PANTOprazole SOD 40 MG TAB PO SCH (08:21)
[2017-10-21] MEDS: POTASSIUM CHLORIDE 20 MEQ TABCR PO SCH ×2 (08:21→08:22)
[2017-10-21] MEDS: FUROSEMIDE INJ 20 MG in SYRINGE 0 ML IV SCH (08:21)
[2017-10-21] MEDS: SERTRALINE HCL 50 MG TAB PO SCH (08:21)
[2017-10-21] MEDS: ACETAMINOPHEN 325 MG TAB PO PRN (10:46)
--- NOTE | 2017-10-21 15:16 | Progress Note ---
Subjective Date of Service: October 21, 2017. Subjective pt seems to be having issues clearing secretions, will have speech therapy evaluate, still issues with severe anxiety, concerns for escalated depression. will have psychiatry consult, I did personally discuss this with patient and he is open to it concerns about fitness of home environment for ongoing care will have physiatry consult Problem List Medical Problems: (1) Acute blood loss anemia Status: Acute (2) JORDAN (acute kidney injury) Status: Acute (3) Hypokalemia Status: Acute (4) Hypovolemic shock Status: Acute (5) Pneumonia Status: Acute (6) Sepsis Status: Acute (7) Spinal abscess Status: Acute Surgical Problems: (1) S/P laminectomy Status: Acute Review of Systems Constitutional: + weakness, + fatigue, No fever, No chills Respiratory: + cough, + shortness of breath, No dyspnea on exertion Cardiac: No chest pain, No edema Abdomen: No pain, No nausea, No vomiting Male : No dysuria, No urinary frequency, No incontinence Psychiatric: No depression symptoms, No anhedonism, No anxiety Objective Vital Signs Date Time Temp Pulse Resp B/P (MAP) Pulse Ox O2 Delivery O2 Flow Rate FiO2 10/21/17 12:00 Room Air 10/21/17 11:16 36.9 82 18 132/77 (95) 91 Nasal Cannula 2.0 10/21/17 08:30 93 Room Air 10/21/17 08:00 Room Air 10/21/17 06:21 37.1 76 19 149/73 (98) 95 Nasal Cannula 2.0 10/21/17 04:42 36.8 79 19 125/71 (89) 97 Nasal Cannula 2.0 10/21/17 04:00 Room Air 10/21/17 00:00 Room Air 10/20/17 23:56 36.9 87 19 148/74 (98) 96 Nasal Cannula 2.0 10/20/17 20:00 Room Air 10/20/17 19:25 36.7 77 19 165/82 (109) 92 Room Air 10/20/17 16:00 Room Air 10/20/17 15:42 36.7 84 18 167/84 (111) 93 Room Air Physical Exam General Appearance: WD/WN, + moderate distress Eyes: normal inspection, sclerae normal Neck: supple, no JVD Respiratory/Chest: + decreased breath sounds, + accessory muscle use Cardiovascular: regular rate, rhythm, no murmur Abdomen: non tender, soft Extremities: + pedal edema, + swelling Neurologic/Psychiatric: alert, oriented x 3 Laboratory Results Last 24 Hours Test 10/20/17 17:31 10/21/17 03:19 Troponin I < 0.015 ng/ml Sodium Level 143 mmol/L Potassium Level 3.8 mmol/L Chloride Level 112 mmol/L Carbon Dioxide Level 31 mmol/L Anion Gap 0.0 mmol/L Blood Urea Nitrogen 8 mg/dl Creatinine 0.82 mg/dl Est Creatinine Clear Calc Drug Dose 100.4 ml/min Estimated GFR () 106.8 Estimated GFR (Non- 92.1 BUN/Creatinine Ratio 9.9 Random Glucose 77 mg/dl Calcium Level 8.0 mg/dl Vancomycin Level Trough 29.3 mcg/ml Assessment and Plan 67-year-old male presents with shortness of breath with a prehospital history of hypertension and fever concerns for infectious source could be lung or urine , previous history of MSSA infection from his back with lower extremity paralysis because of it Infectious disease, the patient typically takes dicloxacillin suppressive therapy this will be held as he was started on vancomycin and Zosyn. Blood cultures are pending. Urine culture shows gram negative and pseudomonas, pending final sensitivities, Vancomycin stopped 10/21. A renal ultrasound because of his history of kidney stones, has ruled out obstructive uropathy, consult infectious disease. A transthoracic echocardiogram does not show significant systolic issues or valvular anomalies, but mild type I diastolic dysfunction The patient has no signs or symptoms of acute coronary syndrome Regarding his urine out let obstruction of the chronic Mckeon catheter will maintain this at this time, uti is poa Regarding medications for his bilateral lower extremity paralysis or paraplegia will maintain his Lorazepam for spasticity, we attempted to stop zyprexa and he had a rough night, he also states his anxiety is worsened for him, have added wellbutrin and will have psychiatry consult He does have a history of asthma 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
[2017-10-21] MEDS: ENOXAPARIN 40 MG/0.4 ML SYR SC SCH (20:39)
[2017-10-21] MEDS: OLANZAPINE 5 MG TAB PO SCH (20:39)
[2017-10-21] MEDS: LORAZEPAM 0.5 MG TAB PO SCH (20:45)
[2017-10-22] VITALS (8 sets, daily range): BP systolic 111–166; BP diastolic 66–75; PULSE 73–94; TEMP 36.7–37; O2SAT 91–97
[2017-10-22] MEDS: PIPERACILL/TAZOBAC IV 3.375 GM in DEXTROSE 5% 100ML 100 ML IV SCH ×2 (00:09→08:38)
[2017-10-22] MEDS: ACETAMINOPHEN 325 MG TAB PO PRN (01:20)
[2017-10-22 06:51] LABS: HEMATOCRIT 29.1 % (42-52); MEAN CORPUSCULAR HEMOGLOBIN 28.8 pg (25-34); MEAN CORPUSCULAR HGB CONC 30.9 g/dl (32-36); MEAN PLATELET VOLUME 9.1 fL (7.4-10.4); PLATELET COUNT 217 K/uL (130-400); RED CELL DISTRIBUTION WIDTH CV 16.1 % (11.5-14.5); RED CELL DISTRIBUTION WIDTH SD 54.8 fL (36.4-46.3); WHITE BLOOD COUNT 6.23 K/uL (4.8-10.8)
[2017-10-22 07:18] LABS: CALCIUM 8.1 mg/dl (8.5-10.1); CREATININE 0.84 mg/dl (0.60-1.40); POTASSIUM 3.5 mmol/L (3.5-5.1)
[2017-10-22] MEDS: MIDODRINE 2.5 MG TAB PO SCH ×2 (08:37→15:57)
[2017-10-22] MEDS: LACTOBACILLUS ACIDOPHILUS (FLORANEX) TAB PO SCH (08:39)
[2017-10-22] MEDS: PANTOprazole SOD 40 MG TAB PO SCH (08:39)
[2017-10-22] MEDS: SERTRALINE HCL 50 MG TAB PO SCH (08:39)
[2017-10-22] MEDS: POTASSIUM CHLORIDE 20 MEQ TABCR PO SCH (08:40)
[2017-10-22] MEDS: FUROSEMIDE INJ 20 MG in SYRINGE 0 ML IV SCH (10:46)
[2017-10-22] MEDS ORDERED: LEVOFLOXACIN 750 MG TAB PO SCH (16:00)
--- NOTE | 2017-10-22 16:18 | Progress Note ---
Subjective Date of Service: October 22, 2017. Subjective Pt evaluation today including: conversation w/ patient, physical exam, chart review, lab review, review of studies, review of inpatient medication list Doing fair, no fever and chill, eating okay, paralyzed from below the waist which is not new Problem List Medical Problems: (1) Acute blood loss anemia Status: Acute (2) JORDAN (acute kidney injury) Status: Acute (3) Hypokalemia Status: Acute (4) Hypovolemic shock Status: Acute (5) Pneumonia Status: Acute (6) Sepsis Status: Acute (7) Spinal abscess Status: Acute Surgical Problems: (1) S/P laminectomy Status: Acute Review of Systems Constitutional: + weakness, + fatigue, No fever, No chills, No sweats, No weight loss, No problem reported Eyes: No worsening of vision, No eye pain, No redness, No discharge, No diplopia ENT: No hearing loss, No unusual epistaxis, No nasal symptoms, No sore throat, No tinnitus, No dental problems, No trouble swallowing Respiratory: No cough, No sputum, No wheezing, No shortness of breath, No dyspnea on exertion, No dyspnea at rest, No hemoptysis Cardiac: No chest pain, No orthopnea, No PND, No edema, No claudication, No palpitations Abdomen: No pain, No nausea, No vomiting, No diarrhea, No constipation Musculoskeletal: No joint pain, No muscle pain, No swelling, No calf pain Male : No dysuria, No urinary frequency, No incontinence, No nocturia more than once/night, No slowing stream, No hematuria Neurologic: + paralysis, + weakness, + problem reported (Patient has been bedridden prior to his hospitalization), No memory loss, No numbness/tingling, No vertigo, No balance problems Psychiatric: No depression symptoms, No anhedonism, No anxiety, No insomnia, No substance abuse Heme: No abnormal bleeding/bruising, No clotting problems, No swollen lymph nodes, No night sweats Endo: No fatigue, No excessive thirst, No excessive urination Skin: No rash, No itch, No new/changing skin lesions, No color change, No bleeding Objective Vital Signs Date Time Temp Pulse Resp B/P (MAP) Pulse Ox O2 Delivery O2 Flow Rate FiO2 10/22/17 14:46 36.9 73 20 166/74 (104) 92 10/22/17 14:40 97 Room Air 10/22/17 14:03 36.7 74 16 97 2.0 10/22/17 12:00 Room Air 10/22/17 11:38 36.7 74 16 121/67 (85) 97 10/22/17 08:00 Room Air 10/22/17 08:00 Room Air 10/22/17 06:48 36.9 82 18 135/75 (95) 91 Room Air 10/22/17 04:03 37.0 75 18 127/71 (89) 91 Room Air 10/22/17 04:00 Room Air 10/21/17 23:59 Room Air 10/21/17 23:49 36.8 81 18 116/69 (85) 91 10/21/17 20:00 Room Air 10/21/17 19:11 36.8 79 20 153/78 (103) 92 Room Air Physical Exam General Appearance: WD/WN, no apparent distress Eyes: normal inspection, PERRL, EOMI, sclerae normal ENT: normal ENT inspection, hearing grossly normal, pharynx normal Neck: supple, no adenopathy, thyroid normal, no JVD, no carotid bruits, trachea midline Respiratory/Chest: chest non-tender, normal breath sounds, no respiratory distress, no accessory muscle use, + decreased breath sounds Cardiovascular: regular rate, rhythm, no edema, no gallop, no JVD, no murmur Abdomen: normal bowel sounds, non tender, soft, no organomegaly, no pulsatile mass Extremities: normal range of motion, non-tender, normal inspection, no pedal edema, no calf tenderness, normal capillary refill, pelvis stable Neurologic/Psychiatric: oral and maxillofacial surgeon II-XII nml as tested, alert, normal mood/affect, oriented x 3, + motor weakness (From waist below which is not new) Skin: normal color, warm/dry, no rash, + pertinent finding (Patient denies any open wound) Lymphatic: no adenopathy Laboratory Results Last 24 Hours Test 10/22/17 06:39 White Blood Count 6.23 K/uL Red Blood Count 3.13 M/uL Hemoglobin 9.0 g/dL Hematocrit 29.1 % Mean Corpuscular Volume 93.0 fL Mean Corpuscular Hemoglobin 28.8 pg Mean Corpuscular Hemoglobin Concent 30.9 g/dl RDW Standard Deviation 54.8 fL RDW Coefficient of Variation 16.1 % Platelet Count 217 K/uL Mean Platelet Volume 9.1 fL Sodium Level 143 mmol/L Potassium Level 3.5 mmol/L Chloride Level 108 mmol/L Carbon Dioxide Level 30 mmol/L Anion Gap 5.0 mmol/L Blood Urea Nitrogen 7 mg/dl Creatinine 0.84 mg/dl Est Creatinine Clear Calc Drug Dose 93.0 ml/min Estimated GFR () 105.7 Estimated GFR (Non- 91.2 BUN/Creatinine Ratio 8.4 Random Glucose 73 mg/dl Calcium Level 8.1 mg/dl Assessment and Plan 67-year-old male presents admitted on October 19, 2017 with shortness of breath and fever concerns for infectious source could be lung or urine, previous history of MSSA infection from his back with lower extremity paralysis Klebsiella and Pseudomonas UTI, Possible pulmonary infection upon admission, will repeat chest x-ray he was started on vancomycin and Zosyn. Blood cultures are pending. Urine culture shows Klebsiella and pseudomonas, Has changed to Levaquin per sensitivity, Levaquin also able to cover pulmonary infection if needed mild type I diastolic dysfunction, no signs or symptoms of acute coronary syndrome Bilateral lower extremity paralysis or paraplegia will maintain his Lorazepam for spasticity will attempted to stop zyprexa have added wellbutrin Psychiatry service is seeing patient, will follow up recommendation history of asthma, stable will maintain his Advair with as needed albuterol Bowel movement control problem from his paralyzed, he reported PCP has plan to request Dr. Soria consultation for option of colostomy, I agreed to request Dr. Soria to see patient DVT prevention is Lovenox therapy Patient is a full code possible discharge Continued [facility] stay due to: multiple IV medications needed Discharge planning: home
--- NOTE | 2017-10-22 16:49 | DIAGNOSTIC IMAGING REPORT ---
CHEST 2 VIEWS ROUTINE CLINICAL HISTORY: Follow-up possible pneumonia pneumonia COMPARISON STUDY: 10/19/2017. FINDINGS: Moderate cardiomegaly. Small bilateral pleural effusions. Stable postoperative changes thoracolumbar spine. . Suggest components of congestive failure progressive from the prior study. IMPRESSION: Congestive heart failure slightly progressive from the prior exam. The above report was generated using voice recognition software. It may contain grammatical, syntax or spelling errors. Electronically signed by: Jett James M.D. 10/22/2017 4:48 PM Dictated Date/Time: 10/22/2017 4:47 PM
--- NOTE | 2017-10-22 16:57 | Psychiatric Consultation ---
Consultation Date of Consultation October 22, 2017. Identifying Data Ronen Levi is a 67-year-old male who presented to the ED with "chills" and fever. Concern for UTI and pneumonia. Pt has a PMH of CHF and paralysis. Psychiatric consult requested due to depression and recent paralysis. Chief Complaint "I've just been having a hard time adjusting to it all. It's been hard letting things go". History of Present Illness Ronen Levi is a 67-year-old male who experienced paralysis following an infection s/p spinal surgery. Pt reports depression to his primary medical team and pt was seen on psychiatric consult service to assess these concerns. Pt states he has been having difficulty with mood and anxiety since the loss of function associated with his paralysis. Pt states his has had to care for him and this has been difficult on them both. Pt states he experiences increased anxiety in the evenings, which has made it difficulty for him to fall and stay asleep. Pt reports decreased appetite as well. Pt describes feelings of hopelessness, but is not actively suicidal. Denies struggling with SI or formulation of plan. Pt reports stability on sertraline and bupropion for several years. He believes he had been taking 50mg of sertraline which was increased to 75mg about 3 weeks ago during his rehabilitation stay at [facility]. Pt states he believes he has been on bupropion in the past, though I believe it was recently restarted during this hospitalization. Pt reports he was prescribed Zyprexa 5mg 3 weeks ago during this stay as well for "an anxiety attack". He denies history of psychotic events around that time period. Pt states he struggles with sleep and feels that his primary concern is a [id number] sleep medication that will assist with more relaxed and regular sleep. Pt denies SI/HI, A/V hallucinations, paranoia, any, OCD, PTSD, eating disorder , and other psychosis. Past Psychiatric History Current OP Treatment: psychiatrist (Dr. Hicks) Prior OP Treatment: therapist (unsure of name) Prior Psych Hospitalizations: none Access to a Gun: No Suicide Attempts: No Past Medication Trials Per patient - Wellbutrin - Zoloft Past Medical/Surgical History History of Concussion/Seizure: No Allergies Allergies: Coded Allergies: No Known Drug Allergy (Verified Allergy, Unknown, ., 07/10/17) POLLEN (Verified Allergy, Unknown, HAY FEVER, 12/5/16) NSAIDs (Verified Adverse Reaction, Unknown, doesn't take had gastric bypass, 07/10/17) Home Medications Scheduled Calcium W/ Magnesium (Calcium/Magnesium), 1 TAB PO QAM Cholecalciferol (Vitamin D3), 2 CAP PO QAM Cyanocobalamin (Vitamin B12), 1 TAB PO DAILY Dicloxacillin Sodium (Dynapen), 250 MG PO QID Ferrous Sulfate (Ferrous Sulfate), 325 MG PO BID Lorazepam (Lorazepam), 0.25 MG PO HS Midodrine Hcl (Midodrine Hcl), 5 MG PO BID Olanzapine (Olanzapine), 5 MG PO HS Pantoprazole (Pantoprazole Sodium), 40 MG PO DAILY Potassium Ext Rel (Klor-Con), 20 MEQ PO DAILY Probiotic Product (Florajen3), 1 CAP PO DAILY Sertraline HCl (Sertraline HCl), 75 MG PO DAILY Scheduled PRN Acetaminophen (Tylenol), 1,000 MG PO Q6 PRN for Pain Albuterol Hfa (Ventolin Hfa), 2-4 PUFFS INH Q6H PRN for Shortness of Breath Fluticasone Prop/Salmeterol (Advair Diskus 250-50 Mcg/Dose), 1 PUFF INH BID PRN for SOB/Wheezing Family History No pertinent family history History of Suicide: No History of Substance Abuse: No Psychiatric History: No Alcohol Use Alcohol Use In Past 12 Months: No Smoking Use Smoking Status: Never Smoker Substance History Denies use of illicit substances. Personal History Lives in: [place], [place] with his Education: advanced degree Work History: Retired Dentist Relationship History: Children: 3 adult children Legal History: none Psychological Trauma History: Denies Hx Traumatic Event Review of Systems Psych: denies symptoms other than stated above Constitutional: reports fever and "chills" leading to admission Cardiovascular: denied Respiratory: reports cough in mucous GI: denied Neurologic: reports paralysis inferior to the nipple-line Remainder of 10 body systems also reviewed and denied other than noted above. Examination Vital Signs Vital Signs Past 12 Hours Date Time Temp Pulse Resp B/P (MAP) Pulse Ox O2 Delivery O2 Flow Rate FiO2 10/22/17 14:46 36.9 73 20 166/74 (104) 92 10/22/17 14:40 97 Room Air 10/22/17 14:03 36.7 74 16 97 2.0 10/22/17 12:00 Room Air 10/22/17 11:38 36.7 74 16 121/67 (85) 97 10/22/17 08:00 Room Air 10/22/17 08:00 Room Air 10/22/17 06:48 36.9 82 18 135/75 (95) 91 Room Air Laboratory Results Last 24 Hours Test 10/22/17 06:39 White Blood Count 6.23 K/uL Red Blood Count 3.13 M/uL Hemoglobin 9.0 g/dL Hematocrit 29.1 % Mean Corpuscular Volume 93.0 fL Mean Corpuscular Hemoglobin 28.8 pg Mean Corpuscular Hemoglobin Concent 30.9 g/dl RDW Standard Deviation 54.8 fL RDW Coefficient of Variation 16.1 % Platelet Count 217 K/uL Mean Platelet Volume 9.1 fL Sodium Level 143 mmol/L Potassium Level 3.5 mmol/L Chloride Level 108 mmol/L Carbon Dioxide Level 30 mmol/L Anion Gap 5.0 mmol/L Blood Urea Nitrogen 7 mg/dl Creatinine 0.84 mg/dl Est Creatinine Clear Calc Drug Dose 93.0 ml/min Estimated GFR () 105.7 Estimated GFR (Non- 91.2 BUN/Creatinine Ratio 8.4 Random Glucose 73 mg/dl Calcium Level 8.1 mg/dl Mental Examination During interview pt is: alert and oriented, cooperative Appearance: appropriately dressed (in hospital gown), appropriately groomed Eye contact is: good Motor behavior is: no abnormal motor movements (observed while layng in bed) Speech: normal in rate, rhythm & volume Affect: depressed, tearful Mood is: depressed, anxious Thought process: goal directed, clear, coherent Thought content: reality based without delusions Suicidal thought are: denied, Plan: denied, Intent: denied Homicidal thoughts are: denied Hallucinations: denies auditory, denies visual Cognition: memory grossly intact, attention grossly intact, language grossly intact Intelligence estimated to be: above average Insight: fair Judgement: fair Impression / Recommendations Impression 67-year-old male with recent paralysis struggling with increased depression as a result of loss of function. Pt reports guilt in regard to his having to care for him. Pt states he has noticed heightened severity of anxiety, especially in the evening hours and at night. Pt's son is a psychiatrist who discussed possible options for [id number] medication with the patient. Reviewed both hydroxyzine and trazodone with the patient, who reports increased agitation with Benadryl in the past. Due to this risk of excitement prior to bedtime, decided in favor of trazodone. Will start 50mg qHS beginning this evening. Risks, benefits, side effects, and alternatives discussed. Pt verbalized understanding and is agreeable to this plan. Reviewed dosing of Wellbutrin, as it can be activating in some patients. Discussed plan to schedule BID dosing at 0700 and 1400 to avoid activation at bedtime. Pt agreeable to this change. Will favor dose increase in sertraline over Wellbutrin for the same reason. Reviewed recommendation to increase sertraline to 100mg daily, which patient was agreeable to at this time. Pt reports regular visits with Dr. Hicks. He denies active SI/HI or other psychiatric concerns warranting inpatient mental health treatment. Outpatient follow-up and ongoing management would be the least restrictive setting for the patient to continue with his psychiatric care. Risk Factors Assessment Male: Yes : Yes /single/: No Access to guns: No Health problems: Yes Mental Health Diagnoses: Yes Substance use disorders: No Previous attempt: No Previous psychiatric stay: No Hopelessness: Yes Smoker: No Protective Factors Assessment : Yes Employed: No Stable relationships: Yes Supportive family: Yes Good rapport with provider: Yes Recommendations (1) Depression 5 - Increase sertraline to 100mg qAM to target worsening mood and anxiety - Wellbutrin dosing adjusted to BID at 0700 and 1400. - Will start trazodone 50mg qHS to target insomnia and reports of anxiety interfering with sleep - Follow-up for ongoing management with Dr. Hicks once discharged. Dr. Snow has personally been involved in the review of the above case and development of recommendations.
[2017-10-22] MEDS: ENOXAPARIN 40 MG/0.4 ML SYR SC SCH (21:16)
[2017-10-22] MEDS: LORAZEPAM 0.5 MG TAB PO SCH (21:17)
[2017-10-22] MEDS: OLANZAPINE 5 MG TAB PO SCH (21:18)
[2017-10-22] MEDS ORDERED: TRAZODONE HCL 50 MG TAB PO SCH (22:00)
[2017-10-23] VITALS (8 sets, daily range): BP systolic 135–167; BP diastolic 70–88; PULSE 75–102; TEMP 36.7; O2SAT 92–96
[2017-10-23] MEDS ORDERED: hydrOXYzine HCL 25 MG TAB PO STA (02:50)
[2017-10-23] MEDS: ACETAMINOPHEN 325 MG TAB PO PRN (04:12)
[2017-10-23] MEDS: FUROSEMIDE INJ 20 MG in SYRINGE 0 ML IV SCH ×2 (07:14→20:35)
[2017-10-23] MEDS: MIDODRINE 2.5 MG TAB PO SCH ×2 (07:54→17:32)
[2017-10-23] MEDS: LACTOBACILLUS ACIDOPHILUS (FLORANEX) TAB PO SCH (07:56)
[2017-10-23] MEDS: POTASSIUM CHLORIDE 20 MEQ TABCR PO SCH (07:57)
[2017-10-23] MEDS: SERTRALINE HCL 100 MG TAB PO SCH (07:58)
[2017-10-23] MEDS: hydrOXYzine HCL 25 MG TAB PO PRN (08:53)
[2017-10-23] MEDS: PANTOprazole SOD 40 MG TAB PO SCH (08:53)
[2017-10-23] MEDS: LEVOFLOXACIN 750 MG TAB PO SCH (11:00)
[2017-10-23] MEDS ORDERED: NURSING VERBAL MED ORDER ONE ×2 (15:00→17:45)
[2017-10-23] MEDS ORDERED: hydrOXYzine HCL 25 MG TAB PO ONE (15:15)
[2017-10-23] MEDS ORDERED: FUROSEMIDE INJ 20 MG in SYRINGE 0 ML IV ONE (15:45)
[2017-10-23] MEDS: ALBUT/IPRATROP 3MG/0.5MG NEB 3 ML VIAL INH SCH ×2 (16:11→19:45)
--- NOTE | 2017-10-23 17:34 | Progress Note ---
Subjective Date of Service: October 23, 2017. Subjective Pt evaluation today including: conversation w/ patient, physical exam, chart review, lab review, review of studies, conversation w/ product development consultant, review of inpatient medication list Patient report anxious, shortness of breath, some wheezing, otherwise doing okay Problem List Medical Problems: (1) Acute blood loss anemia Status: Acute (2) JORDAN (acute kidney injury) Status: Acute (3) Hypokalemia Status: Acute (4) Hypovolemic shock Status: Acute (5) Pneumonia Status: Acute (6) Sepsis Status: Acute (7) Spinal abscess Status: Acute Surgical Problems: (1) S/P laminectomy Status: Acute Review of Systems Constitutional: + weakness, + fatigue, No fever, No chills, No sweats, No weight loss, No problem reported Eyes: No worsening of vision, No eye pain, No redness, No discharge, No diplopia ENT: No hearing loss, No unusual epistaxis, No nasal symptoms, No sore throat, No tinnitus, No dental problems, No trouble swallowing Respiratory: + cough, + shortness of breath, + dyspnea on exertion, No sputum, No wheezing, No dyspnea at rest, No hemoptysis Cardiac: No chest pain, No orthopnea, No PND, No edema, No claudication, No palpitations Abdomen: No pain, No nausea, No vomiting, No diarrhea, No constipation Musculoskeletal: No joint pain, No muscle pain, No swelling, No calf pain Male : No dysuria, No urinary frequency, No incontinence, No nocturia more than once/night, No slowing stream, No hematuria Neurologic: + weakness (Paralyzed below the waist), No memory loss, No paralysis, No numbness/tingling, No vertigo, No balance problems Psychiatric: No depression symptoms, No anhedonism, No anxiety, No insomnia, No substance abuse Heme: No abnormal bleeding/bruising, No clotting problems, No swollen lymph nodes, No night sweats Endo: No fatigue, No excessive thirst, No excessive urination Skin: No rash, No itch, No new/changing skin lesions, No color change, No bleeding Objective Vital Signs Date Time Temp Pulse Resp B/P (MAP) Pulse Ox O2 Delivery O2 Flow Rate FiO2 10/23/17 16:12 78 15 93 Room Air 10/23/17 16:10 36.7 75 20 167/88 (114) 93 Room Air 10/23/17 12:21 92 Room Air 10/23/17 08:00 96 Nasal Cannula 2.0 10/23/17 07:04 36.7 78 20 150/79 (102) 94 Nasal Cannula 2.0 10/23/17 00:00 Room Air 10/22/17 22:15 36.8 94 22 111/66 (81) 93 Room Air Physical Exam General Appearance: WD/WN, no apparent distress Eyes: normal inspection, PERRL, EOMI, sclerae normal ENT: normal ENT inspection, hearing grossly normal, pharynx normal Neck: supple, no adenopathy, thyroid normal, no JVD, no carotid bruits, trachea midline Respiratory/Chest: chest non-tender, normal breath sounds, no respiratory distress, no accessory muscle use, + decreased breath sounds, + crackles ( Occasional), + wheezing Cardiovascular: regular rate, rhythm, no edema, no gallop, no JVD, no murmur Abdomen: normal bowel sounds, non tender, soft, no organomegaly, no pulsatile mass Extremities: normal range of motion, non-tender, normal inspection, no pedal edema, no calf tenderness, normal capillary refill, pelvis stable Neurologic/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 Blood cultures are pending. Urine culture shows Klebsiella and pseudomonas, Has changed to Levaquin per sensitivity, Levaquin also able to cover pulmonary infection if needed possible acute on chronic mild type I diastolic dysfunction, no signs or symptoms of acute coronary syndrome , tried lasix 1 dose today Bilateral lower extremity paralysis or paraplegia maintain his Lorazepam for spasticity attempted to stop zyprexa have added wellbutrin Psychiatry service is seeing patient, increased trazodone, start Vistaril history of asthma, stable will maintain his Advair with as needed albuterol Bowel movement control problem from his paralyzed, he reported PCP has plan to request Dr. Soria consultation for option of colostomy, I talked to Dr. Soria, Dr. Soria recommend colorectal surgeon from [place], they have office in [place] Dr. Vasquez and Dr. Mojica: PCP please follow-up and to refer patient to them, discussed with the patient, he agreed of this plan DVT prevention is Lovenox therapy Patient is a full code possible discharge Call to patient's , update her patient's conditions and care plan answered all question, may be discharged tomorrow Continued [facility] stay due to: multiple IV medications needed Discharge planning: home
[2017-10-23] MEDS ORDERED: LORAZEPAM 0.5 MG TAB ONE (17:50)
[2017-10-23] MEDS: ENOXAPARIN 40 MG/0.4 ML SYR SC SCH (20:35)
[2017-10-23] MEDS: LORAZEPAM 0.5 MG TAB PO SCH (21:14)
[2017-10-23] MEDS: OLANZAPINE 5 MG TAB PO SCH (21:15)
[2017-10-23] MEDS ORDERED: TRAZODONE HCL 50 MG TAB PO SCH (22:00)
[2017-10-24] VITALS (12 sets, daily range): BP systolic 121–166; BP diastolic 69–91; PULSE 78–100; TEMP 36.5–37.3; O2SAT 87–97
[2017-10-24] MEDS ORDERED: hydrOXYzine HCL 25 MG TAB PO STA (02:48)
[2017-10-24] MEDS: ACETAMINOPHEN 325 MG TAB PO PRN (04:05)
[2017-10-24] MEDS ORDERED: LORAZEPAM 0.5 MG TAB PO STA ×2 (05:46→07:27)
--- NOTE | 2017-10-24 06:03 | Progress Note ---
Progress Note Date of Service October 24, 2017. Progress Note Called to see patient with significant anxiety and insomnia, and breathlessness Patient complaining of persistent wet cough - unable to expectorate due to weakness of cough/abdominal muscles. Associated with subjective dyspnea (VS all stable), fear of pneumonia and severe anxiety with 'visible shaking' per nurse Patient was seen by psych nurse - per nurse, patient discloses fear of dying/ not waking up if he falls asleep. Psych unwilling to prescribe anything due to subjective dyspnea Review of records show increase trazodone 100mg dose tonight and Vistaril 25mg given earlier today in the day. Patient states neither were effective. He discloses he was taking more lorazepam at home than previous stated ( multiple pills at night and upon waking in clinical pharmacologist, rather than through out the day). PDMP records reviewed. On exam, noted weak cough and course rhonchi bilaterally. CXR ordered, in addition to vibration vest and chest PT. Offered continuous pulse ox for peace of mind. Increased dose of Vistaril to 50mg provided short sleep, ultimately additional lorazepam 0.25mg prescribed. Patient VERY anxious. Defer further management of anxiety to primary team Resident Tracking Resident Involvement: Resident Care Provided Care Provided: Adult Hospital Medicine
--- NOTE | 2017-10-24 06:38 | DIAGNOSTIC IMAGING REPORT ---
CHEST ONE VIEW PORTABLE HISTORY: 67 years-old Male subjective dyspnea, worsening lung sounds acute dyspnea COMPARISON: Chest radiograph 10/22/2017 TECHNIQUE: Portable AP view of the chest FINDINGS: Cardiac silhouette is again enlarged. Atherosclerosis of the aorta. The lungs are hypoinflated without pneumothorax. There are small bilateral pleural effusions with hazy subsegmental bibasilar opacities. Pulmonary vascular congestion with interstitial coarsening. There is mildly improved aeration of the bilateral lungs from comparison. Bones of the chest appear grossly intact. Fusion hardware of the thoracolumbar and cervical spine is partially imaged. IMPRESSION: 1. Cardiomegaly with persistent mild pulmonary edema pattern, stable to minimally improved from comparison. 2. Small bilateral pleural effusions with bibasilar opacities favoring atelectasis. The above report was generated using voice recognition software. It may contain grammatical, syntax or spelling errors. Electronically signed by: Charlie Sosa M.D. 10/24/2017 6:37 AM Dictated Date/Time: 10/24/2017 6:35 AM
[2017-10-24] MEDS: ALBUT/IPRATROP 3MG/0.5MG NEB 3 ML VIAL INH SCH ×4 (07:10→19:12)
[2017-10-24] MEDS: MIDODRINE 2.5 MG TAB PO SCH ×3 (07:37→17:34)
[2017-10-24] MEDS: SERTRALINE HCL 100 MG TAB PO SCH ×2 (07:40→09:00)
[2017-10-24] MEDS: PANTOprazole SOD 40 MG TAB PO SCH ×2 (07:40→09:00)
[2017-10-24] MEDS: POTASSIUM CHLORIDE 20 MEQ TABCR PO SCH ×2 (07:40→09:00)
[2017-10-24] MEDS: LACTOBACILLUS ACIDOPHILUS (FLORANEX) TAB PO SCH ×2 (07:40→09:00)
[2017-10-24 08:41] LABS: HEMATOCRIT 27.9 % (42-52); HEMOGLOBIN 8.9 g/dL (14.0-18.0); MEAN CELL VOLUME 90.9 fL (80-100); MEAN CORPUSCULAR HGB CONC 31.9 g/dl (32-36); PLATELET COUNT 202 K/uL (130-400); RED CELL DISTRIBUTION WIDTH CV 15.9 % (11.5-14.5); RED CELL DISTRIBUTION WIDTH SD 53.2 fL (36.4-46.3); WHITE BLOOD COUNT 4.04 K/uL (4.8-10.8)
[2017-10-24 08:59] LABS: CALCIUM 7.9 mg/dl (8.5-10.1); CREATININE 0.81 mg/dl (0.60-1.40); PHOSPHORUS 2.8 mg/dl (2.5-4.9); POTASSIUM 2.9 mmol/L (3.5-5.1)
[2017-10-24] MEDS: FUROSEMIDE INJ 20 MG in SYRINGE 0 ML IV SCH (09:16)
--- NOTE | 2017-10-24 10:58 | Psychiatric Progress Notes ---
Progress Note Date of Service October 24, 2017. Interval History Ronen Levi is a 67-year-old male with paralysis, asthma, and congestive heart failure who presented to the ED with "chills, "shortness of breath, and fever, and was admitted to the hospitalist service with heart failure, UTI, and possible pneumonia. Psychiatric consult requested due to depression and anxiety. Chief Complaint "I think the problem is withdrawal symptoms ". Subjective Patient was seen & assessed, and chart reviewed. He was seen by the psychiatric consult service over the weekend, sertraline was increased to target mood and anxiety, and trazodone was started for sleep. Trazodone dose increased to 100 mg last night, and he has received multiple extra doses of lorazepam for anxiety. He initially reported taking lorazepam 0.25mg at bedtime , last evening became acutely anxious and stated that he had been taking a higher dose of Lorazepam. He got an extra dose of lorazepam 0.25mg last evening , and 2 doses this AM. On my assessment, he was seen with Galo Jacobson, MS4. He states his anxiety is better today, but still report constant shortness of breath and anxiety, alleviated only by Lorazepam. He states anxiety is triggered in part by shortness of breath and inability to clear his secretions, and that when he is feeling very anxious, he fears that if he falls asleep he might not wake up. He recognizes that this is irrational, and that decreased sleep negatively impacts his anxiety. He is willing to increase his trazodone further to 150 mg at bedtime. Attempted to clarify his benzodiazepine use: He states that he was started on Lorazepam when at [facility] in August , and believes he was on 0.25 mg as needed. He was continued on the medication when he returned home, and said he was taking it on average 2 times a day, but at times took 3 tabs a day. He was not sure of the dose, but reviewed PDMP, which revealed prescription on 10/03/2017 [address] 0.5 mg #[address] Ruby Pope in [place], and a second prescription 10/17/2017 for 0.5 mg #[address] William Hudson. He states he still has some left at home, and prefers to taper off of it, as he is concerned about addiction. He states he hopes to be discharged to home, although records indicate the recommendations are for inpatient rehab. Review of Systems Short of breath, difficulty clearing secretions, no hallucinations, SI or HI. Mental Status Exam During interview pt is: alert and oriented, cooperative Appearance: appropriately dressed (in hospital gown), appropriately groomed Eye contact is: fair (Keeps eyes closed much of the interview) Motor behavior is: no abnormal motor movements Speech: other (Productive and spontaneous, but short of breath and pausing every few words to breathe) Affect: anxious (Mildly) Mood is: anxious Thought process: goal directed, clear, coherent Thought content: reality based without delusions Suicidal thought are: denied Homicidal thoughts are: denied Hallucinations: denies auditory, denies visual Cognition: memory grossly intact, attention grossly intact, language grossly intact Intelligence estimated to be: above average Insight: fair Judgement: fair Impression 67-year-old male with recent paralysis struggling with increased depression and anxiety as a result of loss of function. His anxiety has worsened in the context of multiple medical problems/infections and shortness of breath, especially in the evening hours and at night. He had been overusing Lorazepam at home, and would like to taper off of it due to concerns about addiction, so was started on a lower dose here. It is very difficult to tell if he is having benzodiazepine withdrawal symptoms, as he is also struggling with CHF, possible pneumonia, and difficulty clearing his secretions, so is quite short of breath. His sertraline has been increased to target mood and anxiety, and he was continued on home doses of bupropion and olanzapine. Plan (1) Depression 10/22 - Increase sertraline to 100mg qAM to target worsening mood and anxiety - Wellbutrin dosing adjusted to BID at 0700 and 1400. - Will start trazodone 50mg qHS to target insomnia and reports of anxiety interfering with sleep - Follow-up for ongoing management with Dr. Hicks once discharged. 10/24 -Continue increased dose of sertraline, and home doses of bupropion SR and olanzapine. -Ensure follow-up scheduled with Dr. Hicks at the time of discharge, and send records for coordination of care. (2) Anxiety 10/24 -sertraline increased at the time of initial consultation. -Continue Lorazepam 0.25 mg at bedtime, and may use an additional 1 time dose if needed for anxiety. Agree with taper off this medication, due to addiction/ abuse risk, as well as risk of oversedation and aspiration. He still has some at home, so will not need a prescription at discharge, but will need instructions to taper off of it. Would suggest 0.25 mg at bedtime 1 week, then discontinue. -Increase trazodone to 150 mg nightly to target sleep, and may try a low dose of 25 mg every 6 hours as needed for anxiety. Visit Code E&M Code: 38533 Risk Factors Assessment Male: Yes : Yes /single/: No Health problems: Yes Mental Health Diagnoses: Yes Substance use disorders: No Previous attempt: No Previous psychiatric stay: No Hopelessness: Yes Smoker: No Protective Factors Assessment : Yes Employed: No Stable relationships: Yes Supportive family: Yes Good rapport with provider: Yes Data Vital Signs Last 24 Hrs: Date Time Temp Pulse Resp B/P (MAP) Pulse Ox O2 Delivery O2 Flow Rate FiO2 10/24/17 07:49 36.8 78 18 90 10/24/17 07:41 36.8 78 18 164/91 (115) 90 Room Air 10/24/17 07:11 82 16 90 Room Air 10/24/17 00:33 36.8 88 20 121/69 (86) 91 Room Air 10/24/17 00:00 Room Air 10/23/17 20:38 102 135/70 (91) 10/23/17 19:35 97 16 94 Room Air 10/23/17 16:12 78 15 93 Room Air 10/23/17 16:10 36.7 75 20 167/88 (114) 93 Room Air 10/23/17 16:00 96 Room Air 10/23/17 12:21 92 Room Air Meds Administered Last 24 Hrs: Meds Administered (Past 24Hrs) Medications (Trade) Dose Ordered Sig/Fabricio Route Start Time Stop Time Status Last Admin Dose Admin Levofloxacin (Levaquin Tab) 750 mg DAILY@11 PO 10/23/17 11:00 10/28/17 10:59 10/23/17 11:00 750 MG Levofloxacin (Levaquin Tab) 750 mg 1600 PO 10/22/17 16:00 10/22/17 16:01 DC 10/22/17 15:54 750 MG Bupropion HCl (Wellbutrin Tab) 75 mg [id number] PO 10/22/17 15:00 11/19/17 14:59 10/24/17 06:46 75 MG Sertraline HCl (Zoloft Tab) 100 mg DAILY PO 10/23/17 08:00 11/19/17 08:59 10/24/17 07:40 100 MG Trazodone HCl (Desyrel Tab) 50 mg HS PO 10/22/17 22:00 10/23/17 08:07 DC 10/22/17 21:18 50 MG Hydroxyzine HCl (Vistaril Tab) 12.5 mg NOW STAT PO 10/23/17 02:50 10/23/17 02:57 DC 10/23/17 03:10 12.5 MG Trazodone HCl (Desyrel Tab) 100 mg HS PO 10/23/17 22:00 11/21/17 21:59 10/23/17 21:15 100 MG Hydroxyzine HCl (Vistaril Tab) 25 mg Q8 PRN PO 10/23/17 08:15 11/22/17 08:14 10/23/17 08:53 25 MG Furosemide 20 mg/ Syringe 2 ml @ 4 mls/min Q12 IV 10/23/17 21:00 11/22/17 20:59 10/24/17 09:16 4 MLS/MIN Albuterol/ Ipratropium (Duoneb) 3 ml QIDR INH 10/23/17 16:00 11/22/17 15:59 10/24/17 07:10 3 ML Furosemide 20 mg/ Syringe 2 ml @ 4 mls/min 1545 ONCE IV 10/23/17 15:45 10/23/17 15:46 DC 10/23/17 16:19 4 MLS/MIN Lorazepam (Ativan Tab) 0.5 mg STK-MED ONCE .ROUTE 10/23/17 17:50 10/23/17 17:51 DC 10/23/17 17:56 0.5 MG Hydroxyzine HCl (Vistaril Tab) 50 mg NOW STAT PO 10/24/17 02:48 10/24/17 02:50 DC 10/24/17 04:08 50 MG Lorazepam (Ativan Tab) 0.25 mg NOW STAT PO 10/24/17 05:46 10/24/17 05:57 DC 10/24/17 06:46 0.25 MG Lorazepam (Ativan Tab) 0.25 mg NOW STAT PO 10/24/17 07:27 10/24/17 07:31 DC 10/24/17 07:40 0.25 MG Lab Results Last 24 Hrs: Last 24 Hours Test 10/23/17 17:46 10/24/17 08:29 Thyroid Stimulating Hormone (TSH) 4.670 uIu/ml Free Thyroxine 1.44 ng/dl White Blood Count 4.04 K/uL Red Blood Count 3.07 M/uL Hemoglobin 8.9 g/dL Hematocrit 27.9 % Mean Corpuscular Volume 90.9 fL Mean Corpuscular Hemoglobin 29.0 pg Mean Corpuscular Hemoglobin Concent 31.9 g/dl RDW Standard Deviation 53.2 fL RDW Coefficient of Variation 15.9 % Platelet Count 202 K/uL Mean Platelet Volume 9.0 fL Sodium Level 142 mmol/L Potassium Level 2.9 mmol/L Chloride Level 105 mmol/L Carbon Dioxide Level 32 mmol/L Anion Gap 5.0 mmol/L Blood Urea Nitrogen 6 mg/dl Creatinine 0.81 mg/dl Est Creatinine Clear Calc Drug Dose 94.3 ml/min Estimated GFR () 107.3 Estimated GFR (Non- 92.6 BUN/Creatinine Ratio 6.9 Random Glucose 83 mg/dl Calcium Level 7.9 mg/dl Phosphorus Level 2.8 mg/dl Magnesium Level 1.5 mg/dl
[2017-10-24] MEDS ORDERED: LORAZEPAM 1 MG TAB PO PRN (11:00)
[2017-10-24] MEDS: LEVOFLOXACIN 750 MG TAB PO SCH (11:56)
[2017-10-24] MEDS ORDERED: NURSING VERBAL MED ORDER ONE (14:00)
[2017-10-24] MEDS: POTASSIUM CHLR 10 MEQ / WTR 100 ML IV SCH ×2 (14:00→17:28)
[2017-10-24] MEDS ORDERED: POTASSIUM CHLORIDE 20 MEQ TABCR PO ONE (14:00)
[2017-10-24] MEDS: TRAZODONE HCL 50 MG TAB PO PRN (14:56)
[2017-10-24] MEDS ORDERED: MAGNESIUM SULFATE 1GM / D5W 100 ML IV STA (15:22)
--- NOTE | 2017-10-24 15:28 | Progress Note ---
Subjective Date of Service: October 24, 2017. Subjective Pt evaluation today including: conversation w/ patient, conversation w/ family , physical exam, chart review, lab review, review of studies, conversation w/ marine engineering consultant, review of inpatient medication list Was complaining above possible benzo withdrawal with anxiety chest tight and difficult breathing, he was transferred to monitored bed, this morning When I see him he was awake alert orientated, anxiety difficult breathing and chest heart is resolved, Problem List Medical Problems: (1) Acute blood loss anemia Status: Acute (2) JORDAN (acute kidney injury) Status: Acute (3) Hypokalemia Status: Acute (4) Hypovolemic shock Status: Acute (5) Pneumonia Status: Acute (6) Sepsis Status: Acute (7) Spinal abscess Status: Acute Surgical Problems: (1) S/P laminectomy Status: Acute Review of Systems Constitutional: + weakness, + fatigue, No fever, No chills, No sweats, No weight loss, No problem reported Eyes: No worsening of vision, No eye pain, No redness, No discharge, No diplopia ENT: No hearing loss, No unusual epistaxis, No nasal symptoms, No sore throat, No tinnitus, No dental problems, No trouble swallowing Respiratory: No cough, No sputum, No wheezing, No shortness of breath, No dyspnea on exertion, No dyspnea at rest, No hemoptysis Cardiac: No chest pain, No orthopnea, No PND, No edema, No claudication, No palpitations Abdomen: No pain, No nausea, No vomiting, No diarrhea, No constipation Musculoskeletal: No joint pain, No muscle pain, No swelling, No calf pain Male : No dysuria, No urinary frequency, No incontinence, No nocturia more than once/night, No slowing stream, No hematuria Neurologic: + weakness (Paralyzed been below the waist), No memory loss, No paralysis, No numbness/tingling, No vertigo, No balance problems Psychiatric: + anxiety, No depression symptoms, No anhedonism, No insomnia, No substance abuse Heme: No abnormal bleeding/bruising, No clotting problems, No swollen lymph nodes, No night sweats Endo: No fatigue, No excessive thirst, No excessive urination Skin: No rash, No itch, No new/changing skin lesions, No color change, No bleeding Objective Vital Signs Date Time Temp Pulse Resp B/P (MAP) Pulse Ox O2 Delivery O2 Flow Rate FiO2 5/9/18 15:10 37.1 85 18 166/80 (108) 90 Room Air 10/24/17 12:00 Room Air 10/24/17 11:17 36.5 80 20 143/74 (97) 90 Room Air 10/24/17 08:10 37.2 91 18 131/69 (89) 90 Room Air 10/24/17 07:49 36.8 78 18 90 10/24/17 07:41 36.8 78 18 164/91 (115) 90 Room Air 10/24/17 07:11 82 16 90 Room Air 10/24/17 00:33 36.8 88 20 121/69 (86) 91 Room Air 10/24/17 00:00 Room Air 10/23/17 20:38 102 135/70 (91) 10/23/17 19:35 97 16 94 Room Air 10/23/17 16:12 78 15 93 Room Air 10/23/17 16:10 36.7 75 20 167/88 (114) 93 Room Air 10/23/17 16:00 96 Room Air Physical Exam General Appearance: WD/WN, no apparent distress Eyes: normal inspection, PERRL, EOMI, sclerae normal ENT: normal ENT inspection, hearing grossly normal, pharynx normal Neck: supple, no adenopathy, thyroid normal, no JVD, no carotid bruits, trachea midline Respiratory/Chest: chest non-tender, lungs clear, normal breath sounds, no respiratory distress, no accessory muscle use Cardiovascular: regular rate, rhythm, no edema, no gallop, no JVD, no murmur Abdomen: normal bowel sounds, non tender, soft, no organomegaly, no pulsatile mass Extremities: non-tender, normal inspection, no pedal edema, no calf tenderness , normal capillary refill, pelvis stable 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, alert, normal mood/affect, oriented x 3, + motor weakness (Paralyzed below the waist) Skin: normal color, warm/dry, no rash Lymphatic: no adenopathy Laboratory Results Last 24 Hours Test 10/23/17 17:46 10/24/17 08:29 Thyroid Stimulating Hormone (TSH) 4.670 uIu/ml Free Thyroxine 1.44 ng/dl White Blood Count 4.04 K/uL Red Blood Count 3.07 M/uL Hemoglobin 8.9 g/dL Hematocrit 27.9 % Mean Corpuscular Volume 90.9 fL Mean Corpuscular Hemoglobin 29.0 pg Mean Corpuscular Hemoglobin Concent 31.9 g/dl RDW Standard Deviation 53.2 fL RDW Coefficient of Variation 15.9 % Platelet Count 202 K/uL Mean Platelet Volume 9.0 fL Sodium Level 142 mmol/L Potassium Level 2.9 mmol/L Chloride Level 105 mmol/L Carbon Dioxide Level 32 mmol/L Anion Gap 5.0 mmol/L Blood Urea Nitrogen 6 mg/dl Creatinine 0.81 mg/dl Est Creatinine Clear Calc Drug Dose 94.3 ml/min Estimated GFR () 107.3 Estimated GFR (Non- 92.6 BUN/Creatinine Ratio 6.9 Random Glucose 83 mg/dl Calcium Level 7.9 mg/dl Phosphorus Level 2.8 mg/dl Magnesium Level 1.5 mg/dl Assessment and Plan 67-year-old male presents admitted on October 19, 2017 with shortness of breath and fever concerns for infectious source could be lung or urine, previous history of MSSA infection from his back with lower extremity paralysis Klebsiella and Pseudomonas UTI, Possible pulmonary infection upon admission, has repeated chest x-ray, which was not remarkable for rule out pneumonia he was started on vancomycin and Zosyn. Blood cultures was negative, Klebsiella and pseudomonas UTI Has changed to Levaquin per sensitivity, Levaquin also able to cover pulmonary infection if needed possible acute on chronic mild type I diastolic dysfunction, no signs or symptoms of acute coronary syndrome , tried lasix 1 dose which was helping, will continue Lasix 10 mg p.o. daily, lisinopril 2.5 mg p.o. daily because of mild elevated blood pressure, will continue follow-up potassium and magnesium Hypomagnesemia and hypo-kalemia replaced and follow-up Bilateral lower extremity paralysis or paraplegia Anxiety, psychiatry input appreciated, patient agree with taper off this medication, due to addiction/abuse risk, as well as risk of oversedation and aspiration. Recommendation from psychiatry, he still has some at home, so will not need a prescription at discharge, but will need instructions to taper off of it. Would suggest 0.25 mg at bedtime 1 week, then discontinue. Has increase trazodone to 150 mg nightly to target sleep, and may try a low dose of 25 mg every 6 hours as needed for anxiety. history of asthma, stable will maintain his Advair with as needed albuterol Bowel movement control problem from his paralyzed, he reported PCP has plan to request Dr. Soria consultation for option of colostomy, I talked to Dr. Soria, Dr. Soria recommend colorectal surgeon from [place], they have office in [place] Dr. Vasquez and Dr. Mojica: PCP please follow-up and to refer patient to them, discussed with the patient, he agreed of this plan Hypokalemia and hypomagnesemia, replaced follow-up tomorrow morning DVT prevention is Lovenox therapy Patient is a full code possible discharge Call to patient's , update her patient's conditions and care plan answered all question, plan to discharged tomorrow Continued [facility] stay due to: multiple IV medications needed Discharge planning: home
[2017-10-24] MEDS: MAGNESIUM OXIDE 400 MG TAB PO SCH (20:24)
[2017-10-24] MEDS: OLANZAPINE 5 MG TAB PO SCH (20:25)
[2017-10-24] MEDS: ENOXAPARIN 40 MG/0.4 ML SYR SC SCH (20:25)
[2017-10-24] MEDS: LORAZEPAM 0.5 MG TAB PO SCH (20:35)
[2017-10-24] MEDS: TRAZODONE HCL 50 MG TAB PO SCH (20:49)
[2017-10-25] VITALS (16 sets, daily range): BP systolic 106–159; BP diastolic 63–80; PULSE 77–92; TEMP 36.8–37.5; O2SAT 84–100
[2017-10-25 07:08] LABS: CALCIUM 7.9 mg/dl (8.5-10.1); CREATININE 0.79 mg/dl (0.60-1.40); POTASSIUM 3.5 mmol/L (3.5-5.1)
[2017-10-25] MEDS: ALBUT/IPRATROP 3MG/0.5MG NEB 3 ML VIAL INH SCH ×4 (07:08→19:19)
[2017-10-25] MEDS: MIDODRINE 2.5 MG TAB PO SCH ×2 (09:00→18:00)
[2017-10-25] MEDS ORDERED: FUROSEMIDE 20 MG TAB PO SCH (09:00)
--- NOTE | 2017-10-25 09:34 | Progress Note ---
Subjective Date of Service: October 25, 2017. Subjective Pt evaluation today including: conversation w/ patient, physical exam, chart review, lab review, review of studies, conversation w/ aerodynamic consultant, review of inpatient medication list Voiding: haynes catheter in place Generally doing good, no complaint, anxiety is better, denies chest pain palpitation, deny wheezing Problem List Medical Problems: (1) Acute blood loss anemia Status: Acute (2) JORDAN (acute kidney injury) Status: Acute (3) Hypokalemia Status: Acute (4) Hypovolemic shock Status: Acute (5) Pneumonia Status: Acute (6) Sepsis Status: Acute (7) Spinal abscess Status: Acute Surgical Problems: (1) S/P laminectomy Status: Acute Review of Systems Constitutional: + weakness, + fatigue, No fever, No chills, No sweats, No weight loss, No problem reported Eyes: No worsening of vision, No eye pain, No redness, No discharge, No diplopia ENT: No hearing loss, No unusual epistaxis, No nasal symptoms, No sore throat, No tinnitus, No dental problems, No trouble swallowing Respiratory: No cough, No sputum, No wheezing, No shortness of breath, No dyspnea on exertion, No dyspnea at rest, No hemoptysis Cardiac: + edema, No chest pain, No orthopnea, No PND, No claudication, No palpitations Abdomen: No pain, No nausea, No vomiting, No diarrhea, No constipation Musculoskeletal: No joint pain, No muscle pain, No swelling, No calf pain Male : No dysuria, No urinary frequency, No incontinence, No nocturia more than once/night, No slowing stream, No hematuria Neurologic: + paralysis, + weakness, No memory loss, No numbness/tingling, No vertigo, No balance problems Psychiatric: No depression symptoms, No anhedonism, No anxiety, No insomnia, No substance abuse Heme: No abnormal bleeding/bruising, No clotting problems, No swollen lymph nodes, No night sweats Endo: No fatigue, No excessive thirst, No excessive urination Skin: No rash, No itch, No new/changing skin lesions, No color change, No bleeding Objective Vital Signs Date Time Temp Pulse Resp B/P (MAP) Pulse Ox O2 Delivery O2 Flow Rate FiO2 10/25/17 08:00 Nasal Cannula 3.0 10/25/17 07:44 37.0 85 18 112/63 (79) 91 Nasal Cannula 3.5 Humidified Oxygen 10/25/17 07:09 87 16 85 Room Air 10/25/17 04:00 95 Nasal Cannula 3.0 10/25/17 03:48 36.8 77 20 128/79 (95) 100 Nasal Cannula 3.0 10/25/17 00:15 37.0 89 18 159/78 (105) 92 Room Air 10/25/17 00:01 91 Nasal Cannula 3.0 10/24/17 20:13 37.3 100 18 157/78 (104) 97 Nasal Cannula 3.0 10/24/17 20:00 90 Room Air 10/24/17 19:12 93 16 87 Room Air 10/24/17 16:00 90 Room Air 10/24/17 15:19 86 16 92 Room Air 10/24/17 15:10 37.1 85 18 166/80 (108) 90 Room Air 10/24/17 12:00 Room Air 10/24/17 11:17 36.5 80 20 143/74 (97) 90 Room Air Physical Exam General Appearance: WD/WN, no apparent distress Eyes: normal inspection, PERRL, EOMI, sclerae normal ENT: normal ENT inspection, hearing grossly normal, pharynx normal Neck: supple, no adenopathy, thyroid normal, no JVD, no carotid bruits, trachea midline Respiratory/Chest: chest non-tender, lungs clear, normal breath sounds, no respiratory distress, no accessory muscle use, + decreased breath sounds, + wheezing Cardiovascular: regular rate, rhythm, no gallop, no JVD, no murmur, + pertinent finding (1-2+ edema) Abdomen: normal bowel sounds, non tender, soft, no organomegaly, no pulsatile mass Extremities: normal range of motion, non-tender, normal inspection, no pedal edema, no calf tenderness, normal capillary refill, pelvis stable, + swelling 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, no motor/sensory deficits, alert, normal mood/affect, oriented x 3 Skin: normal color, warm/dry, no rash Lymphatic: no adenopathy Laboratory Results Last 24 Hours Test 10/25/17 05:57 Sodium Level 143 mmol/L Potassium Level 3.5 mmol/L Chloride Level 107 mmol/L Carbon Dioxide Level 33 mmol/L Anion Gap 3.0 mmol/L Blood Urea Nitrogen 5 mg/dl Creatinine 0.79 mg/dl Est Creatinine Clear Calc Drug Dose 97.3 ml/min Estimated GFR () 108.5 Estimated GFR (Non- 93.6 BUN/Creatinine Ratio 6.1 Random Glucose 74 mg/dl Calcium Level 7.9 mg/dl Phosphorus Level 3.0 mg/dl Magnesium Level 1.8 mg/dl Assessment and Plan 67-year-old male presents admitted on October 19, 2017 with shortness of breath and fever concerns for infectious source could be lung or urine, previous history of MSSA infection from his back with lower extremity paralysis Later found he has klebsiella and Pseudomonas UTI, and mild acute on chronic diastolic CHF exacerbation Klebsiella and Pseudomonas UTI, Possible pulmonary infection upon admission, has repeated chest x-ray, which was not remarkable, and has rule out pneumonia he was started on vancomycin and Zosyn. Blood cultures was negative, Klebsiella and pseudomonas UTI Has changed to Levaquin per sensitivity, Levaquin also able to cover pulmonary infection if needed, antibiotic was started from admission October 19, 2017, totally 7 days will be, Today will be last day possible acute on chronic mild type I diastolic dysfunction, no signs or symptoms of acute coronary syndrome , tried lasix 1 dose 2 days ago which was helping, continue Lasix 10 mg p.o. daily, will increase to 20 mg p.o. daily Started lisinopril 2.5 mg p.o. daily because of mild elevated blood pressure, will continue follow-up potassium and magnesium Hypomagnesemia and hypo-kalemia replaced and follow-up Bilateral lower extremity paralysis or paraplegia Anxiety, psychiatry input appreciated, patient agree with taper off this medication, stable due to addiction/abuse risk, as well as risk of oversedation and aspiration. Recommendation from psychiatry, he still has some at home, so will not need a prescription at discharge, but will need instructions to taper off of it. Would suggest 0.25 mg at bedtime 1 week, then discontinue. Has increase trazodone to 150 mg nightly to target sleep, and may try a low dose of 25 mg every 6 hours as needed for anxiety. history of asthma, stable will maintain his Advair with as needed albuterol Bowel movement control problem from his paralyzed, he reported PCP has plan to request Dr. Soria consultation for option of colostomy, I talked to Dr. Soria, Dr. Soria recommend colorectal surgeon from [place], they have office in [place] Dr. Vasquez and Dr. Mojica: PCP please follow-up and to refer patient to them, discussed with the patient, he agreed of this plan Hypokalemia and hypomagnesemia, replaced follow-up tomorrow morning DVT prevention is Lovenox therapy Patient is a full code possible discharge Possible rehab, patient agreed to talk to registered nurse hh case manager and will be [facility] today Medically ready to discharge Continued [facility] stay due to: home environment unsafe for pt Discharge planning: rehab hospital
[2017-10-25] MEDS: LISINOPRIL 2.5 MG TAB PO SCH (09:35)
[2017-10-25] MEDS: LACTOBACILLUS ACIDOPHILUS (FLORANEX) TAB PO SCH (09:36)
[2017-10-25] MEDS: MAGNESIUM OXIDE 400 MG TAB PO SCH ×2 (09:36→20:36)
[2017-10-25] MEDS: PANTOprazole SOD 40 MG TAB PO SCH (09:36)
[2017-10-25] MEDS: SERTRALINE HCL 100 MG TAB PO SCH (09:36)
[2017-10-25] MEDS: POTASSIUM CHLORIDE 20 MEQ TABCR PO SCH (09:36)
[2017-10-25] MEDS: LEVOFLOXACIN 750 MG TAB PO SCH (11:40)
[2017-10-25] MEDS: hydrOXYzine HCL 25 MG TAB PO PRN (18:58)
[2017-10-25] MEDS: LORAZEPAM 0.5 MG TAB PO SCH (20:33)
[2017-10-25] MEDS: TRAZODONE HCL 50 MG TAB PO SCH (20:34)
[2017-10-25] MEDS: OLANZAPINE 5 MG TAB PO SCH (20:55)
[2017-10-25] MEDS: ENOXAPARIN 40 MG/0.4 ML SYR SC SCH (20:56)
[2017-10-26] VITALS (22 sets, daily range): BP systolic 103–165; BP diastolic 60–94; PULSE 60–99; TEMP 36.4–37.7; O2SAT 91–100
[2017-10-26] MEDS: TRAZODONE HCL 50 MG TAB PO PRN (00:51)
[2017-10-26] MEDS: ALBUT/IPRATROP 3MG/0.5MG NEB 3 ML VIAL INH SCH ×5 (01:04→18:58)
[2017-10-26] MEDS ORDERED: FUROSEMIDE INJ 20 MG in SYRINGE 0 ML IV ONE (01:30)
[2017-10-26] MEDS: LORAZEPAM 0.5 MG TAB PO PRN (02:27)
[2017-10-26] MEDS: hydrOXYzine HCL 25 MG TAB PO PRN (02:58)
[2017-10-26 04:18] LABS: HEMOGLOBIN 8.7 g/dL (14.0-18.0); MEAN CELL VOLUME 93.3 fL (80-100); MEAN CORPUSCULAR HGB CONC 31.1 g/dl (32-36); MEAN PLATELET VOLUME 9.4 fL (7.4-10.4); PLATELET COUNT 198 K/uL (130-400); RED CELL DISTRIBUTION WIDTH CV 15.6 % (11.5-14.5); RED CELL DISTRIBUTION WIDTH SD 53.4 fL (36.4-46.3); WHITE BLOOD COUNT 5.63 K/uL (4.8-10.8)
[2017-10-26 04:37] LABS: CALCIUM 7.9 mg/dl (8.5-10.1); CREATININE 0.76 mg/dl (0.60-1.40); POTASSIUM 3.2 mmol/L (3.5-5.1)
--- NOTE | 2017-10-26 04:53 | Progress Note ---
Progress Note Date of Service October 26, 2017. Progress Note Called about patient with increased O2 demands Needing 5-6L via oxymask for adequate saturation compared to previous 2L via NC Ongoing weak cough and course rhonchi bilaterally. Labs, meds and diagnostics reviewed. Noted patient did not get AM furosemide. Ordered IV furosemide 20mg stat. Output 600cc improved breathing somewhat, however patient noted to have increase somnolence. ABG ordered and showed respiratory acidosis with metabolic compensation. Bipap ordered. Will continue to monitor. Resident Tracking Resident Involvement: Resident Care Provided Care Provided: Adult Hospital Medicine
[2017-10-26] MEDS ORDERED: FUROSEMIDE 20 MG TAB PO SCH (08:00)
[2017-10-26] MEDS: MIDODRINE 2.5 MG TAB PO SCH ×2 (08:12→16:23)
[2017-10-26] MEDS: LACTOBACILLUS ACIDOPHILUS (FLORANEX) TAB PO SCH (08:13)
[2017-10-26] MEDS: PANTOprazole SOD 40 MG TAB PO SCH (08:13)
[2017-10-26] MEDS: MAGNESIUM OXIDE 400 MG TAB PO SCH ×2 (08:13→21:04)
[2017-10-26] MEDS: LISINOPRIL 2.5 MG TAB PO SCH (08:13)
[2017-10-26] MEDS: SERTRALINE HCL 100 MG TAB PO SCH (08:13)
[2017-10-26] MEDS: POTASSIUM CHLORIDE 20 MEQ TABCR PO SCH (08:14)
[2017-10-26] MEDS ORDERED: ALBUT/IPRATROP 3MG/0.5MG NEB 3 ML VIAL INH PRN (12:00)
[2017-10-26] MEDS: LEVOFLOXACIN 750 MG TAB PO SCH (13:03)
--- NOTE | 2017-10-26 16:21 | Progress Note ---
Subjective Date of Service: October 26, 2017. Subjective Pt evaluation today including: conversation w/ patient, physical exam, chart review, lab review, review of studies, conversation w/ customs consultant, review of inpatient medication list Patient was having desaturation, wheezing last night, got 1 dose of Lasix, and was put on BiPAP machine, general condition improved When I see him this morning, he was awake alert orientated, on nasal cannula 3 L /min, no alcohol previous labored breathing, some wet cough, denies chest pain Problem List Medical Problems: (1) Acute blood loss anemia Status: Acute (2) JORDAN (acute kidney injury) Status: Acute (3) Hypokalemia Status: Acute (4) Hypovolemic shock Status: Acute (5) Pneumonia Status: Acute (6) Sepsis Status: Acute (7) Spinal abscess Status: Acute Surgical Problems: (1) S/P laminectomy Status: Acute Review of Systems Constitutional: No fever, No chills, No sweats, No weight loss, No weakness, No fatigue, No problem reported Eyes: No worsening of vision, No eye pain, No redness, No discharge, No diplopia ENT: No hearing loss, No unusual epistaxis, No nasal symptoms, No sore throat, No tinnitus, No dental problems, No trouble swallowing Respiratory: + cough, + wheezing, + shortness of breath, No sputum, No dyspnea on exertion, No dyspnea at rest, No hemoptysis Cardiac: + edema, No chest pain, No orthopnea, No PND, No claudication, No palpitations Abdomen: No pain, No nausea, No vomiting, No diarrhea, No constipation Musculoskeletal: No joint pain, No muscle pain, No swelling, No calf pain Male : No dysuria, No urinary frequency, No incontinence, No nocturia more than once/night, No slowing stream, No hematuria Neurologic: No memory loss, No paralysis, No weakness, No numbness/tingling, No vertigo, No balance problems Psychiatric: No depression symptoms, No anhedonism, No anxiety, No insomnia, No substance abuse Heme: No abnormal bleeding/bruising, No clotting problems, No swollen lymph nodes, No night sweats Endo: No fatigue, No excessive thirst, No excessive urination Skin: No rash, No itch, No new/changing skin lesions, No color change, No bleeding Objective Vital Signs Date Time Temp Pulse Resp B/P (MAP) Pulse Ox O2 Delivery O2 Flow Rate FiO2 10/26/17 15:15 60 98 40 10/26/17 15:14 60 14 98 BiPAP/CPAP 40 10/26/17 15:00 36.6 76 20 165/82 (109) 100 BiPAP 10/26/17 11:46 36.4 60 24 156/94 (114) 98 BiPAP 40 10/26/17 11:32 BiPAP 10/26/17 11:10 64 17 97 BiPAP/CPAP 40 10/26/17 09:46 72 97 40 10/26/17 08:56 36.7 75 18 100 2.0 10/26/17 08:45 100 Nasal Cannula 2.0 10/26/17 08:15 100 Nasal Cannula 4.0 10/26/17 08:00 Nasal Cannula 6.0 10/26/17 08:00 100 Nasal Cannula 6.0 10/26/17 07:29 36.7 75 18 149/82 (104) 100 BiPAP 40 10/26/17 07:11 73 100 40 10/26/17 06:57 73 16 100 BiPAP/CPAP 40 10/26/17 04:56 92 100 40 10/26/17 03:44 36.7 92 24 103/60 (74) 98 Oxymask 6.0 10/26/17 03:19 99 95 Oxymask 6.0 10/26/17 01:04 88 24 91 Mask 5.0 10/26/17 01:00 Oxymask 5.0 10/25/17 23:49 37.4 92 21 106/63 (77) 88 Oxymask 5.0 10/25/17 22:04 92 24 84 Mask 4.0 10/25/17 19:19 89 16 94 Nasal Cannula 2.0 10/25/17 19:00 94 Oxymask 4.0 10/25/17 18:30 85 Nasal Cannula 2.0 Physical Exam General Appearance: WD/WN, no apparent distress Eyes: normal inspection, PERRL, EOMI, sclerae normal ENT: normal ENT inspection, hearing grossly normal, pharynx normal Neck: supple, no adenopathy, thyroid normal, no JVD, no carotid bruits, trachea midline Respiratory/Chest: chest non-tender, normal breath sounds, no respiratory distress, no accessory muscle use, + decreased breath sounds, + crackles, + rales, + rhonchi, + wheezing Cardiovascular: regular rate, rhythm, no gallop, no JVD, no murmur, + pertinent finding (2+ edema) Abdomen: normal bowel sounds, non tender, soft, no organomegaly, no pulsatile mass Extremities: normal range of motion, non-tender, normal inspection, no pedal edema, no calf tenderness, normal capillary refill, pelvis stable 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, no motor/sensory deficits, alert, normal mood/affect, oriented x 3 Skin: normal color, warm/dry, no rash Lymphatic: no adenopathy Laboratory Results Last 24 Hours Test 10/26/17 03:57 10/26/17 08:47 White Blood Count 5.63 K/uL Red Blood Count 3.00 M/uL Hemoglobin 8.7 g/dL Hematocrit 28.0 % Mean Corpuscular Volume 93.3 fL Mean Corpuscular Hemoglobin 29.0 pg Mean Corpuscular Hemoglobin Concent 31.1 g/dl RDW Standard Deviation 53.4 fL RDW Coefficient of Variation 15.6 % Platelet Count 198 K/uL Mean Platelet Volume 9.4 fL Arterial Blood pH 7.21 Arterial Blood Partial Pressure CO2 83 mmHg Arterial Blood Partial Pressure O2 84 mm/Hg Arterial Blood HCO3 33 mmol/L Arterial Blood Oxygen Saturation 92.8 % Arterial Blood Base Excess 3.3 mEq/L Arterial Blood Gas Delivery 6L Dajuan Test POSITIVE Sodium Level 140 mmol/L Potassium Level 3.2 mmol/L Chloride Level 103 mmol/L Carbon Dioxide Level 33 mmol/L Anion Gap 4.0 mmol/L Blood Urea Nitrogen 5 mg/dl Creatinine 0.76 mg/dl Est Creatinine Clear Calc Drug Dose 101.1 ml/min Estimated GFR () 110.2 Estimated GFR (Non- 95.1 BUN/Creatinine Ratio 7.0 Random Glucose 112 mg/dl Calcium Level 7.9 mg/dl Phosphorus Level 4.0 mg/dl Magnesium Level 1.9 mg/dl Pro-B-Type Natriuretic Peptide 1482 pg/ml D-Dimer 1170 ug/L FEU Assessment and Plan 67-year-old male presents admitted on October 19, 2017 with shortness of breath and fever concerns for infectious source could be lung or urine, previous history of MSSA infection from his back with lower extremity paralysis Later found he has klebsiella and Pseudomonas UTI, and mild acute on chronic diastolic CHF exacerbation Acute respiratory distress possible combined acute on chronic diastolic CHF exacerbation and history of COPD possible acute on chronic mild type I diastolic dysfunction, Missed one dose of Lasix yesterday for unknown reason Give 20 mg IV Lasix this morning, will continue 40 mg IV Lasix daily Continue lisinopril 2.5 mg p.o. daily History of COPD and history of asthma, stable will maintain his Advair with as needed albuterol Continue BiPAP, okay to off BiPAP for meals Also start oral prednisone, DuoNeb treatment because patient history of COPD currently is wheezing, Hypomagnesemia and hypo-kalemia replaced and follow-up Bilateral lower extremity paralysis or paraplegia Anxiety, psychiatry input appreciated, patient agree with taper off this medication, stable Recommendation from psychiatry, he still has some at home, so will not need a prescription at discharge, but will need instructions to taper off of it. Would suggest 0.25 mg at bedtime 1 week, then discontinue. Has increase trazodone to 150 mg nightly to target sleep, and may try a low dose of 25 mg every 6 hours as needed for anxiety. Bowel movement control problem from his paralyzed, he reported PCP has plan to request Dr. Soria consultation for option of colostomy, I talked to Dr. Soria, Dr. Soria recommend colorectal surgeon from [place], they have office in [place] Dr. Vasquez and Dr. Mojica: PCP please follow-up and to refer patient to them, discussed with the patient, he agreed of this plan Patient is a full code Patient declined to rehab, p child monitor DVT and GI prophylaxis are covered Continued [facility] stay due to: home environment unsafe for pt Discharge planning: home
[2017-10-26] MEDS: TRAZODONE HCL 50 MG TAB PO SCH (21:02)
[2017-10-26] MEDS: LORAZEPAM 0.5 MG TAB PO SCH (21:02)
[2017-10-26] MEDS: ENOXAPARIN 40 MG/0.4 ML SYR SC SCH (21:03)
[2017-10-26] MEDS: OLANZAPINE 5 MG TAB PO SCH (21:05)
[2017-10-27] VITALS (14 sets, daily range): BP systolic 132–165; BP diastolic 69–85; PULSE 68–93; TEMP 37–37.7; O2SAT 95–100
[2017-10-27 07:02] LABS: BASO % 0.2 %; BASO ABS # 0.01 K/uL (0-0.2); EOS % 0.6 %; EOS ABS # 0.03 K/uL (0-0.5); HEMOGLOBIN 8.5 g/dL (14.0-18.0); IG# 0.02 K/uL (0.00-0.02); MEAN CELL VOLUME 90.6 fL (80-100); MEAN CORPUSCULAR HEMOGLOBIN 28.5 pg (25-34); MEAN CORPUSCULAR HGB CONC 31.5 g/dl (32-36); MEAN PLATELET VOLUME 9.2 fL (7.4-10.4); MONO % 8.5 %; MONO ABS # 0.41 K/uL (0.11-0.59); NEUT % 65.3 %; NEUT ABS # 3.13 K/uL (1.4-6.5); PLATELET COUNT 188 K/uL (130-400); RED CELL DISTRIBUTION WIDTH CV 15.5 % (11.5-14.5)
[2017-10-27] MEDS: ALBUT/IPRATROP 3MG/0.5MG NEB 3 ML VIAL INH SCH ×4 (07:17→19:05)
[2017-10-27 07:23] LABS: CALCIUM 8.3 mg/dl (8.5-10.1); CREATININE 0.84 mg/dl (0.60-1.40); POTASSIUM 3.3 mmol/L (3.5-5.1)
[2017-10-27 07:27] LABS: PHOSPHORUS 2.3 mg/dl (2.5-4.9)
[2017-10-27] MEDS ORDERED: FUROSEMIDE INJ 40 MG in SYRINGE 0 ML IV SCH (08:00)
[2017-10-27] MEDS: POTASSIUM CHLORIDE 20 MEQ TABCR PO SCH (08:11)
[2017-10-27] MEDS: LACTOBACILLUS ACIDOPHILUS (FLORANEX) TAB PO SCH (08:12)
[2017-10-27] MEDS: PANTOprazole SOD 40 MG TAB PO SCH (08:12)
[2017-10-27] MEDS: SERTRALINE HCL 100 MG TAB PO SCH (08:12)
[2017-10-27] MEDS: LISINOPRIL 2.5 MG TAB PO SCH (08:13)
[2017-10-27] MEDS: MAGNESIUM OXIDE 400 MG TAB PO SCH ×2 (08:13→21:13)
[2017-10-27] MEDS: MIDODRINE 2.5 MG TAB PO SCH ×2 (08:19→15:24)
[2017-10-27] MEDS ORDERED: POTASSIUM CHLORIDE 10 MEQ TABCR PO ONE (09:30)
[2017-10-27] MEDS: LEVOFLOXACIN 750 MG TAB PO SCH (09:38)
--- NOTE | 2017-10-27 15:47 | Progress Note ---
Subjective Date of Service: October 27, 2017. Subjective Pt evaluation today including: conversation w/ patient, conversation w/ family , physical exam, chart review, lab review, review of studies, conversation w/ business sales consultant, review of inpatient medication list Feeling much better, off BiPAP machine, however still has some wet cough and wheezing rales Problem List Medical Problems: (1) Acute blood loss anemia Status: Acute (2) JORDAN (acute kidney injury) Status: Acute (3) Hypokalemia Status: Acute (4) Hypovolemic shock Status: Acute (5) Pneumonia Status: Acute (6) Sepsis Status: Acute (7) Spinal abscess Status: Acute Surgical Problems: (1) S/P laminectomy Status: Acute Review of Systems Constitutional: + weight loss, No fever, No chills, No sweats, No weakness, No fatigue, No problem reported Eyes: No worsening of vision, No eye pain, No redness, No discharge, No diplopia ENT: No hearing loss, No unusual epistaxis, No nasal symptoms, No sore throat, No tinnitus, No dental problems, No trouble swallowing Respiratory: + cough, No sputum, No wheezing, No shortness of breath, No dyspnea on exertion, No dyspnea at rest, No hemoptysis Cardiac: + edema, No chest pain, No orthopnea, No PND, No claudication, No palpitations Abdomen: No pain, No nausea, No vomiting, No diarrhea, No constipation Musculoskeletal: No joint pain, No muscle pain, No swelling, No calf pain Male : No dysuria, No urinary frequency, No incontinence, No nocturia more than once/night, No slowing stream, No hematuria Neurologic: + paralysis, No memory loss, No weakness, No numbness/tingling, No vertigo, No balance problems Psychiatric: No depression symptoms, No anhedonism, No anxiety, No insomnia, No substance abuse Heme: No abnormal bleeding/bruising, No clotting problems, No swollen lymph nodes, No night sweats Endo: No fatigue, No excessive thirst, No excessive urination Skin: No rash, No itch, No new/changing skin lesions, No color change, No bleeding Objective Vital Signs Date Time Temp Pulse Resp B/P (MAP) Pulse Ox O2 Delivery O2 Flow Rate FiO2 10/27/17 15:19 78 16 100 Nasal Cannula 2.0 10/27/17 11:30 Nasal Cannula 2.0 10/27/17 11:15 30 10/27/17 11:13 72 14 100 BiPAP/CPAP 30 10/27/17 11:00 37.0 74 16 138/76 (96) 97 10/27/17 10:01 87 100 40 10/27/17 08:00 Nasal Cannula 2.0 40 10/27/17 07:17 80 16 100 Nasal Cannula 2.0 10/27/17 06:30 37.2 81 20 160/74 (102) 96 Nasal Cannula 4.0 10/27/17 04:00 37.7 68 18 165/85 (111) 97 BiPAP 10/27/17 04:00 97 BiPAP 2.0 40 10/27/17 00:25 80 98 40 10/27/17 00:01 37.4 69 14 156/82 (106) 98 BiPAP 40 10/27/17 00:01 98 BiPAP 2.0 40 10/26/17 22:45 37.7 74 16 162/83 (109) 98 BiPAP 10/26/17 21:14 84 98 40 10/26/17 20:00 100 BiPAP 2.0 40 10/26/17 19:00 37.0 79 20 153/79 (103) 100 Nasal Cannula 2.0 10/26/17 18:59 77 16 93 Nasal Cannula 2.0 10/26/17 17:01 BiPAP Physical Exam General Appearance: WD/WN, no apparent distress Eyes: normal inspection, PERRL, EOMI, sclerae normal ENT: normal ENT inspection, hearing grossly normal, pharynx normal Neck: supple, no adenopathy, thyroid normal, no JVD, no carotid bruits, trachea midline Respiratory/Chest: chest non-tender, normal breath sounds, no respiratory distress, no accessory muscle use, + decreased breath sounds, + crackles (In left lower lung,), + rales Cardiovascular: regular rate, rhythm, no edema, no gallop, no JVD, no murmur Abdomen: normal bowel sounds, non tender, soft, no organomegaly, no pulsatile mass Extremities: normal range of motion, non-tender, normal inspection, no pedal edema, no calf tenderness, normal capillary refill, pelvis stable Neurologic/Psychiatric: manager new product II-XII nml as tested, no motor/sensory deficits, alert, normal mood/affect, oriented x 3, + motor weakness (Paralyzed below the waist) Skin: normal color, warm/dry, no rash Lymphatic: no adenopathy Laboratory Results Last 24 Hours Test 10/27/17 06:52 White Blood Count 4.80 K/uL Red Blood Count 2.98 M/uL Hemoglobin 8.5 g/dL Hematocrit 27.0 % Mean Corpuscular Volume 90.6 fL Mean Corpuscular Hemoglobin 28.5 pg Mean Corpuscular Hemoglobin Concent 31.5 g/dl Platelet Count 188 K/uL Mean Platelet Volume 9.2 fL Neutrophils (%) (Auto) 65.3 % Lymphocytes (%) (Auto) 25.0 % Monocytes (%) (Auto) 8.5 % Eosinophils (%) (Auto) 0.6 % Basophils (%) (Auto) 0.2 % Neutrophils # (Auto) 3.13 K/uL Lymphocytes # (Auto) 1.20 K/uL Monocytes # (Auto) 0.41 K/uL Eosinophils # (Auto) 0.03 K/uL Basophils # (Auto) 0.01 K/uL RDW Standard Deviation 52.0 fL RDW Coefficient of Variation 15.5 % Immature Granulocyte % (Auto) 0.4 % Immature Granulocyte # (Auto) 0.02 K/uL Red Blood Cell Morphology Unremarkable Arterial Blood pH 7.42 Arterial Blood Partial Pressure CO2 50 mmHg Arterial Blood Partial Pressure O2 74 mm/Hg Arterial Blood HCO3 32 mmol/L Arterial Blood Oxygen Saturation 92.5 % Arterial Blood Base Excess 7.2 mEq/L Arterial Blood Gas Delivery 2 L Dajuan Test POS Sodium Level 141 mmol/L Potassium Level 3.3 mmol/L Chloride Level 106 mmol/L Carbon Dioxide Level 31 mmol/L Anion Gap 4.0 mmol/L Blood Urea Nitrogen 9 mg/dl Creatinine 0.84 mg/dl Est Creatinine Clear Calc Drug Dose 94.7 ml/min Estimated GFR () 105.7 Estimated GFR (Non- 91.2 BUN/Creatinine Ratio 10.5 Random Glucose 81 mg/dl Calcium Level 8.3 mg/dl Phosphorus Level 2.3 mg/dl Magnesium Level 2.0 mg/dl Assessment and Plan 67-year-old male presents admitted on October 19, 2017 with shortness of breath and fever concerns for infectious source could be lung or urine, previous history of MSSA infection from his back with lower extremity paralysis Later found he has klebsiella and Pseudomonas UTI, and mild acute on chronic diastolic CHF exacerbation Acute respiratory distress possible combined acute on chronic diastolic CHF exacerbation and history of COPD asthma possible acute on chronic mild type I diastolic dysfunction, Stable improving, will continue 40 mg IV Lasix daily Continue lisinopril 2.5 mg p.o. daily History of COPD and history of asthma, stable will maintain his Advair, continue DuoNeb Will be off BiPAP today and watch overnight Continue oral prednisone, DuoNeb treatment because patient history of COPD currently is wheezing, Hypomagnesemia and hypo-kalemia replaced and follow-up Bilateral lower extremity paralysis or paraplegia is not new, stable Anxiety, psychiatry input appreciated, patient agree with taper off this medication, stable Recommendation from psychiatry, he still has some at home, so will not need a prescription at discharge, but will need instructions to taper off of it. Would suggest 0.25 mg at bedtime 1 week, then discontinue. Has increase trazodone to 150 mg nightly to target sleep, and may try a low dose of 25 mg every 6 hours as needed for anxiety. Bowel movement control problem from his paralyzed, he reported PCP has plan to request Dr. Soria consultation for option of colostomy, I talked to Dr. Soria, Dr. Soria recommend colorectal surgeon from [place], they have office in [place] Dr. Vasquez and Dr. 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 stay due to: home environment unsafe for pt Discharge planning: home
[2017-10-27] MEDS: LORAZEPAM 0.5 MG TAB PO SCH (21:12)
[2017-10-27] MEDS: ENOXAPARIN 40 MG/0.4 ML SYR SC SCH (21:13)
[2017-10-27] MEDS: TRAZODONE HCL 50 MG TAB PO SCH (21:13)
[2017-10-27] MEDS: OLANZAPINE 5 MG TAB PO SCH (21:13)
[2017-10-27] MEDS: LORAZEPAM 0.5 MG TAB PO PRN (23:08)
[2017-10-28] VITALS (7 sets, daily range): BP systolic 159–166; BP diastolic 79–82; PULSE 75–93; TEMP 36.5–36.6; O2SAT 93–100
[2017-10-28 07:18] LABS: HEMATOCRIT 27.7 % (42-52); HEMOGLOBIN 8.8 g/dL (14.0-18.0); MEAN CELL VOLUME 91.1 fL (80-100); MEAN CORPUSCULAR HEMOGLOBIN 28.9 pg (25-34); MEAN CORPUSCULAR HGB CONC 31.8 g/dl (32-36); MEAN PLATELET VOLUME 9.7 fL (7.4-10.4); PLATELET COUNT 218 K/uL (130-400); RED CELL DISTRIBUTION WIDTH CV 15.6 % (11.5-14.5); WHITE BLOOD COUNT 5.41 K/uL (4.8-10.8)
[2017-10-28] MEDS: ALBUT/IPRATROP 3MG/0.5MG NEB 3 ML VIAL INH SCH ×2 (07:33→11:09)
[2017-10-28 07:39] LABS: CALCIUM 8.4 mg/dl (8.5-10.1); CREATININE 0.84 mg/dl (0.60-1.40); POTASSIUM 3.4 mmol/L (3.5-5.1)
[2017-10-28] MEDS: LISINOPRIL 2.5 MG TAB PO SCH (08:22)
[2017-10-28] MEDS: SERTRALINE HCL 100 MG TAB PO SCH (08:22)
[2017-10-28] MEDS: POTASSIUM CHLORIDE 20 MEQ TABCR PO SCH (08:23)
[2017-10-28] MEDS: MIDODRINE 2.5 MG TAB PO SCH (08:23)
[2017-10-28] MEDS: PANTOprazole SOD 40 MG TAB PO SCH (08:24)
[2017-10-28] MEDS: LACTOBACILLUS ACIDOPHILUS (FLORANEX) TAB PO SCH (08:24)
[2017-10-28] MEDS: MAGNESIUM OXIDE 400 MG TAB PO SCH (08:24)
[2017-10-28] MEDS ORDERED: MGNO400 PO (08:42)
[2017-10-28] MEDS ORDERED: MCRK20 PO (08:42)
[2017-10-28] MEDS ORDERED: LVQ750 PO (08:42)
[2017-10-28] MEDS ORDERED: WLL75 PO (08:42)
[2017-10-28] MEDS ORDERED: ZLF/100 PO (08:42)
[2017-10-28] MEDS ORDERED: PRD20 PO (08:42)
[2017-10-28] MEDS ORDERED: DSY50 PO ×2 (08:42)
[2017-10-28] MEDS ORDERED: LSN25 PO (08:42)
[2017-10-28] MEDS ORDERED: LSX40 PO (08:42)
--- NOTE | 2017-10-28 08:43 | Discharge Instructions ---
Discharge Instructions Date of Service October 28, 2017. Admission Reason for Admission: Heart Failure, Uti Discharge Discharge Diagnosis / Problem: klebsiella and Pseudomonas UTI, Discharge Goals Goal(s): Decrease discomfort, Improve function, Increase independence, Improve disease control, Improve nutritional status, Learn about illness, Diagnostic testing, Therapeutic intervention, Prevent Disease Progression, Specific goals Activity Recommendations Activity Limitations: resume your previous activity . Instructions / Follow-Up Instructions / Follow-Up you are having klebsiella and Pseudomonas UTI, you need to continue 1 day more of antibiotics you have mild acute on chronic diastolic heart failure you have Acute respiratory distress possible combined acute on chronic diastolic CHF exacerbation and history of COPD/asthma you need to continue 40 mg, and potassium, follow up labs with pcp, need [facility] draw blood in 2 days, report result to pcp will continue oral prednisone: tapering dose of Oral Prednison: 20 mg tabs 2 tab po bid for 2 days, then 1 tab po bid for 2 days, then 1 tab po daily for 2 days, then 1/2 tab po daily for 2 days, then stop you have Anxiety, you need to taper off of oral Ativan at home. Would suggest 0.25 mg at bedtime 1 week, then discontinue. Has increase trazodone to 150 mg nightly to target sleep, and you can use low dose trazodone of 25 mg every 6 hours as needed for anxiety. you have Bowel movement control problem, you reported your PCP has plan to request Dr. Soria consultation for option of colostomy, I talked to Dr. Soria, Dr. Soria recommend colorectal surgeon from [place], they have office in [place] Dr. Vasquez and Dr. Mojica: please talk to your PCP to [facility] and to refer you to them, you need to continue Home O2 2 L continuously . we strongly recommend to rehab, however, you want to go home , call pcp if you change your mind. - you need to follow up with your primary care physician in 1 week, - take medication as instructed, never overdose or any misuse, or take with alcohol, because misuse of medicine may cause organ damage or , call me , or your primary care physician if have questions of discharge medicaitons. - call your primary care physician, or go to local emergency room if has any fever/chill, chest pain, shortness of breathing, nausea/vomiting/abdominal pain , facial droop/slurry speech/local weakness, or if has any questions. - fall precaution - diet as instructed - you should understand that it is important to follow up the above instruction , and "not following the above instruction" may cause delayed or missed care of your medical conditions which may cause permanent organ damage and even . Current Hospital Diet Patient's current hospital diet: Low Sodium Diet (2gm Na) Discharge Diet Recommended Diet: AHA Diet (Heart Healthy), Low Sodium Diet (2gm Na) Fluid Restriction: 1800 ml (7 cups) Pending Studies Studies pending at discharge: no Laboratory Results Meds Administered (Past 24Hrs) Medications (Trade) Dose Ordered Sig/Fabricio Route Start Time Stop Time Status Last Admin Dose Admin Furosemide 40 mg/ Syringe 4 ml @ 4 mls/min DAILY IV 10/27/17 08:00 10/27/17 15:49 DC 10/27/17 08:20 4 MLS/MIN Potassium Chloride (Klor-Con M10) 40 meq 0930 ONCE PO 10/27/17 09:30 10/27/17 09:31 DC 10/27/17 09:37 40 MEQ Furosemide (Lasix Tab) 40 mg QAM PO 10/28/17 09:00 11/27/17 08:59 10/28/17 08:22 40 MG Medical Emergencies . Who to Call and When: Medical Emergencies: If at any time you feel your situation is an emergency, please call 911 immediately. . Non-Emergent Contact Non-Emergency issues call your: Primary Care Provider . . "Provider Documentation" section prepared by Avni oRsario. .
[2017-10-28] MEDS ORDERED: FUROSEMIDE 40 MG TAB PO SCH (09:00)
[2017-10-28] MEDS ORDERED: POTASSIUM CHLORIDE 10 MEQ TABCR PO ONE (09:00)
--- NOTE | 2017-10-28 09:53 | Discharge Summary ---
Discharge Summary Date of Service October 28, 2017. Discharge Summary Admission Date: October 22, 2017 at 09:06 Discharge Date: October 28, 2017 Principal Diagnosis: klebsiella and Pseudomonas UTI, Problems/Secondary Diagnoses: mild acute on chronic diastolic heart failure Acute respiratory distress possible combined acute on chronic diastolic CHF exacerbation and history of COPD/asthma Anxiety, Immunizations: Have You Had Influenza Vaccine: Yes Influenza Vaccine Date: Apr 02, 2008 History of Tetanus Vaccine?: Yes Tetanus Immunization Date: Jun 02, 2005 History of Pneumococcal: Yes Pneumococcal Date: Jun 02, 2000 History of Hepatitis B Vaccine: Yes Hepatitis Immunization Date: Jun 02, 1998 Procedures: no Consultations: psych, cardio Medication Reconciliation New Medications: Bupropion HCl (Bupropion HCl) 75 Mg Tab 75 MG PO [id number] for 30 Days, TAB Furosemide (Furosemide) 40 Mg Tab 40 MG PO QAM for 30 Days, #30 TAB Levofloxacin (Levofloxacin) 750 Mg Tab 750 MG PO DAILY@11 for 1 Day, TAB Lisinopril (Lisinopril) 2.5 Mg Tab 2.5 MG PO QAM for 30 Days, #30 TAB Magnesium Oxide (Magnesium-Oxide) 400 Mg Tab 400 MG PO BID for 30 Days, #60 TAB Potassium Chloride (Klor-Con M20) 20 Meq Tabcr 30 MEQ PO DAILY for 30 Days Prednisone (Prednisone) 20 Mg Tab 40 MG PO DAILY for 8 Days, #16 TAB 2 tab po bid for 2 days, then 1 tab po bid for 2 days, then 1 tab po daily for 2 days, then 1/2 tab po daily for 2 days, then stop Sertraline HCl (Sertraline HCl) 100 Mg Tab 100 MG PO DAILY for 30 Days, #30 TAB Trazodone HCl (Trazodone HCl) 50 Mg Tab 150 MG PO HS for 30 Days, TAB Trazodone HCl (Trazodone HCl) 50 Mg Tab 25 MG PO Q6 PRN for anxiety for 30 Days, #60 TAB Continued Medications: Acetaminophen (Tylenol) 500 Mg Tab 1000 MG PO Q6 PRN for Pain, TAB Albuterol Hfa (Ventolin Hfa) 200 Puffs/66839 Mcg Aers 2-4 PUFFS INH Q6H PRN for Shortness of Breath, #1 INHALER Calcium W/ Magnesium (Calcium/Magnesium) 1 Tab Tab 1 TAB PO QAM Cholecalciferol (Vitamin D3) 2,000 Unit Cap 2 CAP PO QAM for 90 Days, #180 CAP 3 Refills Cyanocobalamin (Vitamin B12) Unknown Strength Tab 1 TAB PO DAILY Dicloxacillin Sodium (Dynapen) 250 Mg Cap 250 MG PO QID Ferrous Sulfate (Ferrous Sulfate) 325 Mg Tab 325 MG PO BID Fluticasone Prop/Salmeterol (Advair Diskus 250-50 Mcg/Dose) 14 Puff/1 Inhaler Aerp 1 PUFF INH BID PRN for SOB/Wheezing Lorazepam (Lorazepam) 0.5 Mg Tab 0.25 MG PO HS Midodrine Hcl (Midodrine Hcl) 5 Mg Tab 5 MG PO BID Olanzapine (Olanzapine) 5 Mg Tab 5 MG PO HS Pantoprazole (Pantoprazole Sodium) 40 Mg Tab 40 MG PO DAILY Probiotic Product (Florajen3) 1 Cap Cap 1 CAP PO DAILY Discontinued Medications: Potassium Ext Rel (Klor-Con) 20 Meq Tabcr 20 MEQ PO DAILY Sertraline HCl (Sertraline HCl) 25 Mg Tab 75 MG PO DAILY Discharge Exam no acute event last night, doing fair, mild wet cough, no fever /chill Review of Systems: Constitutional: + weakness, + fatigue, No fever, No chills, No sweats, No weight loss, No problem reported Eyes: No worsening of vision, No eye pain, No redness, No discharge, No diplopia, No problem reported ENT: No hearing loss, No unusual epistaxis, No nasal symptoms, No sore throat, No tinnitus, No dental problems, No trouble swallowing, No problem reported Respiratory: + cough, + wheezing, No sputum, No shortness of breath, No dyspnea on exertion, No dyspnea at rest, No hemoptysis, No problem reported Cardiovascular: No chest pain, No orthopnea, No PND, No edema, No claudication, No palpitations, No problem reported Abdomen: No pain, No nausea, No vomiting, No diarrhea, No constipation, No GI bleeding, No problem reported Musculoskeletal: No joint pain, No muscle pain, No swelling, No calf pain, No problem reported Genitourinary - Male: No hematuria, No dysuria, No urinary frequency, No urinary urgency, No urinary hesitancy, No urinary retention, No urinary incontinence, No penile discharge, No lesions, No impotence, No problem reported Neurologic: + paralysis Psychiatric: + anxiety (mild), No depression symptoms, No anhedonism, No insomnia, No substance abuse, No problem reported Endocrine: No fatigue, No excessive thirst, No excessive urination, No problem reported Hematologic / Lymphatic: No abnormal bleeding/bruising, No clotting problems , No swollen lymph nodes, No night sweats, No problem reported Integumentary: No rash, No itch, No new/changing skin lesions, No color change, No bleeding, No problem reported Physical Exam: General Appearance: WD/WN, + mild distress Eyes: normal inspection, PERRL ENT: normal ENT inspection, hearing grossly normal, TMs normal Neck: supple, no adenopathy, thyroid normal Respiratory/Chest: chest non-tender, + decreased breath sounds, + crackles ( left lwoer lung fine crackles), + rales, + wheezing (mild ) Cardiovascular: regular rate, rhythm, no gallop, no JVD, normal peripheral pulses, + pertinent finding (1+ edeam) Abdomen / GI: normal bowel sounds, non tender, soft Extremities: normal inspection, no calf tenderness, + swelling Neurologic/Psychiatric: lead technologist in cytogenetics II-XII nml as tested, no motor/sensory deficits , + motor weakness Skin: normal color Hospital Course 67-year-old male presents admitted on October 19, 2017 with shortness of breath and fever concerns for infectious source could be lung or urine, previous history of MSSA infection from his back with lower extremity paralysis Later found he has klebsiella and Pseudomonas UTI, and mild acute on chronic diastolic CHF exacerbation Acute respiratory distress possible combined acute on chronic diastolic CHF exacerbation and history of COPD asthma possible acute on chronic mild type I diastolic dysfunction, Stable improving, has been on 40 mg IV Lasix daily, changed to po upon discharge Continue lisinopril 2.5 mg p.o. daily, which is new for him History of COPD and history of asthma, stable will maintain his Advair, continue DuoNeb was need BiPAP 2 days ago, off last night doing well, home [place] o2 has been setting up Continue oral prednisone, and give tapering dose for 8 days, DuoNeb treatment because patient history of COPD currently is wheezing, Hypomagnesemia and hypo-kalemia replaced and follow-up Bilateral lower extremity paralysis or paraplegia is not new, stable Anxiety, psychiatry input appreciated, patient agree with taper off this medication, stable Recommendation from psychiatry, he still has some at home, so will not need a prescription at discharge, but will need instructions to taper off of it. Would suggest 0.25 mg at bedtime 1 week, then discontinue. Has increase trazodone to 150 mg nightly to target sleep, and may try a low dose of 25 mg every 6 hours as needed for anxiety. Bowel movement control problem from his paralyzed, he reported PCP has plan to request Dr. Soria consultation for option of colostomy, I talked to Dr. Soria, Dr. Soria recommend colorectal surgeon from [facility], they have office in [place] Dr. Vasquez and Dr. Mojica: PCP please follow-up and to refer patient to them, discussed with the patient, he agreed of this plan full code Patient declined to rehab [place] operator DVT and GI prophylaxis are covered Discharge home with [facility] we strongly recommend to rehab, however, you want to go home , call pcp if you change your mind. he is high risks of readmission Instructions / Follow-Up you are having klebsiella and Pseudomonas UTI, you need to continue 1 day more of antibiotics you have mild acute on chronic diastolic heart failure you have Acute respiratory distress possible combined acute on chronic diastolic CHF exacerbation and history of COPD/asthma you need to continue 40 mg, and potassium, follow up labs with pcp, need [facility] draw blood in 2 days, report result to pcp will continue oral prednisone: tapering dose of Oral Prednison: 20 mg tabs 2 tab po bid for 2 days, then 1 tab po bid for 2 days, then 1 tab po daily for 2 days, then 1/2 tab po daily for 2 days, then stop you have Anxiety, you need to taper off of oral Ativan at home. Would suggest 0.25 mg at bedtime 1 week, then discontinue. Has increase trazodone to 150 mg nightly to target sleep, and you can use low dose trazodone of 25 mg every 6 hours as needed for anxiety. you have Bowel movement control problem, you reported your PCP has plan to request Dr. Soria consultation for option of colostomy, I talked to Dr. Soria, Dr. Soria recommend colorectal surgeon from [facility], they have office in [place] Dr. Vasquez and Dr. Mojica: please talk to your PCP to ollow-up and to refer you to them, you need to continue Home O2 2 L continuously . we strongly recommend to rehab, however, you want to go home , call pcp if you change your mind. - you need to follow up with your primary care physician in 1 week, - take medication as instructed, never overdose or any misuse, or take with alcohol, because misuse of medicine may cause organ damage or , call me , or your primary care physician if have questions of discharge medicaitons. - call your primary care physician, or go to local emergency room if has any fever/chill, chest pain, shortness of breathing, nausea/vomiting/abdominal pain , facial droop/slurry speech/local weakness, or if has any questions. - fall precaution - diet as instructed - you should understand that it is important to follow up the above instruction , and "not following the above instruction" may cause delayed or missed care of your medical conditions which may cause permanent organ damage and even . Total Time Spent: Greater than 30 minutes This includes examination of the patient, discharge planning, medication reconciliation, and communication with other providers. Discharge Instructions Please refer to the electronic Patient Visit Report (Discharge Instructions) for additional information. Additional Copies To William Hudson D.O.
[2017-10-29] MEDS ORDERED: POTASSIUM CHLORIDE 10 MEQ TABCR PO SCH (09:00)
--- NOTE | 2017-10-31 09:30 | Medical Consult ---
Consultation Date of Consultation: October 31, 2017. Attending Physician: Avni Rosario MD, PhD Reason for Consultation: colostomy History of Present Illness see A/P Past Medical/Surgical History Medical Problems: (1) Acute blood loss anemia Status: Acute (2) JORDAN (acute kidney injury) Status: Acute (3) Hypokalemia Status: Acute (4) Hypovolemic shock Status: Acute (5) Pneumonia Status: Acute (6) Sepsis Status: Acute (7) Spinal abscess Status: Acute Surgical Problems: (1) S/P laminectomy Status: Acute Family History No pertinent family history Social History Smoking Status: Never Smoker Drug Use: none Marital Status: Housing Status: lives with significant other Occupation Status: employed Allergies Coded Allergies: No Known Drug Allergy (Verified Allergy, Unknown, ., 07/10/17) POLLEN (Verified Allergy, Unknown, HAY FEVER, 05/22/16) NSAIDs (Verified Adverse Reaction, Unknown, doesn't take had gastric bypass, 07/10/17) Assessment & Plan 10/31/17- I did not see pt during hospitalization- discussed plan with Dr Rosario please see his note
--- NOTE | 2017-11-01 13:17 | EDITING REQUIRED CODING QUERY ---
CODING QUERY To promote full compliance with coding requirements relating to patient care, provider participation is requested in all cases of manager talent management uncertainty. Please assist us with the question(s) below: In the record, it states that the patient has an UTI. Please clarify below the cause of the UTI if applicable. Thank you. (x ) possible The chronic haynes was the cause of the UTI. ( ) Other urinary cath/device was the cause of the UTI. ( ) UTI, unspecified cause. ( ) Other (Specify): Principal Diagnosis: "_that condition established after study, to be chiefly responsible for occasioning the admission of the patient to the hospital for care." Co-Existing Principal Diagnosis: "_when two or more diagnoses equally meet the criteria for principal diagnosis as determined by the circumstances of admission, diagnostic work up, and/or therapy provided, and the Alphabetic Index, Tabular List, or another coding guideline does not provide sequencing direction, any one of the diagnoses may be sequenced first." "When the physician has documented what appears to be a current diagnosis in the body of the record, but has not included the diagnosis in the final diagnostic statement, the physician should be asked whether the diagnosis should be added." (Source Coding [facility] 2 QTR90. p3-4)
--- NOTE | 2017-11-01 16:31 | Progress Note ---
Progress Note Date of Service November 01, 2017. Progress Note Thank you allowing me to assess Dr. Ronen Levi last Sunday at Dr. Garcia's request. Please excuse the delay secondary to technical difficulties. 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 He seen today for rehabilitation evaluation and recommendations. 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 He had a long-standing history of back pain and neck pain who was taken to the operating room in the past and underwent a lumbar fusion. He developed lumbar spinal stenosis above his prior lumbar fusion return to the operating room and June where he underwent a lumbar decompression and extension of fusion to lower thoracic spine down to his lumbar spine. Procedure was successful he is discharged home in home care services with an indwelling drain. Approximately 2 weeks postop he did unfortunately developed purulent drainage dysesthesias and progressed rapidly progressive lower extremity weakness with sepsis. He was briefly assessed the [facility] with extensive myelopathy neurogenic bowel and bladder and generalized sepsis. He underwent an emergency anterior cervical decompression was afforded prolonged IV antibiotics. Initially he was admitted to [facility] for approximately 1 week in July and then unfortunately returned to the acute hospital for prolonged stay. He was discharged to [facility] approximately September 16 where he remained for 2 weeks. At that time his combination of high paraplegia chronic bilateral shoulder weakness resulted in limited progress. He was discharged home mid-September with home health nursing and physical therapy having completed his IV antibiotics. Dr. Levi remained at home with dysfunctional neurogenic bowel and no predictable schedule no predictable medications with chronic incontinence he wears briefs. He is exploring options for colostomy in order to improve his capacity for self-management. He has a chronic indwelling Mckeon. Is independent in eating. He has not noticed any improvement in his sensation or motor function from his midthoracic spine. He is waiting for delivery of a power wheelchair with joystick control. Presently he requires assistance from his with a manual lift device. They do have a loaner power wheelchair with joystick controls. He does reside in a standard mattress and is unfortunately developed a sacral decubitus ulcer. He receives home nursing assistance for management of this ulcer. His provides for his attendant care and specifically his bowel and bladder needs transfers. He is nonambulatory. He and his spouse reside at home two-story dwelling with one floor set up. Further household modification to provide wheelchair accessible bathroom adjacent to the Ramiro is has been initiated. Does not have a wheelchair van. Neither he nor her spouse have prescribed bowel management program. On brief examination patient is sitting quietly in bed eating his lunch. He has bilateral mild to moderate adhesive capsulitis of the shoulders with some subacromial tenderness particularly in the right side and mild to moderately positive impingement. He is unable to reach his sacrum or occiput readily. He does have reasonable strength grade 3+ both proximal through distal upper extremities. There is a sensory transition level at T4. Distal to T4 there is no motor or sensory perception or control. He has no sacral sparing evident. He has severe spasticity with clonus at the knees and ankles and early hip with knee flexion contractures. Title summation first My impression Dr. 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 Neurogenic bladder with Mckeon catheter, dysfunctional neurogenic bowel, sacral decubitus ulcer. Recommendation first Patient is anticipating a power wheelchair with joystick control delivery shortly be admission to inpatient rehabilitation at [facility] or [facility] upon receipt of the power wheelchair to optimize bed to wheelchair transfers and bowel and bladder care as well as wheelchair to shower chair transfers. Stents of discussion and reference list was provided to Dr. Levi that he may read since instruct himself in weightbearing shoulders, neurogenic bowel and bladder management. Following discussion was agreed that he was not a candidate for inpatient rehabilitation at [facility] at this time but home with home care nursing pending admission to alternate facility is advisable. The above care and management program was discussed with the patient. I met privately with case management further discussed these options. Thank you to
--- NOTE | 2017-11-02 07:44 | REHABILITATION CONSULTATION ---
DATE OF CONSULTATION: 10/29/2017 Patient seen last Sunday on admission to hospital at Dr. Mills's request for rehabilitative evaluation. 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 At that time, he developed increasing axial back pain, having had 2 prior spine surgeries of the cervical and lumbar spine. He was taken to the operating room in [facility] where he underwent a lumbar decompression with an extension of his fusion above his prior lumbar fusion. Procedure was successful. He was discharged home within 2-3 days. At home he was convalescing with the assistance of home health services. Approximately 2 weeks postop developed sudden onset of severe back pain associated with purulent discharge and progressive numbness, tingling and weakness in both lower extremities. He was seen in the ER at [facility] and transferred to [facility] where he underwent urgency evaluation and admission. He was determined to have suffered cervical and spinal abscesses, acute cervical purulent spinal stenosis. He underwent an anterior cervical decompression and fusion. Postop, he remained high paraplegic with neurogenic bowel and bladder. He was briefly admitted to [facility] rehabilitation for 1 week in July. He had a medical crisis, was readmitted to the acute hospital, engaged in ongoing IV antibiotics. He was subsequently discharged to [facility] acute inpatient rehabilitation approximately September 16 where he remained for 2 weeks. He was discharged to his home in the middle of September. It was determined that he was no longer benefiting from inpatient rehabilitation. Ongoing care was necessary. Client returned to home with the aid of home health services. He wore briefs all the time. Indwelling Mckeon catheter was placed. He had frequent bowel incontinence with no predictable bowel training initiated. His stools were frequently loose. He was independent in eating. He did have shallow respirations with occasional choking and coughing. He remained totally dependent for bed mobility, transfers. He required a mechanical lift to get in and out of bed. He could dress his upper body, but required assistance for perineal dressing and lower body bathing and dressing. He mobilized at home with the aide of a loaner power wheelchair. Specific custom power wheelchair was prescribed by the staff at [facility]. He is awaiting delivery. This wheelchair affords some joystick control, it allows him to raise and lower his wheelchair and to tilt backwards to relieve his perineal pressure. As stated he is awaiting delivery imminently. Unfortunately, during the course of care at home, he has developed a sacral decubitus ulcer. His weight is approximately 200 pounds, having him previously undergone gastric bypass and down from well over 300. SOCIAL HISTORY: Patient lives at home with his spouse who provides for his assistance an attendant care. They have limited home health services to provide for physical therapy, occupational therapy. He really does need advanced attendant care at home, but this has not been economically available. 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 He has not worked since his recent convalescence. In the above background, he presented to [facility] with shortness of breath and illness. He was admitted to the medical service under Dr. Mills where he was managed for pneumonia and pulmonary congestion consistent with heart failure. He does have a chronic urinary tract infection in keeping with his chronic indwelling Mckeon. He has not seen a urologist. He does not have any specific management for spasticity. PAST SURGICAL HISTORY: As described includes remote cervical spine fusion, remote lumbar laminectomy, recent revised lumbar laminectomy in June, subsequent complication with paraspinal infection requiring emergency anterior cervical decompression and fusion, prolonged IV antibiotics. PHYSICAL EXAMINATION: He is alert, cooperative, resting in bed. Screening neurologic exam reveals approximately T3-4 motor or sensory level. His cranial nerves II-XII are within normal limits. His motor strength in both upper extremities is generally intact with the exception that he has evidence of chronic bilateral rotator cuff arthropathy with mild adhesive capsulitis. In particular, he has some right subacromial tenderness and mild impingement tendinitis. He does have otherwise good power in both arms. As stated, there is a zone of transition at approximately T3-4 about his nipple level bilaterally. Distal to T3-4 he has no preservation of sensation to light touch and no motor function. His tone in his abdomen, lower extremities is spastic. There are slight hip and knee flexion contractures. I did not visualize his sacrum where he intimated that there is a decubitus ulcer. Reflexes are brisk, clonus at knees and ankles, bilateral upgoing toes. IMPRESSION: A. 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 B. Status post lumbar decompression and extension of his fusion 06/2017 and 07/2017. The postop complication with paraspinal infection with abscess formation resulting in extension of paralysis. C. T3-4 SHAKIR ([employer]) complete spastic paraplegia. Neurogenic bowel and bladder. D. Self-reported sacral decubitus ulcer, not visualized. E. Admission to the hospital with acute shortness of breath. F. Patient is dependent for bed mobility, transfers. He is certainly nonambulatory. He was waiting to delivery of a power wheelchair. RECOMMENDATION: I spoke with cyanide case hardener in great detail that the patient ideally would benefit from a course of inpatient rehabilitation longer than 2 weeks to emphasize functional independence in bowel care. Optimize his bladder care and management; further optimizing bed to power wheelchair transfers, wheelchair to bedside commode transfers. He and his spouse are completing home modification with 1 floor setup that would allow him main floor living with a bathroom extension. At such time rehabilitative optimization for bed mobility, transfers, bowel care would be ideal. 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 He was not interested in exploring admission to [facility] at this present time. We discussed referral to [facility] where his son is in psychiatric practice or to [facility] at [facility], both facilities are part of the model systems for spinal cord injury.
== END 2017-10-28 13:14 | disposition home or self-care (01) | DRG 699 ==
LOC: EDBD 14:00 → C.EDC 14:02 → C.2T 17:38 → ENRESERV 17:49 → OBSVTOIN 10-22 09:06 → ENRESERV 10-22 12:40 → C.MS4W 10-22 14:30 → C.2T 10-24 07:32 → ENRESERV 10-24 07:37 → C.4E 10-25 09:29 → ENRESERV 10-25 09:51 → C.2T 10-26 08:18 → ENRESERV 10-26 08:41
PROVIDERS: ADMIT Internal Medicine; ATTEND Hospitalist
DX: T83.511A Infection and inflammatory reaction due to indwelling urethral catheter, initial encounter (principal); G82.20 Paraplegia, unspecified; N39.0 Urinary tract infection, site not specified; I10 Essential (primary) hypertension; Z79.2 Long term (current) use of antibiotics; N13.9 Obstructive and reflux uropathy, unspecified; J44.9 Chronic obstructive pulmonary disease, unspecified; B96.1 Klebsiella pneumoniae [K. pneumoniae] as the cause of diseases classified elsewhere; B96.5 Pseudomonas (aeruginosa) (mallei) (pseudomallei) as the cause of diseases classified elsewhere; J45.909 Unspecified asthma, uncomplicated; F41.9 Anxiety disorder, unspecified; E83.42 Hypomagnesemia; Y84.6 Urinary catheterization as the cause of abnormal reaction of the patient, or of later complication, without mention of misadventure at the time of the procedure